=== PATIENT | female | born 1940 | race Caucasian/White ===

== ENCOUNTER 2020-09-21 11:47 | Inpatient (IN) | payer MEDICARE, OTHER, SELFPAY ==
[2020-09-21] VITALS (7 sets, daily range): BP systolic 158–203; BP diastolic 75–92; PULSE 55–65; RESP 16–46; TEMP 36.2–37.1; O2SAT 92–95; BMI 25.0; BMI 26.3; BMI 27.3
--- NOTE | 2020-09-21 12:09 | RAD_ITS ---
STUDY: X-RAY CHEST REASON FOR EXAM: Female, 79 years old. Weakness x3 days. TECHNIQUE: Single AP portable view of the chest. COMPARISON: 01/16/2017 FINDINGS: EKG leads overlie the chest There are interstitial changes of the lungs. There is no demonstrated pleural abnormality. Normal size heart. Normal mediastinum and daniel. Normal visualized pulmonary arteries. There is atherosclerotic calcification of the aortic arch with tortuosity. There are diffuse degenerative changes of the visualized thoracic spine. There is degenerative osteoarthritis of the bilateral shoulders. Stable retrocardiac hiatal hernia RAD/Chest 1 View (Portable) IMPRESSION: Degenerative changes, as described above. No demonstrated acute cardiopulmonary process. No interval change Electronically Signed: Song Quintanilla MD at 13:55 EST , Service support ,
--- NOTE | 2020-09-21 12:09 | CT_ITS ---
STUDY: CT BRAIN WITHOUT CONTRAST REASON FOR EXAM: Female, 79 years old. WEAKNESS RADIATION DOSAGE (If Supplied By Facility): CTDIvol = ( 44.99 ) mGy, DLP = ( 829.85 ) mGycm TECHNIQUE: Transaxial CT imaging of the brain was performed without administration of intravenous contrast material. Individualized dose optimization techniques were used for this CT. COMPARISON: None. FINDINGS: There is cerebral atrophy with widening of the extra-axial spaces and ventricular dilatation. There are areas of decreased attenuation within the white matter tracts of the supratentorial brain, consistent with microvascular disease changes. There is no intracranial hemorrhage. There are no findings of an acute ischemic infarction. CT/Brain/Head without Contrast IMPRESSION: Chronic involutional changes of the brain. Electronically Signed: Keyla Villagomez MD at 13:33 EST Tel , Service support ,
--- NOTE | 2020-09-21 12:10 | EKG12_ITS ---
Test Reason : WEAKNESS Blood Pressure : / mmHG Vent. Rate : 055 BPM Atrial Rate : 055 BPM P-R Int : 278 ms QRS Dur : 120 ms QT Int : 440 ms P-R-T Axes : 045 -25 128 degrees QTc Int : 420 ms Sinus bradycardia with 1st degree A-V block Left ventricular hypertrophy with QRS widening and repolarization abnormality Abnormal ECG Confirmed by CHARLES HAMEED, LEXI ([id number]), editor managing newspaper MATTHEW TBOIAS ([id number]) on 09/23/2020 1:45:30 PM Referred By: ANU Confirmed By:LEXI SOTO MD
--- NOTE | 2020-09-21 12:13 | ED.VIS.GEN ---
History of Present Illness Chief Complaint: Weakness Informant: Patient, Family Onset: Days - 3 Context: Gradual Onset Timing: Continuous Quality: sore Location: R hip Current Severity: Severe Maximum Severity: Severe Worsened by: moving/trying to stand/walk Relieved by: remaining still Associated Symptoms: confused Narrative: Patient is in assisted living, has had a health aide checking on her last couple days, she has been confused, she has had blood pressures in the 140-160 range systolic but heart rates in the 50s. Patient denies any lightheadedness or syncope/near syncope but has been more confused whereas she is usually very sharp, and getting weak. Today she was unable to stand or walk. She complains of discomfort in her right hip intermittently, it sounds like she is basically having this whenever she tries to stand or walk but states that is not what is limiting her, it is the weakness. She points to her right upper pelvis, not her hip joint. She denies any other new symptoms. She has not had Covid 19, and did have the 2 vaccines for it. - Past Medical History (1) Coronary artery disease Status: Chronic (2) Anxiety disorder Status: Chronic (3) Bipolar disorder Status: Chronic (4) HTN (hypertension) Status: Chronic (5) Hiatal hernia Status: Chronic (6) History of DVT (deep vein thrombosis) Status: Chronic Past Medical History - Allergies and Home Meds Allergies/Adverse Reactions: Allergies ciprofloxacin [From Cipro] Allergy (Verified 09/21/20 11:53) Itching sulfamethoxazole [From Bactrim] Allergy (Verified 09/21/20 11:53) Itching trimethoprim [From Bactrim] Allergy (Verified 09/21/20 11:53) Itching Primary Care Physician: Edu Hdz MD [Primary Care Provider] - Surgical History: angioplasty, hysterectomy, total hip arthroplasty Lives: - - Assisted living Smoking Status: Never smoker Review of Systems General: Reports: Malaise. Denies: Chills, Fever, Sweats Eyes: Denies: Visual changes - bilaterally, Diplopia ENT: Denies: Rhinorrhea, Sore throat Cardiovascular: Denies: Chest pain, Palpitations Respiratory: Denies: Dyspnea, Cough, Dyspnea on exertion Gastrointestinal: Denies: Abdominal pain, Nausea, Vomiting, Diarrhea, Melena, Hematochezia Genitourinary: Denies: Dysuria, Hematuria, Frequency Musculoskeletal: Reports: Extremity Pain - R hip only - see HPI. Denies: Myalgias, Back pain Skin: Denies: Rash, Wounds Neurological: Reports: - - confused. Denies: Headache, Weakness, Numbness Physical Exam Vital Signs/Narrative: Vital Signs Temp Pulse Resp BP Pulse Ox 09/21/20 11:49 97.7 F L 58 L 46 H 197/85 H 92 Inital Vital Signs reviewed: Yes General: Well nourished, Well developed, No Acute Distress Head: Normocephalic, Atraumatic Eyes: Perrl, EOMI ENT: Moist mucous membranes, No rhinorrhea Neck: Supple, Nontender, No lymphadenopathy Cardiovascular: Regular rate, Regular rhythm, No murmurs, Bradycardia Respiratory: No distress, CTA bilaterally, Chest nontender Abdomen: Soft, Nontender, Nondistended, Normal bowel sounds Back: Nontender, Normal Inspection Extremities: Tenderness - Mildly tender at the right pelvic brim and ASIS, but not the greater trochanter or the rest of the extremities. Painless internal/external rotation of the right hip. Increased pain at the right pelvis with right thigh flexion which the patient is able to do without assistance., Edema - 1+ both lower extremities, symmetric, without signs of acute cellulitis. Negative for: Calf Tenderness Skin: Normal color, No rash, No Trauma Neurological: Alert, Cranial nerves II-XII grossly intact, Normal Strength, Normal Sensation, - - Oriented to person and place not time Psychological: Normal affect, Normal Mood Diagnostic/Tx/Re-eval Impressions Brain CT 09/21/20 12:09 IMPRESSION: Chronic involutional changes of the brain. Electronically Signed: Keyla Villagomez MD at 13:33 EST Tel , Service support , Chest X-Ray 09/21/20 12:09 IMPRESSION: Degenerative changes, as described above. No demonstrated acute cardiopulmonary process. No interval change Electronically Signed: Song Quintanilla MD at 13:55 EST , Service support , 09/21/20 12:09 Brain/Head without Contrast [CT] Stat Chest 1 View (Portable) [RAD] Stat 09/21/20 12:20 Mucosa - Nose SARS-CoV-2 Antigen (Rapid) - Final Laboratory Results 09/21/20 09/21/20 09/21/20 12:23 12:23 12:23 WBC 8.7 RBC 3.74 L Hgb 12.2 Hct 34.4 L MCV 92.0 MCH 32.6 H MCHC 35.5 RDW Std Deviation 41.4 RDW Coeff of [place] 12.2 Plt Count 187 MPV 10.0 Immature Gran % (Auto) 0.500 Neut % (Auto) 78.9 H Lymph % (Auto) 12.0 L [place] % (Auto) 7.9 Eos % (Auto) 0.5 Baso % (Auto) 0.2 Absolute Neuts (auto) 6.8 Absolute Lymphs (auto) 1.04 Nucleated RBC % 0 Sodium 114 L* Potassium 4.1 Chloride 76 L Carbon Dioxide 30.0 Anion Gap 8 BUN 22 H Creatinine 0.83 Estim Creat Clear Calc 42.04 Est GFR (MDRD) Af Amer 85 Est GFR (MDRD) Non-Af 70 BUN/Creatinine Ratio 26.5 H Glucose 102 Lactic Acid 0.8 Calcium 8.7 Total Bilirubin 0.40 AST 46 H ALT 20 Alkaline Phosphatase 69 Troponin I 0.152 H Total Protein 7.4 Albumin 3.3 Globulin 4.1 Albumin/Globulin Ratio 0.8 L Urine Color Urine Clarity Urine pH Ur Specific [place] Urine Protein Urine Glucose (UA) Urine Ketones Urine Occult Blood Urine Nitrite Urine Bilirubin Urine Urobilinogen Ur Leukocyte Esterase Urine RBC Urine WBC Ur Squamous Epith Cells Urine Bacteria Urine Mucus 09/21/20 12:45 WBC RBC Hgb Hct MCV MCH MCHC RDW Std Deviation RDW Coeff of [place] Plt Count MPV Immature Gran % (Auto) Neut % (Auto) Lymph % (Auto) [place] % (Auto) Eos % (Auto) Baso % (Auto) Absolute Neuts (auto) Absolute Lymphs (auto) Nucleated RBC % Sodium Potassium Chloride Carbon Dioxide Anion Gap BUN Creatinine Estim Creat Clear Calc Est GFR (MDRD) Af Amer Est GFR (MDRD) Non-Af BUN/Creatinine Ratio Glucose Lactic Acid Calcium Total Bilirubin AST ALT Alkaline Phosphatase Troponin I Total Protein Albumin Globulin Albumin/Globulin Ratio Urine Color Yellow Urine Clarity Clear Urine pH 7.0 Ur Specific [place] 1.010 Urine Protein 30 H Urine Glucose (UA) Normal Urine Ketones Negative Urine Occult Blood 10 H Urine Nitrite Negative Urine Bilirubin Negative Urine Urobilinogen Normal Ur Leukocyte Esterase 25 H Urine RBC 0 SEEN Urine WBC 0 SEEN Ur Squamous Epith Cells 0-5 SEEN Urine Bacteria 0 SEEN Urine Mucus 0 SEEN - Rhythm Strip Rhythm Strip: Sinus Rhythm Rate: 55 Ectopy: None - EKG Initial EKG Interpretation: No Acute Injury Pattern, Sinus Bradycardia, AV Block - 1st deg, Non-Specific ST Changes Prior: Unchanged - Medical Decision Making Patient was given slow normal saline, her work-up is consistent with hyponatremia and a slightly abnormal troponin but otherwise negative for anything acute. She does have bradycardia but has had no near syncopal episodes or lightheadedness. She is hypertensive and we have been watching that, since she has no signs of intracranial hemorrhage, my suspicion is that it is not primarily responsible for her mental status change, but I suspect her hyponatremia is. Plan is for admission and further work-up and treatment. ED Disposition - Plan for ED Patient: Disposition: Acute Care [facility] Diagnosis: Acute hyponatremia, Elevated troponin Referrals: Edu Hdz MD [Primary Care Provider] -
[2020-09-21] MEDS: Acetaminophen 325 MG Tablet 650 MG PO (12:35)
[2020-09-21 12:41] LABS: Absolute Lymphocyte Count 1.04 X10^3/uL (0.83-4.51); Absolute Neutrophil Count 6.8 X10^3/uL (2.0-7.7); Basophil# 0.02 X10^3/uL; Basophil% 0.2 % (0-1); Eosinophil# 0.04 X10^3/uL; Eosinophils% 0.5 % (0-5); Hematocrit 34.4 % (37-47); Hemoglobin 12.2 g/dL (12.0-15.0); Lymphocyte # 1.04 X10^3/ul (4.0); Mean Corp Hgb Conc 35.5 g/dL (32-36); Mean Corpuscular Hgb 32.6 pg (27.0-32.0); Monocyte# 0.68 X10^3/uL; Monocyte% 7.9 % (0-10); NRBC Flagged by Analyzer 0 % (0-5); Neutrophil # 6.84 X10^3/uL (2.7-7.7); Neutrophil % 78.9 % (47-70); Platelet Count 187 K/mm3 (150-450); RBC Distribution Width CV 12.2 % (11.6-14.6); RBC Distribution Width SD 41.4 fl (35.1-43.9); Red Blood Count 3.74 M/mm3 (4.2-5.4); White Blood Count 8.7 K/mm3 (4.4-11.0)
[2020-09-21 12:59] LABS: Lactic Acid 0.8 mmol/L (0.4-1.9)
[2020-09-21] MEDS: 0.9% Normal Saline 1,000 ML 150 ML IV (13:02)
[2020-09-21 13:04] LABS: Bacteria 0 SEEN /hpf (None Seen); Mucous, Urine 0 SEEN /hpf (<or=2+); Red Blood Cells-Urine 0 SEEN /hpf (0-5); White Blood Cells 0 SEEN /hpf (0-5)
[2020-09-21 13:11] LABS: ALB/GLOB Ratio 0.8 RATIO (0.9-2.4); AST(SGOT) 46 U/L (15-37); Alanine Aminotransfer ALT/SGPT 20 U/L (13-56); Albumin, Serum 3.3 g/dL (3.2-5.0); Alkaline Phosphatase 69 U/L (45-117); Anion Gap 8 (5-15); BUN 22 mg/dL (7-18); BUN/Creat Ratio 26.5 RATIO (10-20); Calcium,Total 8.7 mg/dL (8.5-10.1); Chloride 76 mmol/L (98-107); Creatinine, Serum 0.83 mg/dL (0.55-1.02); EST Glomerular Filtration Rate 70 mL/min (>60); Est Glom Filt Rate - Afr Amer 85 mL/min (>60); Estimated Creatinine Clearance 42.04 ml/min; Globulin 4.1 g/dL (2.2-4.2); Glucose 102 mg/dL (74-106); Potassium 4.1 mmol/L (3.5-5.1); Protein, Total 7.4 g/dL (6.4-8.2); Sodium Level 114 mmol/L (136-145)
[2020-09-21 13:12] LABS: Color, Urine Yellow (Yellow); Glucose, Dipstick Normal (Normal); Ketone-Dipstick Negative (Negative); Leukocyte Esterase-Dipstick 25 /ul (Negative); Nitrite-Dipstick Negative (Negative); Occult Blood-Urine 10 /ul (Negative); Protein-Dipstick 30 mg/dl (Negative); Urine Bilirubin Dipstick Negative (Negative); Urine Clarity Clear (Clear); Urine Urobilinogen Normal (Normal)
[2020-09-21 13:20] LABS: Squamous Epithelial Cells - UA 0-5 SEEN /hpf (5-10)
[2020-09-21] MEDS: cloNIDine HCl 0.1 MG Tablet PO (14:37)
--- NOTE | 2020-09-21 15:52 | HP.PCM_ITS ---
<Erika Almendarez [employer] PROFESSOR - Last Filed: 09/21/20 16:08> Problem List (1) Acute hyponatremia Status: Acute (2) Elevated troponin Status: Acute (3) Hiatal hernia Status: Chronic (4) HTN (hypertension) Status: Chronic (5) Bipolar disorder Status: Chronic (6) Anxiety disorder Status: Chronic (7) History of DVT (deep vein thrombosis) Status: Chronic (8) Coronary artery disease Status: Chronic History of Present Illness Date of Admission: 09/21/20 Chief Complaint: Weakness, confusion. The patient is a 79 year old F who presents to the emergency room from assisted living facility due to weakness and confusion. Patient's son at bedside states patient was recently started on diuretic for lower extremity swelling. Patient denies recent illness. She denies nausea, vomiting. Denies upper respiratory symptoms. Denies fever, chills. She states she has chronic intermittent diarrhea which has not worsened from her baseline. She denies chest pain. She has a past medical history of CAD with history of stent, hypertension, bipolar disorder, anxiety, hiatal hernia, history of DVT, venous stasis lower extremities. Past Medical History Past Medical History (Chronic Problems): Chronic Problems Hiatal hernia (Chronic) HTN (hypertension) (Chronic) Bipolar disorder (Chronic) Anxiety disorder (Chronic) History of DVT (deep vein thrombosis) (Chronic) Coronary artery disease (Chronic) Allergies ciprofloxacin [From Cipro] Allergy (Verified 09/21/20 11:53) Itching sulfamethoxazole [From Bactrim] Allergy (Verified 09/21/20 11:53) Itching trimethoprim [From Bactrim] Allergy (Verified 09/21/20 11:53) Itching Home Medications: Ambulatory Orders Medication Instructions Recorded Olanzapine [Zyprexa] 2.5 mg PO DAILY 08/12/16 Olanzapine [Zyprexa] 10 mg PO QHS 08/12/16 Senna [Senokot] 2 tablet PO BID 08/12/16 Aspirin E.C. 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 Paternal History Items: - - Denies known paternal medical history including cardiac history. Review of Systems Constitutional: Reports: Weakness. Denies: Chills, Fever, Weight Change HEENT: Denies: Head Aches, Sinus Congestion, Sinus Drainage Cardiovascular: Denies: Chest Pain, Palpitations Respiratory: Denies: Cough, Shortness of breath at rest, Sputum production Gastrointestinal: Reports: Diarrhea - Intermittent. Denies: Abdominal Pain, Nausea, Vomiting Genitourinary: Denies: Dysuria Musculoskeletal: Denies: Joint Pain, Joint Tenderness Skin: Denies: Rash, Wounds Neurological: Denies: Numbness, Tingling, Focal weakness Psychiatric: Reports: Anxiety Hematologic/ Lymphatic: Denies: Easy Bruising, Easy Bleeding VTE Information - Inpt Only VTE Present on Admission: No VTE Mechan Device Prophylaxis: None VTE Pharm Prophylaxis ordered?: Yes Patient Problems: Active and Suspected Problems Acute hyponatremia (Acute) Elevated troponin (Acute) - Physical Exam Vitals/I&O's: Vital Signs Temp Pulse Resp BP Pulse Ox 98.7 F 56 L 18 158/75 H 92 09/21/20 15:38 09/21/20 15:38 09/21/20 15:38 09/21/20 15:38 09/21/20 15:38 Oxygen Delivery Method Room Air Weight: 149 lb 3.2 oz Body Mass Index (BMI) 27.3 General: Alert, Oriented x3, Cooperative HEENT: Atraumatic, PERRLA, EOMI, Normocephalic Oral: Dry Mucosa Neck: Supple, No JVD, Negative Carotid Bruits Lungs: Clear to auscultation, Normal air movement Cardiovascular: Regular rate, No murmurs Abdomen: Bowel Sounds Present, Soft, Non Tender, Non-Distended Extremities: No clubbing, No cyanosis, Capillary Refill Less than 3 Seconds, Edema - Nonpitting bilateral lower extremities Skin: No rashes, No breakdown Musculoskeletal: No Tenderness to Palpation of Joints or Extremities Neurological: Cranial nerves II-XII grossly intact, Neuro grossly intact Psych/Mental Status: Normal Affect, Appropriate Microbiology Past 72 Hours 09/21/20 12:20 Mucosa - Nose SARS-CoV-2 Antigen (Rapid) - Final Laboratory Results 09/21/20 12:23: WBC 8.7, RBC 3.74 L, Hgb 12.2, Hct 34.4 L, MCV 92.0, MCH 32.6 H, MCHC 35.5, RDW Std Deviation 41.4, RDW Coeff of Pelon 12.2, Plt Count 187, MPV 10.0, Immature Gran % (Auto) 0.500, Neut % (Auto) 78.9 H, Lymph % (Auto) 12.0 L, [place] % (Auto) 7.9, Eos % (Auto) 0.5, Baso % (Auto) 0.2, Absolute Neuts (auto) 6.8, Absolute Lymphs (auto) 1.04, Nucleated RBC % 0 09/21/20 12:23: Sodium 114 L*, Potassium 4.1, Chloride 76 L, Carbon Dioxide 30.0, Anion Gap 8, BUN 22 H, Creatinine 0.83, Estim Creat Clear Calc 42.04, Est GFR (MDRD) Af Amer 85, Est GFR (MDRD) Non-Af 70, BUN/Creatinine Ratio 26.5 H, Glucose 102, Calcium 8.7, Total Bilirubin 0.40, AST 46 H, ALT 20, Alkaline Phosphatase 69, Troponin I 0.152 H, Total Protein 7.4, Albumin 3.3, Globulin 4.1, Albumin/Globulin Ratio 0.8 L 09/21/20 12:23: Lactic Acid 0.8 09/21/20 12:45: Urine Color Yellow, Urine Clarity Clear, Urine pH 7.0, Ur Specific [place] 1.010, Urine Protein 30 H, Urine Glucose (UA) Normal, Urine Ketones Negative, Urine Occult Blood 10 H, Urine Nitrite Negative, Urine Bilirubin Negative, Urine Urobilinogen Normal, Ur Leukocyte Esterase 25 H, Urine RBC 0 SEEN, Urine WBC 0 SEEN, Ur Squamous Epith Cells 0-5 SEEN, Urine Bacteria 0 SEEN, Urine Mucus 0 SEEN Current Medications Sodium Chloride () 1,000 mls @ 150 mls/hr IV .Q6H40M [facility] Last Admin: 09/21/20 13:02 Dose: 150 mls/hr Documented by: Sodium Chloride (0.9% Saline Lock 10 Ml Syringe) 10 - 40 ml IV UD PRN PRN Reason: SALINE FLUSH Assessment/Plan All Active Problems Acute hyponatremia (Acute) Elevated troponin (Acute) NSTEMI (non-ST elevated myocardial infarction) (Resolved) 1. Acute hyponatremia-hold triamterene/HCTZ regimen which was recently initiated. IV fluids. Trend BMP. 2. Elevated troponin-appears chronic. Patient denies symptoms. Trend enzymes. 3. Hypertension-elevated on admission. Received clonidine x1. Continue home olmesartan. Metoprolol switched to carvedilol. As needed hydralazine. 4. CAD, history of stent placement 2016-continue aspirin, beta-rosalinda. 5. Metabolic encephalopathy, weakness-secondary to #1. PT/OT. Brain CT unremarkable. UA and chest x-ray unremarkable. 6. Bipolar disorder-continue home medications. 7. Anxiety disorder-continue Xanax as needed. 8. Hiatal hernia-stable. 9. History of DVT-previously on Coumadin which has since been discontinued. DVT prophylaxis-Lovenox subcu CODE STATUS: Discussed with patient and patient's son at bedside in length including differences between full code, DNR CCA and DNR CC. Patient request DNR CCA no intubation CODE STATUS. This patient was seen by CARMELO Snell under the supervision of Dr. Weathers. <Titus Weathers F - Last Filed: 09/21/20 16:34> History of Present Illness The patient is a 79 year old F [] Past Medical History Allergies ciprofloxacin [From Cipro] Allergy (Verified 09/21/20 11:53) Itching sulfamethoxazole [From Bactrim] Allergy (Verified 09/21/20 11:53) Itching trimethoprim [From Bactrim] Allergy (Verified 09/21/20 11:53) Itching - Physical Exam Vitals/I&O's: Vital Signs Temp Pulse Resp BP Pulse Ox 98.7 F 56 L 18 158/75 H 92 09/21/20 15:38 09/21/20 15:38 09/21/20 15:38 09/21/20 15:38 09/21/20 15:38 Oxygen Delivery Method Room Air Weight: 149 lb 3.2 oz Body Mass Index (BMI) 27.3 Microbiology Past 72 Hours 09/21/20 12:20 Mucosa - Nose SARS-CoV-2 Antigen (Rapid) - Final Laboratory Results 09/21/20 12:23: WBC 8.7, RBC 3.74 L, Hgb 12.2, Hct 34.4 L, MCV 92.0, MCH 32.6 H, MCHC 35.5, RDW Std Deviation 41.4, RDW Coeff of [place] 12.2, Plt Count 187, MPV 10.0, Immature Gran % (Auto) 0.500, Neut % (Auto) 78.9 H, Lymph % (Auto) 12.0 L, [place] % (Auto) 7.9, Eos % (Auto) 0.5, Baso % (Auto) 0.2, Absolute Neuts (auto) 6.8, Absolute Lymphs (auto) 1.04, Nucleated RBC % 0 09/21/20 12:23: Sodium 114 L*, Potassium 4.1, Chloride 76 L, Carbon Dioxide 30.0, Anion Gap 8, BUN 22 H, Creatinine 0.83, Estim Creat Clear Calc 42.04, Est GFR (MDRD) Af Amer 85, Est GFR (MDRD) Non-Af 70, BUN/Creatinine Ratio 26.5 H, Glucose 102, Calcium 8.7, Total Bilirubin 0.40, AST 46 H, ALT 20, Alkaline Phosphatase 69, Troponin I 0.152 H, Total Protein 7.4, Albumin 3.3, Globulin 4.1, Albumin/Globulin Ratio 0.8 L 09/21/20 12:23: Lactic Acid 0.8 09/21/20 12:45: Urine Color Yellow, Urine Clarity Clear, Urine pH 7.0, Ur Specific [place] 1.010, Urine Protein 30 H, Urine Glucose (UA) Normal, Urine Ketones Negative, Urine Occult Blood 10 H, Urine Nitrite Negative, Urine Bilirubin Negative, Urine Urobilinogen Normal, Ur Leukocyte Esterase 25 H, Urine RBC 0 SEEN, Urine WBC 0 SEEN, Ur Squamous Epith Cells 0-5 SEEN, Urine Bacteria 0 SEEN, Urine Mucus 0 SEEN Current Medications Acetaminophen (Acetaminophen 325 Mg Tablet) 650 mg PO Q6H PRN PRN PRN Reason: Pain Score 1-10/Temp > 100.7 F Alprazolam (Alprazolam 0.5 Mg Tablet) 0.5 mg PO TID PRN PRN Reason: ANXIETY Amlodipine Besylate (Amlodipine 10 Mg Tablet) 10 mg PO DAILY JANINE Aspirin (Aspirin E.C. 81 Mg Tablet) 81 mg PO DAILY@0800 JANINE Carvedilol (Carvedilol 25 Mg Tablet) 25 mg PO BID JANINE Enoxaparin Sodium (Enoxaparin 40 Mg/0.4 Ml Syringe) 40 mg SC DAILY JANINE Hydralazine HCl (Hydralazine 20 Mg/Ml Vial) 5 mg IV Q6H PRN PRN PRN Reason: BLOOD PRESSURE Sodium Chloride () 1,000 mls @ 100 mls/hr IV .Q10H [facility] Non-Formulary Medication (Divalproex Sodium) 500 mg PO QHS JANINE Non-Formulary Medication (Olmesartan Medoxomil) 40 mg PO QHS JANINE Olanzapine (Olanzapine 2.5 Mg Tablet) 2.5 mg PO DAILY JANINE Olanzapine (Olanzapine 10 Mg Tablet) 10 mg PO QHS JANINE Ondansetron HCl (Ondansetron 4 Mg/2 Ml Vial) 4 mg IV Q8H PRN PRN PRN Reason: NAUSEA/VOMITING Senna (Senna Tablet) 2 tablet PO BID JANINE Sodium Chloride (0.9% Saline Lock 10 Ml Syringe) 10 - 40 ml IV UD PRN PRN Reason: SALINE FLUSH Timolol Maleate (Timolol 0.5% 5ml Opth.Btl) 1 drop EACH EYE BID [facility] Addendum: Dr. Weathers I personally examined the patient and reviewed the chart. I agree with the above. 79-year-old female who presents from assisted living with weakness and confusion. This started on Sunday and prior to this she had been normal. Per the son he denies knowing about any other symptoms prior to this. And the patient states that she denies any fevers or chills or dysuria. UA was unremarkable. She was found to have sodium of 114, this is the likely culprit of both her weakness and her confusion. We will start her on IV fluids at 100 and will hold her thiazide diuretic as well as her triamterene. Unfortunate she is also on Depakote for bipolar disorder which can cause hyponatremia and this will need to be continued. Her blood pressure was elevated in the 200s in the ER so her metoprolol was changed from 100 twice daily to Coreg 25 mg p.o. twice daily. Her thiazide diuretic and her triamterene were discontinued and she was placed on Norvasc as she is already on losartan. She did have some 1+ pitting edema in her bilateral lower extremities. This could be worsened by the Norvasc which was initiated here. Inpatient E&M: 43400 Init Hosp L3
[2020-09-21] MEDS: 0.9% Normal Saline 1,000 ML 100 ML IV (20:59)
[2020-09-21] MEDS: Divalproex Sodium 250 MG Tablet 500 MG PO (21:03)
[2020-09-21] MEDS: Carvedilol 25 MG Tablet PO (21:04)
[2020-09-21] MEDS: Losartan Potassium 100 MG Tablet PO (21:04)
[2020-09-21] MEDS: Timolol 0.5% 5ML OPTH.BTL 1 DRP EACH EYE (21:05)
[2020-09-21] MEDS: OLANZapine 10 MG Tablet PO (21:06)
[2020-09-21] MEDS: Senna Tablet 2 TABLET PO (21:07)
[2020-09-22] VITALS (13 sets, daily range): BP systolic 116–175; BP diastolic 61–90; PULSE 53–80; RESP 16–18; TEMP 36.3–36.8; O2SAT 92–94
[2020-09-22] MEDS: ALPRAZolam 0.5 MG Tablet PO (01:52)
[2020-09-22] MEDS: 0.9% Normal Saline 1,000 ML 100 ML IV (07:15)
[2020-09-22 07:26] LABS: Absolute Lymphocyte Count 1.65 X10^3/uL (0.83-4.51); Absolute Neutrophil Count 5.2 X10^3/uL (2.0-7.7); Basophil# 0.03 X10^3/uL; Basophil% 0.4 % (0-1); Eosinophil# 0.09 X10^3/uL; Eosinophils% 1.1 % (0-5); Hematocrit 34.9 % (37-47); Hemoglobin 12.3 g/dL (12.0-15.0); Lymphocyte # 1.65 X10^3/ul (4.0); Lymphocyte % 21.1 % (19-41); Mean Corp Hgb Conc 35.2 g/dL (32-36); Mean Corpuscular Hgb 32.5 pg (27.0-32.0); Mean Corpuscular Volume 92.1 fL (81-99); Mean Platelet Vol. 10.5 fl (6.2-12.0); Monocyte# 0.87 X10^3/uL; Monocyte% 11.1 % (0-10); NRBC Flagged by Analyzer 0 % (0-5); Neutrophil # 5.16 X10^3/uL (2.7-7.7); Neutrophil % 65.9 % (47-70); Platelet Count 184 K/mm3 (150-450); RBC Distribution Width CV 11.9 % (11.6-14.6); RBC Distribution Width SD 40.2 fl (35.1-43.9); Red Blood Count 3.79 M/mm3 (4.2-5.4); White Blood Count 7.8 K/mm3 (4.4-11.0)
[2020-09-22 08:08] LABS: Anion Gap 6 (5-15); BUN 16 mg/dL (7-18); BUN/Creat Ratio 27.2 RATIO (10-20); Calcium,Total 8.5 mg/dL (8.5-10.1); Chloride 81 mmol/L (98-107); Creatinine, Serum 0.59 mg/dL (0.55-1.02); EST Glomerular Filtration Rate 104 mL/min (>60); Est Glom Filt Rate - Afr Amer 126 mL/min (>60); Glucose 82 mg/dL (74-106); Potassium 3.4 mmol/L (3.5-5.1); Sodium Level 117 mmol/L (136-145)
[2020-09-22] MEDS: Enoxaparin 40 MG/0.4 ML Syringe SC (08:29)
[2020-09-22] MEDS: Aspirin E.C. 81 MG Tablet PO (08:30)
[2020-09-22] MEDS: OLANZapine 2.5 MG Tablet PO (08:30)
[2020-09-22] MEDS: Timolol 0.5% 5ML OPTH.BTL 1 DRP EACH EYE ×2 (08:30→20:57)
[2020-09-22] MEDS: amLODIPine 10 MG Tablet PO (08:30)
[2020-09-22] MEDS: Senna Tablet 2 TABLET PO ×2 (08:32→21:00)
[2020-09-22] MEDS: Carvedilol 25 MG Tablet PO ×2 (10:47→21:01)
[2020-09-22 11:26] LABS: Thyroid Stim Hormone (TSH) 3.56 uIU/mL (0.358-3.74)
[2020-09-22 11:52] LABS: Anion Gap 6 (5-15); BUN 15 mg/dL (7-18); Calcium,Total 8.5 mg/dL (8.5-10.1); Chloride 83 mmol/L (98-107); EST Glomerular Filtration Rate 102 mL/min (>60); Est Glom Filt Rate - Afr Amer 123 mL/min (>60); Glucose 104 mg/dL (74-106); Potassium 3.4 mmol/L (3.5-5.1); Sodium Level 117 mmol/L (136-145)
--- NOTE | 2020-09-22 12:12 | PCM.PROGNOTE ---
<EricksonErika MAINSPRING FORMER - Last Filed: 09/22/20 12:19> Patient Problems: Active and Suspected Problems Acute hyponatremia (Acute) Elevated troponin (Acute) Subjective: Patient seen and examined. Remains confused, denies other neurologic symptoms or complaints. Neuro exam within normal limits. Reports mild nausea. - Physical Exam Vitals/I&O's: Vital Signs Temp Pulse Resp BP Pulse Ox 97.4 F L 57 L 16 164/90 H 94 09/22/20 08:27 09/22/20 08:27 09/22/20 08:27 09/22/20 08:27 09/22/20 08:27 Oxygen Delivery Method Room Air Weight: 149 lb 3.2 oz Body Mass Index (BMI) 27.3 Intake and Output for Last 24 Hours 09/20/20 09/21/20 09/22/20 23:59 23:59 23:59 Intake Total 1775 / 1775 1450 / 1450 Balance 1775 / 1775 1450 / 1450 General: Alert, Cooperative, No apparent distress HEENT: Atraumatic, PERRLA, EOMI, Normocephalic Oral: Dry Mucosa Neck: Supple, No JVD, Negative Carotid Bruits Lungs: Clear to auscultation, Normal air movement Cardiovascular: Regular rate, No murmurs Abdomen: Bowel Sounds Present, Soft, Non Tender, Non-Distended Extremities: No clubbing, No cyanosis, No edema, Capillary Refill Less than 3 Seconds Skin: No rashes, No breakdown Musculoskeletal: No Tenderness to Palpation of Joints or Extremities Neurological: Cranial nerves II-XII grossly intact, Neuro grossly intact Psych/Mental Status: Normal Affect, Appropriate Microbiology Past 72 Hours 09/21/20 12:20 Mucosa - Nose SARS-CoV-2 Antigen (Rapid) - Final Laboratory Results 09/21/20 12:23: WBC 8.7, RBC 3.74 L, Hgb 12.2, Hct 34.4 L, MCV 92.0, MCH 32.6 H, MCHC 35.5, RDW Std Deviation 41.4, RDW Coeff of Pelon 12.2, Plt Count 187, MPV 10.0, Immature Gran % (Auto) 0.500, Neut % (Auto) 78.9 H, Lymph % (Auto) 12.0 L, [place] % (Auto) 7.9, Eos % (Auto) 0.5, Baso % (Auto) 0.2, Absolute Neuts (auto) 6.8, Absolute Lymphs (auto) 1.04, Nucleated RBC % 0 09/21/20 12:23: Sodium 114 L*, Potassium 4.1, Chloride 76 L, Carbon Dioxide 30.0, Anion Gap 8, BUN 22 H, Creatinine 0.83, Estim Creat Clear Calc 42.04, Est GFR (MDRD) Af Amer 85, Est GFR (MDRD) Non-Af 70, BUN/Creatinine Ratio 26.5 H, Glucose 102, Calcium 8.7, Total Bilirubin 0.40, AST 46 H, ALT 20, Alkaline Phosphatase 69, Troponin I 0.152 H, Total Protein 7.4, Albumin 3.3, Globulin 4.1, Albumin/Globulin Ratio 0.8 L 09/21/20 12:23: Lactic Acid 0.8 09/21/20 12:45: Urine Color Yellow, Urine Clarity Clear, Urine pH 7.0, Ur Specific [place] 1.010, Urine Protein 30 H, Urine Glucose (UA) Normal, Urine Ketones Negative, Urine Occult Blood 10 H, Urine Nitrite Negative, Urine Bilirubin Negative, Urine Urobilinogen Normal, Ur Leukocyte Esterase 25 H, Urine RBC 0 SEEN, Urine WBC 0 SEEN, Ur Squamous Epith Cells 0-5 SEEN, Urine Bacteria 0 SEEN, Urine Mucus 0 SEEN 09/22/20 06:15: WBC 7.8, RBC 3.79 L, Hgb 12.3, Hct 34.9 L, MCV 92.1, MCH 32.5 H, MCHC 35.2, RDW Std Deviation 40.2, RDW Coeff of Pelon 11.9, Plt Count 184, MPV 10.5, Immature Gran % (Auto) 0.400, Neut % (Auto) 65.9, Lymph % (Auto) 21.1, [place] % (Auto) 11.1 H, Eos % (Auto) 1.1, Baso % (Auto) 0.4, Absolute Neuts (auto) 5.2, Absolute Lymphs (auto) 1.65, Nucleated RBC % 0 09/22/20 06:15: Sodium 117 L*, Potassium 3.4 L, Chloride 81 L, Carbon Dioxide 30.0, Anion Gap 6, BUN 16, Creatinine 0.59, Estim Creat Clear Calc 34.90, Est GFR (MDRD) Af Amer 126, Est GFR (MDRD) Non-Af 104, BUN/Creatinine Ratio 27.2 H, Glucose 82, Calcium 8.5 09/22/20 06:15: TSH 3.56 09/22/20 11:20: Serum Osmolality Pending 09/22/20 11:20: Sodium 117 L*, Potassium 3.4 L, Chloride 83 L, Carbon Dioxide 28.0, Anion Gap 6, BUN 15, Creatinine 0.60, Estim Creat Clear Calc 34.90, Est GFR (MDRD) Af Amer 123, Est GFR (MDRD) Non-Af 102, BUN/Creatinine Ratio 25.0 H, Glucose 104, Calcium 8.5, Troponin I 0.153 H Current Medications Acetaminophen (Acetaminophen 325 Mg Tablet) 650 mg PO Q6H PRN PRN PRN Reason: Pain Score 1-10/Temp > 100.7 F Alprazolam (Alprazolam 0.5 Mg Tablet) 0.5 mg PO TID PRN PRN PRN Reason: ANXIETY Last Admin: 09/22/20 01:52 Dose: 0.5 mg Documented by: Amlodipine Besylate (Amlodipine 10 Mg Tablet) 10 mg PO DAILY [facility] Last Admin: 09/22/20 08:30 Dose: 10 mg Documented by: Aspirin (Aspirin E.C. 81 Mg Tablet) 81 mg PO DAILY@0800 [facility] Last Admin: 09/22/20 08:30 Dose: 81 mg Documented by: Carvedilol (Carvedilol 25 Mg Tablet) 25 mg PO BID [facility] Last Admin: 09/22/20 10:47 Dose: 25 mg Documented by: Divalproex Sodium (Divalproex Sodium 250 Mg Tablet) 500 mg PO QHS [facility] Last Admin: 09/21/20 21:03 Dose: 500 mg Documented by: Enoxaparin Sodium (Enoxaparin 40 Mg/0.4 Ml Syringe) 40 mg SC DAILY [facility] Last Admin: 09/22/20 08:29 Dose: 40 mg Documented by: Hydralazine HCl (Hydralazine 20 Mg/Ml Vial) 5 mg IV Q6H PRN PRN PRN Reason: BLOOD PRESSURE Sodium Chloride () 1,000 mls @ 125 mls/hr IV .Q8H [facility] Stop: 09/22/20 18:59 Losartan Potassium (Losartan Potassium 100 Mg Tablet) 100 mg PO QHS [facility] Last Admin: 09/21/20 21:04 Dose: 100 mg Documented by: Olanzapine (Olanzapine 2.5 Mg Tablet) 2.5 mg PO DAILY [facility] Last Admin: 09/22/20 08:30 Dose: 2.5 mg Documented by: Olanzapine (Olanzapine 10 Mg Tablet) 10 mg PO QHS [facility] Last Admin: 09/21/20 21:06 Dose: 10 mg Documented by: Ondansetron HCl (Ondansetron 4 Mg/2 Ml Vial) 4 mg IV Q8H PRN PRN PRN Reason: NAUSEA/VOMITING Senna (Senna Tablet) 2 tablet PO BID [facility] Last Admin: 09/22/20 08:32 Dose: 1 tablet Documented by: Sodium Chloride (0.9% Saline Lock 10 Ml Syringe) 10 - 40 ml IV UD PRN PRN Reason: SALINE FLUSH Timolol Maleate (Timolol 0.5% 5ml Opth.Btl) 1 drop EACH EYE BID [facility] Last Admin: 09/22/20 08:30 Dose: 1 drop Documented by: Medical Necessity - Tobacco Use Smoking Status: Former smoker Tobacco Use: Cigarettes Assessment/Plan All Active Problems Acute hyponatremia (Acute) Elevated troponin (Acute) 1. Acute hyponatremia-hold triamterene/HCTZ regimen which was recently initiated. Hold Depakote. IV fluids. Trend BMP. Urine studies ordered, pending. TSH normal. 2. Elevated troponin-appears chronic. Patient denies symptoms. Enzymes did not trend. 3. Hypertension-Continue home olmesartan. Metoprolol switched to carvedilol. Initiated on amlodipine. 4. CAD, history of stent placement 2016-continue aspirin, beta-casa. 5. Metabolic encephalopathy, weakness-secondary to #1. PT/OT. Brain CT unremarkable. UA and chest x-ray unremarkable. 6. Bipolar disorder-continue home medications. 7. Anxiety disorder-continue Xanax as needed. 8. Hiatal hernia-stable. 9. History of DVT-previously on Coumadin which has since been discontinued. DVT prophylaxis-Lovenox subcu This patient was seen by CARMELO Snell under the supervision of Dr. Resendiz. <Jesus Resendiz E - Last Filed: 09/22/20 12:32> - Physical Exam Vitals/I&O's: Vital Signs Temp Pulse Resp BP Pulse Ox 97.4 F L 57 L 16 164/90 H 94 09/22/20 08:27 09/22/20 08:27 09/22/20 08:27 09/22/20 08:27 09/22/20 08:27 Oxygen Delivery Method Room Air Weight: 149 lb 3.201 oz Body Mass Index (BMI) 27.3 Intake and Output for Last 24 Hours 09/20/20 09/21/20 09/22/20 23:59 23:59 23:59 Intake Total 1775 / 1775 1450 / 1450 Balance 1775 / 1775 1450 / 1450 Microbiology Past 72 Hours 09/21/20 12:20 Mucosa - Nose SARS-CoV-2 Antigen (Rapid) - Final Laboratory Results 09/21/20 12:23: WBC 8.7, RBC 3.74 L, Hgb 12.2, Hct 34.4 L, MCV 92.0, MCH 32.6 H, MCHC 35.5, RDW Std Deviation 41.4, RDW Coeff of Pelon 12.2, Plt Count 187, MPV 10.0, Immature Gran % (Auto) 0.500, Neut % (Auto) 78.9 H, Lymph % (Auto) 12.0 L, [place] % (Auto) 7.9, Eos % (Auto) 0.5, Baso % (Auto) 0.2, Absolute Neuts (auto) 6.8, Absolute Lymphs (auto) 1.04, Nucleated RBC % 0 09/21/20 12:23: Sodium 114 L*, Potassium 4.1, Chloride 76 L, Carbon Dioxide 30.0, Anion Gap 8, BUN 22 H, Creatinine 0.83, Estim Creat Clear Calc 42.04, Est GFR (MDRD) Af Amer 85, Est GFR (MDRD) Non-Af 70, BUN/Creatinine Ratio 26.5 H, Glucose 102, Calcium 8.7, Total Bilirubin 0.40, AST 46 H, ALT 20, Alkaline Phosphatase 69, Troponin I 0.152 H, Total Protein 7.4, Albumin 3.3, Globulin 4.1, Albumin/Globulin Ratio 0.8 L 09/21/20 12:23: Lactic Acid 0.8 09/21/20 12:45: Urine Color Yellow, Urine Clarity Clear, Urine pH 7.0, Ur Specific [place] 1.010, Urine Protein 30 H, Urine Glucose (UA) Normal, Urine Ketones Negative, Urine Occult Blood 10 H, Urine Nitrite Negative, Urine Bilirubin Negative, Urine Urobilinogen Normal, Ur Leukocyte Esterase 25 H, Urine RBC 0 SEEN, Urine WBC 0 SEEN, Ur Squamous Epith Cells 0-5 SEEN, Urine Bacteria 0 SEEN, Urine Mucus 0 SEEN 09/22/20 06:15: WBC 7.8, RBC 3.79 L, Hgb 12.3, Hct 34.9 L, MCV 92.1, MCH 32.5 H, MCHC 35.2, RDW Std Deviation 40.2, RDW Coeff of Pelon 11.9, Plt Count 184, MPV 10.5, Immature Gran % (Auto) 0.400, Neut % (Auto) 65.9, Lymph % (Auto) 21.1, [place] % (Auto) 11.1 H, Eos % (Auto) 1.1, Baso % (Auto) 0.4, Absolute Neuts (auto) 5.2, Absolute Lymphs (auto) 1.65, Nucleated RBC % 0 09/22/20 06:15: Sodium 117 L*, Potassium 3.4 L, Chloride 81 L, Carbon Dioxide 30.0, Anion Gap 6, BUN 16, Creatinine 0.59, Estim Creat Clear Calc 34.90, Est GFR (MDRD) Af Amer 126, Est GFR (MDRD) Non-Af 104, BUN/Creatinine Ratio 27.2 H, Glucose 82, Calcium 8.5 09/22/20 06:15: TSH 3.56 09/22/20 11:20: Serum Osmolality Pending 09/22/20 11:20: Sodium 117 L*, Potassium 3.4 L, Chloride 83 L, Carbon Dioxide 28.0, Anion Gap 6, BUN 15, Creatinine 0.60, Estim Creat Clear Calc 34.90, Est GFR (MDRD) Af Amer 123, Est GFR (MDRD) Non-Af 102, BUN/Creatinine Ratio 25.0 H, Glucose 104, Calcium 8.5, Troponin I 0.153 H Current Medications Acetaminophen (Acetaminophen 325 Mg Tablet) 650 mg PO Q6H PRN PRN PRN Reason: Pain Score 1-10/Temp > 100.7 F Alprazolam (Alprazolam 0.5 Mg Tablet) 0.5 mg PO TID PRN PRN PRN Reason: ANXIETY Last Admin: 09/22/20 01:52 Dose: 0.5 mg Documented by: Amlodipine Besylate (Amlodipine 10 Mg Tablet) 10 mg PO DAILY [facility] Last Admin: 09/22/20 08:30 Dose: 10 mg Documented by: Aspirin (Aspirin E.C. 81 Mg Tablet) 81 mg PO DAILY@0800 [facility] Last Admin: 09/22/20 08:30 Dose: 81 mg Documented by: Carvedilol (Carvedilol 25 Mg Tablet) 25 mg PO BID [facility] Last Admin: 09/22/20 10:47 Dose: 25 mg Documented by: Divalproex Sodium (Divalproex Sodium 250 Mg Tablet) 500 mg PO QHS [facility] Last Admin: 09/21/20 21:03 Dose: 500 mg Documented by: Enoxaparin Sodium (Enoxaparin 40 Mg/0.4 Ml Syringe) 40 mg SC DAILY [facility] Last Admin: 09/22/20 08:29 Dose: 40 mg Documented by: Hydralazine HCl (Hydralazine 20 Mg/Ml Vial) 5 mg IV Q6H PRN PRN PRN Reason: BLOOD PRESSURE Sodium Chloride () 1,000 mls @ 125 mls/hr IV .Q8H [facility] Stop: 09/22/20 18:59 Last Admin: 09/22/20 12:15 Dose: 125 mls/hr Documented by: Losartan Potassium (Losartan Potassium 100 Mg Tablet) 100 mg PO QHS [facility] Last Admin: 09/21/20 21:04 Dose: 100 mg Documented by: Olanzapine (Olanzapine 2.5 Mg Tablet) 2.5 mg PO DAILY [facility] Last Admin: 09/22/20 08:30 Dose: 2.5 mg Documented by: Olanzapine (Olanzapine 10 Mg Tablet) 10 mg PO QHS [facility] Last Admin: 09/21/20 21:06 Dose: 10 mg Documented by: Ondansetron HCl (Ondansetron 4 Mg/2 Ml Vial) 4 mg IV Q8H PRN PRN PRN Reason: NAUSEA/VOMITING Senna (Senna Tablet) 2 tablet PO BID [facility] Last Admin: 09/22/20 08:32 Dose: 1 tablet Documented by: Sodium Chloride (0.9% Saline Lock 10 Ml Syringe) 10 - 40 ml IV UD PRN PRN Reason: SALINE FLUSH Timolol Maleate (Timolol 0.5% 5ml Opth.Btl) 1 drop EACH EYE BID [facility] Last Admin: 09/22/20 08:30 Dose: 1 drop Documented by: Assessment/Plan Hospitalist note: I am seeing this patient in conjunction with Erika Almendarez. I independently seen and examined the patient. Progress note above, laboratory data and imaging studies reviewed and I concur with above treatment plan. Patient presented to the emergency room because of weakness, found to have hyponatremia after she was started on HCTZ/triamterene recently. Today, she remained confused which is probably her baseline. No significant complaints. She reported mild nausea this morning and she threw up once. Her vital signs are stable, afebrile. - Physical Exam General: Alert, Cooperative, No apparent distress. HEENT: Atraumatic, PERRLA, EOMI. Neck: Supple, No JVD, Negative Carotid Bruits, Trachea Midline, Thyroid Normal. Lungs: Clear to auscultation, Normal air movement, No rhonchi, No wheeze, No rales. Cardiovascular: Regular rate, Regular Rhythm, Normal S1, Normal S2, PMI Normal. Abdomen: Bowel Sounds Present, Soft, Non Tender, Non-Distended, No Hepato-splenomegaly. Extremities: No clubbing, No cyanosis, No edema Skin: No rashes, No breakdown Neurological: Cranial nerves are intact, neuro grossly intact Vital Signs are stable. 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 She has been on normal saline. Her mentation is normal, confused at baseline. No reported seizure. Sodium improved today from 114-117. HCTZ/triamterene held. Plan: Continue IV normal saline, check serum and urine is modality, urine sodium and potassium, repeat BMP tomorrow morning. #2 abnormal cardiac enzymes: Troponin is minimally elevated. Patient denied chest pain. No acute ischemic changes on EKG. She had troponin on January, that was borderline elevated as well after she had non-ST relation RI on September,. She is on aspirin and losartan as well as Coreg. Plan: 2D echocardiogram #3 other chronic medical problems: Stable, continue current medications as above. Inpatient E&M: 70690 Subs Hosp L2
[2020-09-22] MEDS: 0.9% Normal Saline 1,000 ML 125 ML IV (12:15)
--- NOTE | 2020-09-22 12:26 | ECHOD_ITS ---
Reason For Study: ELEVATED TROPONIN Procedure This was a 2D Doppler, Color Flow transthoracic echocardiogram. Exam performed portable in patient room. Left Ventricle Normal LV size. Mild concentric left ventricular hypertrophy. Left ventricular systolic function is normal. The estimated ejection fraction is 55 %. No regional wall motion abnormalities noted. Right Ventricle Normal RV size. Normal systolic function. Atria The left atrium is severely enlarged. Normal right atrium. Mitral Valve Normal mitral valve. Tricuspid Valve Normal tricuspid valve. Mild (1+) tricuspid valve insufficiency. Pulmonary artery systolic pressure is 40 mmHg. Aortic Valve Normal aortic valve. Trisinus/trileaflet aortic valve. Mild (1+) aortic valve insufficiency. Pulmonic Valve Normal pulmonic valve. Great Vessels Normal aortic root. The pulmonary artery is normal size. Normal inferior vena cava. Pericardium/Pleural No pericardial effusion. MMode/2D Measurements & Calculations LVIDd: 4.2 cm IVSd: 1.2 cm Ao root diam: 3.3 cm LVIDs: 2.4 cm LVPWd: 1.2 cm RVDd: 3.4 cm FS: 42.4 % LAV(MOD-bp): 112.9 ml LA A4 area: 32.5 cm2 LA dimension(2D): 3.5 cm LAV(MOD-bp) Indexed: 66.9 ml/m2 LAV(MOD-sp2): 102.0 ml LAV(MOD-sp4): 124.2 ml RA A4 area: 17.2 cm2 Time Measurements MV dec time: 0.36 sec Doppler Measurements & Calculations MV E max hola: 95.8 cm/sec Lat Peak E' Hola: 4.0 cm/sec Med Peak E' Hola: 4.5 cm/sec MV A max hola: 104.4 cm/sec E/E' lat: 23.9 E/E' med: 21.5 MV E/A: 0.92 Ao V2 max: 134.4 cm/sec AI max hola: 364.4 cm/sec LV V1 max: 83.5 cm/sec Ao max P.2 mmHg AI max P.1 mmHg LV V1 max P.8 mmHg AI dec slope: 188.2 cm/sec2 AI P1/2t: 567.2 msec PA V2 max: 106.0 cm/sec TR max hola: 302.7 cm/sec TR max P.7 mmHg Interpretation Summary Normal LV size. Left ventricular systolic function is normal. The estimated ejection fraction is 55 %. The left atrium is severely enlarged. Mild (1+) aortic valve insufficiency. Pulmonary artery systolic pressure is 40 mmHg. Ordering Physician: Erika Almendarez Referring Physician: Edu Hdz Performed By: Tiara Mcdonald RDCS, RVT
[2020-09-22 12:39] LABS: Osmolality, Serum 245 mOsm/KG (280-301)
[2020-09-22] MEDS: Potassium Chloride Oral Tablet 20 MEQ 40 MEQ PO (13:08)
[2020-09-22] MEDS: hydrALAZINE 20 MG/ML Vial 5 MG IV (15:38)
[2020-09-22] MEDS: Acetaminophen 325 MG Tablet 650 MG PO (15:39)
--- NOTE | 2020-09-22 15:56 | CASEMGMT ---
Social Work Per chart, pt is from [facility]. Contacted Kristine VAZQUEZ (produce shipper) [phone], to inquire about return. Kristine would be able to accept her back and would prefer direct return due to risk of exposure for COVID. Inquired about HHC. Kristine would like to evaluate her when she returns and could order HHC if needed. SW to send clinical information. (no fax - requested email: [email or web address])Therapy ordered but notes are not in yet, but will update her with progress and recommendations. Met with patient and son, Kun, in room. Discussed returning to [facility]. Pt and son agreeable to return and express great care there. Inquired about DC to rehab, if needed. Pt and son agreeable. Provided list of [facility] and [facility] SNFs. Explained pt has Medicare and secondary insurance and that coverage. Pt [facility] to [facility] [place] and would prefer to go there if needed. Explained once therapy and doctor's give their recommendations, SW to follow up on DC plan. Both appreciative. Will continue to follow. Courtney Johnson, L[employer]ES[employer] DIRECTOR IMAGING
[2020-09-22 16:42] LABS: Urine Sodium 72 mmol/L (Not Establ.)
[2020-09-22 17:14] LABS: Osmolality, Urine 293 mOsm/KG
[2020-09-22 17:21] LABS: Sodium Level 115 mmol/L (136-145)
[2020-09-22 19:14] LABS: BUN 18 mg/dL (7-18); BUN/Creat Ratio 29.3 RATIO (10-20); Calcium,Total 8.5 mg/dL (8.5-10.1); Chloride 82 mmol/L (98-107); Creatinine, Serum 0.61 mg/dL (0.55-1.02); EST Glomerular Filtration Rate 99 mL/min (>60); Est Glom Filt Rate - Afr Amer 120 mL/min (>60); Glucose 99 mg/dL (74-106)
[2020-09-22] MEDS: Divalproex Sodium 250 MG Tablet 500 MG PO (21:00)
[2020-09-22] MEDS: OLANZapine 10 MG Tablet PO (21:00)
[2020-09-22] MEDS: Losartan Potassium 100 MG Tablet PO (21:01)
[2020-09-23] VITALS (10 sets, daily range): BP systolic 113–153; BP diastolic 61–70; PULSE 63–88; RESP 16–18; TEMP 36.6–37.1; O2SAT 92–96
[2020-09-23 00:01] LABS: Anion Gap 10 (5-15); BUN 21 mg/dL (7-18); Calcium,Total 8.6 mg/dL (8.5-10.1); Chloride 81 mmol/L (98-107); Creatinine, Serum 0.66 mg/dL (0.55-1.02); EST Glomerular Filtration Rate 92 mL/min (>60); Est Glom Filt Rate - Afr Amer 111 mL/min (>60); Glucose 113 mg/dL (74-106); Sodium Level 115 mmol/L (136-145)
[2020-09-23 06:32] LABS: Anion Gap 9 (5-15); BUN 22 mg/dL (7-18); Calcium,Total 8.8 mg/dL (8.5-10.1); Chloride 81 mmol/L (98-107); Creatinine, Serum 0.65 mg/dL (0.55-1.02); EST Glomerular Filtration Rate 93 mL/min (>60); Est Glom Filt Rate - Afr Amer 113 mL/min (>60); Glucose 98 mg/dL (74-106); Potassium 3.8 mmol/L (3.5-5.1); Sodium Level 116 mmol/L (136-145)
[2020-09-23] MEDS: Aspirin E.C. 81 MG Tablet PO (08:59)
[2020-09-23] MEDS: Carvedilol 25 MG Tablet PO ×2 (08:59→21:25)
[2020-09-23] MEDS: Timolol 0.5% 5ML OPTH.BTL 1 DRP EACH EYE ×2 (08:59→21:25)
[2020-09-23] MEDS: Enoxaparin 40 MG/0.4 ML Syringe SC (08:59)
[2020-09-23] MEDS: OLANZapine 2.5 MG Tablet PO (08:59)
[2020-09-23] MEDS: amLODIPine 10 MG Tablet PO (09:00)
[2020-09-23] MEDS: Senna Tablet 2 TABLET PO ×2 (09:00→21:25)
--- NOTE | 2020-09-23 11:12 | PN_ITS ---
Patient Problems: Active and Suspected Problems Acute hyponatremia (Acute) Elevated troponin (Acute) Subjective: Chief complaint: Follow-up after admission for severe hyponatremia and abnormal cardiac enzymes. Patient seen and examined. No acute events overnight. She is still complaining of generalized weakness, no specific complaints. Denied chest pain or shortness of breath. Her vital signs has been stable. - Physical Exam Vitals/I&O's: Vital Signs Temp Pulse Resp BP Pulse Ox 98.7 F 87 18 115/67 95 09/23/20 08:30 09/23/20 08:30 09/23/20 08:30 09/23/20 08:30 09/23/20 08:30 Oxygen Delivery Method Room Air Weight: 149 lb 3.201 oz Body Mass Index (BMI) 27.3 Intake and Output for Last 24 Hours 09/21/20 09/22/20 09/23/20 23:59 23:59 23:59 Intake Total 1775 / 1775 2650 / 2650 0 / 0 Output Total 675 / 675 200 / 200 Balance 1775 / 1775 1974 / 1974 -200 / -200 General: Alert, Cooperative, No apparent distress, Well developed HEENT: Atraumatic, PERRLA, EOMI, Normocephalic Oral: Moist Mucosa, No Gingival or Mucosal Lesions/ Ulcerations Neck: Supple, No JVD, Negative Carotid Bruits, Trachea Midline, Thyroid Normal Size and Texture Lungs: Clear to auscultation, No rhonchi, No wheeze, No rales, Diminished Cardiovascular: Regular rate, Regular Rhythm, Normal S1, Normal S2, PMI Normal Abdomen: Bowel Sounds Present, Soft, Non Tender, Non-Distended, No Hepato- splenomegaly Extremities: No clubbing, No cyanosis, Edema - Trace edema. Skin: No rashes, No breakdown Lymphatic: No Cervical, Supraclavicular, or Inguinal Adenopathy Neurological: Cranial nerves II-XII grossly intact, Motor Exam 5/5 strength throughout Psych/Mental Status: Normal Affect, Appropriate Microbiology Past 72 Hours 09/21/20 13:35 Blood Culture (Wb) - Left Hand Blood Culture - Preliminary No growth in 48 hours. 09/21/20 12:23 Blood Culture (Wb) - Anticubital Right Blood Culture - Preliminary No growth in 48 hours. 09/21/20 12:20 Mucosa - Nose SARS-CoV-2 Antigen (Rapid) - Final Laboratory Results 09/22/20 06:15: Sodium 117 L*, Potassium 3.4 L, Chloride 81 L, Carbon Dioxide 30.0, Anion Gap 6, BUN 16, Creatinine 0.59, Estim Creat Clear Calc 34.90, Est GFR (MDRD) Af Amer 126, Est GFR (MDRD) Non-Af 104, BUN/Creatinine Ratio 27.2 H, Glucose 82, Calcium 8.5 09/22/20 06:15: TSH 3.56 09/22/20 06:15: ACTH Pending 09/22/20 11:20: Serum Osmolality 245 L 09/22/20 11:20: Sodium 117 L*, Potassium 3.4 L, Chloride 83 L, Carbon Dioxide 28.0, Anion Gap 6, BUN 15, Creatinine 0.60, Estim Creat Clear Calc 34.90, Est GFR (MDRD) Af Amer 123, Est GFR (MDRD) Non-Af 102, BUN/Creatinine Ratio 25.0 H, Glucose 104, Calcium 8.5, Troponin I 0.153 H 09/22/20 12:17: Urine Osmolality 293, Ur Random Sodium 72, Urine Potassium 17.0 09/22/20 12:25: Troponin I 0.156 H 09/22/20 16:30: Troponin I 0.150 H 09/22/20 16:30: Sodium 115 L* 09/22/20 16:30: Sodium TNP, Potassium 4.0, Chloride 82 L, Carbon Dioxide 24.0, Anion Gap TNP, BUN 18, Creatinine 0.61, Estim Creat Clear Calc 34.90, Est GFR (MDRD) Af Amer 120, Est GFR (MDRD) Non-Af 99, BUN/Creatinine Ratio 29.3 H, Glucose 99, Calcium 8.5 09/22/20 22:57: Sodium 115 L*, Potassium 4.0, Chloride 81 L, Carbon Dioxide 24.0, Anion Gap 10, BUN 21 H, Creatinine 0.66, Estim Creat Clear Calc 34.90, Est GFR (MDRD) Af Amer 111, Est GFR (MDRD) Non-Af 92, BUN/Creatinine Ratio 32.0 H, Glucose 113 H, Calcium 8.6 09/23/20 05:20: Sodium 116 L*, Potassium 3.8, Chloride 81 L, Carbon Dioxide 26.0, Anion Gap 9, BUN 22 H, Creatinine 0.65, Estim Creat Clear Calc 34.90, Est GFR (MDRD) Af Amer 113, Est GFR (MDRD) Non-Af 93, BUN/Creatinine Ratio 34.0 H, Glucose 98, Calcium 8.8 09/23/20 05:20: Cortisol 17.50 Current Medications Acetaminophen (Acetaminophen 325 Mg Tablet) 650 mg PO Q6H PRN PRN PRN Reason: Pain Score 1-10/Temp > 100.7 F Last Admin: 09/22/20 15:39 Dose: 650 mg Documented by: Alprazolam (Alprazolam 0.5 Mg Tablet) 0.5 mg PO TID PRN PRN PRN Reason: ANXIETY Last Admin: 09/22/20 01:52 Dose: 0.5 mg Documented by: Amlodipine Besylate (Amlodipine 10 Mg Tablet) 10 mg PO DAILY [facility] Last Admin: 09/23/20 09:00 Dose: 10 mg Documented by: Aspirin (Aspirin E.C. 81 Mg Tablet) 81 mg PO DAILY@0800 [facility] Last Admin: 09/23/20 08:59 Dose: 81 mg Documented by: Carvedilol (Carvedilol 25 Mg Tablet) 25 mg PO BID [facility] Last Admin: 09/23/20 08:59 Dose: 25 mg Documented by: Divalproex Sodium (Divalproex Sodium 250 Mg Tablet) 500 mg PO QHS [facility] Last Admin: 09/22/20 21:00 Dose: 500 mg Documented by: Enoxaparin Sodium (Enoxaparin 40 Mg/0.4 Ml Syringe) 40 mg SC DAILY [facility] Last Admin: 09/23/20 08:59 Dose: 40 mg Documented by: Hydralazine HCl (Hydralazine 20 Mg/Ml Vial) 5 mg IV Q6H PRN PRN PRN Reason: BLOOD PRESSURE Last Admin: 09/22/20 15:38 Dose: 5 mg Documented by: Losartan Potassium (Losartan Potassium 100 Mg Tablet) 100 mg PO QHS [facility] Last Admin: 09/22/20 21:01 Dose: 100 mg Documented by: Olanzapine (Olanzapine 2.5 Mg Tablet) 2.5 mg PO DAILY [facility] Last Admin: 09/23/20 08:59 Dose: 2.5 mg Documented by: Olanzapine (Olanzapine 10 Mg Tablet) 10 mg PO QHS [facility] Last Admin: 09/22/20 21:00 Dose: 10 mg Documented by: Ondansetron HCl (Ondansetron 4 Mg/2 Ml Vial) 4 mg IV Q8H PRN PRN PRN Reason: NAUSEA/VOMITING Senna (Senna Tablet) 2 tablet PO BID [facility] Last Admin: 09/23/20 09:00 Dose: 2 tablet Documented by: Sodium Chloride (0.9% Saline Lock 10 Ml Syringe) 10 - 40 ml IV UD PRN PRN Reason: SALINE FLUSH Timolol Maleate (Timolol 0.5% 5ml Opth.Btl) 1 drop EACH EYE BID [facility] Last Admin: 09/23/20 08:59 Dose: 1 drop Documented by: Medical Necessity - Tobacco Use Smoking Status: Former smoker Tobacco Use: Cigarettes Assessment/Plan All Active Problems Acute hyponatremia (Acute) Elevated troponin (Acute) This is an 79 years old female patient presented to the emergency room because of generalized weakness, found to have severe hyponatremia and abnormal cardiac enzymes and she was admitted for evaluation and treatment. #1 hyponatremia: Unclear if it is acute or chronic. The only serum sodium level in the chart was back on January,. Admission sodium was 114, today sodium is 116. 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 Other routine blood work was unremarkable. Potassium was replaced and corrected. Currently, she is on fluid restriction to less than 800 cc daily. No evidence of seizure, mentation is at baseline. Plan to continue fluid restriction, repeat BMP tomorrow morning, keep holding HCTZ/triamterene. #2 abnormal cardiac enzymes: Troponin has been elevated, patient denied any chest pain. No acute ischemic changes on EKG. 2D echocardiogram showed ejection fraction of 55%, normal LV size and function, pulmonary artery pressure of 40. She is on aspirin, Coreg and losartan. At this time, no indication to pursue any further cardiac work-up. #3 CAD status post stents: Stable, plan as above. Continue aspirin, Coreg and losartan. #4 anxiety/bipolar disorder: Stable, continue Xanax, Depakote and Zyprexa. #5 hypertension: Blood pressure stable, continue Norvasc and Coreg as well as Rocephin. #6 DVT prophylaxis: Subcu Lovenox. This note was generated with [employer] dictation software. It may contain incorrect words, spelling, and punctuation that were not noted in checking the note before signing. Inpatient E&M: 51127 Subs Hosp L2
[2020-09-23] MEDS: Ondansetron 4 MG/2 ML Vial IV (12:25)
[2020-09-23] MEDS: 0.9% Saline Lock 10 ML Syringe IV (12:25)
--- NOTE | 2020-09-23 15:16 | CASEMGMT ---
Social Work SW spoke with therapy who states pt with significant functional debility. SW met with pt in room to discuss discharge plan. Pt stating she [facility] like to return to [facility]. SW discussed functionality with pt and pt admits she did not do well with therapy today. SW inquired about going to [facility] which was discussed yesterday with her and son. Pt somewhat open to this. Phone call to [facility] and they do not have beds available at this time. Phone call to pt son Kun and updated on pt progress with therapy and that [facility] has no beds available at this time. Kun to speak with brother and choose other facilities if pt is unable to return to [facility]. FLORIDALMA Bland
[2020-09-23] MEDS: OLANZapine 10 MG Tablet PO (21:25)
[2020-09-23] MEDS: Divalproex Sodium 250 MG Tablet 500 MG PO (21:26)
[2020-09-23] MEDS: Losartan Potassium 100 MG Tablet PO (21:26)
[2020-09-24] VITALS (14 sets, daily range): BP systolic 119–146; BP diastolic 50–77; PULSE 49–78; RESP 16–18; TEMP 36.6–36.9; O2SAT 92–98
[2020-09-24 06:37] LABS: Anion Gap 7 (5-15); BUN 28 mg/dL (7-18); BUN/Creat Ratio 30.8 RATIO (10-20); Chloride 86 mmol/L (98-107); Creatinine, Serum 0.91 mg/dL (0.55-1.02); EST Glomerular Filtration Rate 63 mL/min (>60); Est Glom Filt Rate - Afr Amer 76 mL/min (>60); Estimated Creatinine Clearance 38.35 ml/min; Glucose 94 mg/dL (74-106); Potassium 4.3 mmol/L (3.5-5.1); Sodium Level 120 mmol/L (136-145)
--- NOTE | 2020-09-24 08:03 | PN_ITS ---
Patient Problems: Active and Suspected Problems Acute hyponatremia (Acute) Elevated troponin (Acute) Subjective: Chief complaint: Follow-up after admission for hyponatremia and abnormal cardiac enzymes. Patient seen and examined. No acute events overnight. Today, she is feeling better but complains of some nausea. No other complaints. Her vital signs are stable. - Physical Exam Vitals/I&O's: Vital Signs Temp Pulse Resp BP Pulse Ox 97.8 F 67 18 146/61 H 92 09/24/20 03:10 09/24/20 03:11 09/24/20 03:10 09/24/20 03:10 09/24/20 03:11 Oxygen Delivery Method Room Air Weight: 149 lb 3.201 oz Body Mass Index (BMI) 27.3 Intake and Output for Last 24 Hours 09/22/20 09/23/20 09/24/20 23:59 23:59 23:59 Intake Total 2650 / 2650 550 / 700 150 / 150 Output Total 675 / 675 350 / 1175 825 / 825 Balance 1974 / 1974 200 / -475 -675 / -675 General: Alert, Cooperative, No apparent distress, Well developed HEENT: Atraumatic, PERRLA, EOMI, Normocephalic Oral: Moist Mucosa, No Gingival or Mucosal Lesions/ Ulcerations Neck: Supple, No JVD, Negative Carotid Bruits, Trachea Midline, Thyroid Normal Size and Texture Lungs: Clear to auscultation, No rhonchi, No wheeze, No rales, Diminished Cardiovascular: Regular rate, Regular Rhythm, Normal S1, Normal S2, PMI Normal Abdomen: Bowel Sounds Present, Soft, Non Tender, Non-Distended, No Hepato- splenomegaly Extremities: No clubbing, No cyanosis, Edema Skin: No rashes, No breakdown Lymphatic: No Cervical, Supraclavicular, or Inguinal Adenopathy Neurological: Cranial nerves II-XII grossly intact, Neuro grossly intact Psych/Mental Status: Normal Affect, Appropriate Microbiology Past 72 Hours 09/21/20 13:35 Blood Culture (Wb) - Left Hand Blood Culture - Preliminary No growth in 48 hours. 09/21/20 12:23 Blood Culture (Wb) - Anticubital Right Blood Culture - Preliminary No growth in 48 hours. 09/21/20 12:20 Mucosa - Nose SARS-CoV-2 Antigen (Rapid) - Final Laboratory Results 09/23/20 05:20: Cortisol 17.50 09/24/20 05:52: Sodium 120 L, Potassium 4.3, Chloride 86 L, Carbon Dioxide 27.0, Anion Gap 7, BUN 28 H, Creatinine 0.91, Estim Creat Clear Calc 38.35, Est GFR (MDRD) Af Amer 76, Est GFR (MDRD) Non-Af 63, BUN/Creatinine Ratio 30.8 H, Glucose 94, Calcium 9.0 Current Medications Acetaminophen (Acetaminophen 325 Mg Tablet) 650 mg PO Q6H PRN PRN PRN Reason: Pain Score 1-10/Temp > 100.7 F Last Admin: 09/22/20 15:39 Dose: 650 mg Documented by: Alprazolam (Alprazolam 0.5 Mg Tablet) 0.5 mg PO TID PRN PRN PRN Reason: ANXIETY Last Admin: 09/22/20 01:52 Dose: 0.5 mg Documented by: Amlodipine Besylate (Amlodipine 10 Mg Tablet) 10 mg PO DAILY [facility] Last Admin: 09/23/20 09:00 Dose: 10 mg Documented by: Aspirin (Aspirin E.C. 81 Mg Tablet) 81 mg PO DAILY@0800 [facility] Last Admin: 09/23/20 08:59 Dose: 81 mg Documented by: Carvedilol (Carvedilol 25 Mg Tablet) 25 mg PO BID [facility] Last Admin: 09/23/20 21:25 Dose: 25 mg Documented by: Divalproex Sodium (Divalproex Sodium 250 Mg Tablet) 500 mg PO QHS [facility] Last Admin: 09/23/20 21:26 Dose: 500 mg Documented by: Enoxaparin Sodium (Enoxaparin 40 Mg/0.4 Ml Syringe) 40 mg SC DAILY [facility] Last Admin: 09/23/20 08:59 Dose: 40 mg Documented by: Hydralazine HCl (Hydralazine 20 Mg/Ml Vial) 5 mg IV Q6H PRN PRN PRN Reason: BLOOD PRESSURE Last Admin: 09/22/20 15:38 Dose: 5 mg Documented by: Losartan Potassium (Losartan Potassium 100 Mg Tablet) 100 mg PO QHS [facility] Last Admin: 09/23/20 21:26 Dose: 100 mg Documented by: Olanzapine (Olanzapine 2.5 Mg Tablet) 2.5 mg PO DAILY [facility] Last Admin: 09/23/20 08:59 Dose: 2.5 mg Documented by: Olanzapine (Olanzapine 10 Mg Tablet) 10 mg PO QHS [facility] Last Admin: 09/23/20 21:25 Dose: 10 mg Documented by: Ondansetron HCl (Ondansetron 4 Mg/2 Ml Vial) 4 mg IV Q8H PRN PRN PRN Reason: NAUSEA/VOMITING Last Admin: 09/23/20 12:25 Dose: 4 mg Documented by: Senna (Senna Tablet) 2 tablet PO BID [facility] Last Admin: 09/23/20 21:25 Dose: 2 tablet Documented by: Sodium Chloride (0.9% Saline Lock 10 Ml Syringe) 10 - 40 ml IV UD PRN PRN Reason: SALINE FLUSH Last Admin: 09/23/20 12:25 Dose: 10 ml Documented by: Timolol Maleate (Timolol 0.5% 5ml Opth.Btl) 1 drop EACH EYE BID [facility] Last Admin: 09/23/20 21:25 Dose: 1 drop Documented by: Medical Necessity - Tobacco Use Smoking Status: Former smoker Tobacco Use: Cigarettes Assessment/Plan All Active Problems Acute hyponatremia (Acute) Elevated troponin (Acute) This is an 79 years old female patient presented to the emergency room because of generalized weakness, found to have severe hyponatremia and abnormal cardiac enzymes and she was admitted for evaluation and treatment. 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 She has been on fluid restrictions. Today sodium is improving, it is 120. Potassium was replaced and corrected. No evidence of seizure, mentation is at baseline. COVID-19 antigen was negative. Blood culture showed no growth in 48 hours. Plan to continue f luid restriction, repeat BMP tomorrow morning, probable DC back to half-way tomorrow. #2 abnormal cardiac enzymes: Troponin has been elevated, patient denied any chest pain. No acute ischemic changes on EKG. 2D echocardiogram showed ejection fraction of 55%, normal LV size and function, pulmonary artery pressure of 40. She is on aspirin, Coreg and losartan. At this time, no indication to pursue any further cardiac work-up. #3 CAD status post stents: Stable, plan as above. Continue aspirin, Coreg and losartan. #4 anxiety/bipolar disorder: Stable, continue Xanax, Depakote and Zyprexa. #5 hypertension: Blood pressure stable, continue Norvasc and Coreg as well as Rocephin. #6 DVT prophylaxis: Subcu Lovenox. This note was generated with [employer] dictation software. It may contain incorrect words, spelling, and punctuation that were not noted in checking the note before signing. Inpatient E&M: 74411 Subs Hosp L2
[2020-09-24] MEDS: Carvedilol 25 MG Tablet PO ×2 (09:00→22:13)
[2020-09-24] MEDS: Aspirin E.C. 81 MG Tablet PO (09:00)
[2020-09-24] MEDS: Senna Tablet 2 TABLET PO ×2 (09:00→22:13)
[2020-09-24] MEDS: OLANZapine 2.5 MG Tablet PO (09:00)
[2020-09-24] MEDS: amLODIPine 10 MG Tablet PO (09:00)
[2020-09-24] MEDS: Timolol 0.5% 5ML OPTH.BTL 1 DRP EACH EYE ×2 (09:00→22:18)
[2020-09-24] MEDS: Enoxaparin 40 MG/0.4 ML Syringe SC (09:01)
[2020-09-24] MEDS: 0.9% Saline Lock 10 ML Syringe IV (09:04)
[2020-09-24] MEDS: Ondansetron 4 MG/2 ML Vial IV (09:04)
--- NOTE | 2020-09-24 12:22 | CASEMGMT ---
Social Work SW reviewed therapy notes and pt functional ability. Phone call to Kristine at [facility] and discussed pt care needs. Kristine feels she is not able to provide adequate care for pt at this time as she is the only caregiver at the [facility] and pt is requiring assist of 2. If pt would go to SNF for short time for rehab, Kristine is hopeful that pt would be able to return to [facility] at that time. SW met with pt and son Kun in room and introduced self and role of SW. SW discussed functional ability with therapy and conversation with Kristine at [facility]. Pt and Kun are understanding that pt cannot return to [facility] at this time. SW provided a list of SNF providers including quality and resource use data and consistent with the patient preferred geographic region, medical needs and insurance network. The patient's and son's preferred provider is [facility]. SW placed call to [facility] in TCU and they are able to accept pt and would have a bed available on Sunday. Son and pt made aware and are agreeable to discharge plan. Kristine at [facility] updated. Plan: TCU, Bed available on Sunday FLORIDALMA Bland
[2020-09-24] MEDS: ALPRAZolam 0.5 MG Tablet PO (14:28)
[2020-09-24] MEDS: Acetaminophen 325 MG Tablet 650 MG PO (14:28)
[2020-09-24 16:47] LABS: Adrenocorticotropic Hormone 40.6 pg/mL (7.2-63.3)
[2020-09-24] MEDS: Losartan Potassium 100 MG Tablet PO (22:18)
[2020-09-24] MEDS: Divalproex Sodium 250 MG Tablet 500 MG PO (22:18)
[2020-09-25] VITALS (10 sets, daily range): BP systolic 134–139; BP diastolic 44–67; PULSE 56–77; RESP 14–18; TEMP 36.5–36.7; O2SAT 93–94
[2020-09-25 06:21] LABS: Anion Gap 6 (5-15); BUN 33 mg/dL (7-18); BUN/Creat Ratio 33.7 RATIO (10-20); Calcium,Total 9.2 mg/dL (8.5-10.1); Chloride 89 mmol/L (98-107); Creatinine, Serum 0.98 mg/dL (0.55-1.02); EST Glomerular Filtration Rate 58 mL/min (>60); Est Glom Filt Rate - Afr Amer 70 mL/min (>60); Estimated Creatinine Clearance 35.61 ml/min; Glucose 100 mg/dL (74-106); Potassium 4.4 mmol/L (3.5-5.1); Sodium Level 124 mmol/L (136-145)
--- NOTE | 2020-09-25 08:01 | PCM.PROGNOTE ---
Patient Problems: Active and Suspected Problems Acute hyponatremia (Acute) Elevated troponin (Acute) Subjective: Chief complaint: Follow-up after admission for severe hyponatremia and abnormal cardiac enzymes. Patient seen and examined. No acute events overnight. This morning, she is on oxygen of up to 3 L, nursing staff reported that her pulse ox was in the around 85%. Patient denied the significant shortness of breath. It could be due to atelectasis. She has been afebrile, other vital signs are stable. - Physical Exam Vitals/I&O's: Vital Signs Temp Pulse Resp BP Pulse Ox 97.9 F 71 14 134/44 H 93 09/25/20 02:35 09/25/20 03:01 09/25/20 02:35 09/25/20 02:35 09/25/20 02:35 Oxygen Flow Rate (L/min) 2 Oxygen Delivery Method Nasal Cannula Weight: 149 lb 3.201 oz Body Mass Index (BMI) 27.3 Intake and Output for Last 24 Hours 09/23/20 09/24/20 09/25/20 23:59 23:59 23:59 Intake Total 550 / 700 840 / 940 100 / 100 Output Total 350 / 1175 3625 / 3825 200 / 200 Balance 200 / -475 -2785 / -2885 -100 / -100 General: Alert, Cooperative, No apparent distress, Well developed HEENT: Atraumatic, PERRLA, EOMI, Normocephalic Oral: Moist Mucosa, No Gingival or Mucosal Lesions/ Ulcerations Neck: Supple, No JVD, Negative Carotid Bruits, Trachea Midline, Thyroid Normal Size and Texture Lungs: Clear to auscultation, No rhonchi, No wheeze, No rales, Diminished Cardiovascular: Regular rate, Regular Rhythm, Normal S1, Normal S2, PMI Normal Abdomen: Bowel Sounds Present, Soft, Non Tender, Non-Distended, No Hepato-splenomegaly Extremities: No clubbing, No cyanosis, Edema Skin: No rashes, No breakdown Lymphatic: No Cervical, Supraclavicular, or Inguinal Adenopathy Neurological: Cranial nerves II-XII grossly intact, Neuro grossly intact Psych/Mental Status: Normal Affect, Appropriate Microbiology Past 72 Hours 09/21/20 13:35 Blood Culture (Wb) - Left Hand Blood Culture - Preliminary No growth in 48 hours. 09/21/20 12:23 Blood Culture (Wb) - Anticubital Right Blood Culture - Preliminary No growth in 48 hours. Laboratory Results 09/22/20 06:15: ACTH 40.6 09/25/20 05:20: Sodium 124 L, Potassium 4.4, Chloride 89 L, Carbon Dioxide 29.0, Anion Gap 6, BUN 33 H, Creatinine 0.98, Estim Creat Clear Calc 35.61, Est GFR (MDRD) Af Amer 70, Est GFR (MDRD) Non-Af 58 L, BUN/Creatinine Ratio 33.7 H, Glucose 100, Calcium 9.2 Current Medications Acetaminophen (Acetaminophen 325 Mg Tablet) 650 mg PO Q6H PRN PRN PRN Reason: Pain Score 1-10/Temp > 100.7 F Last Admin: 09/24/20 14:28 Dose: 650 mg Documented by: Alprazolam (Alprazolam 0.5 Mg Tablet) 0.5 mg PO TID PRN PRN PRN Reason: ANXIETY Last Admin: 09/24/20 14:28 Dose: 0.5 mg Documented by: Amlodipine Besylate (Amlodipine 10 Mg Tablet) 10 mg PO DAILY [facility] Last Admin: 09/24/20 09:00 Dose: 10 mg Documented by: Aspirin (Aspirin E.C. 81 Mg Tablet) 81 mg PO DAILY@0800 [facility] Last Admin: 09/24/20 09:00 Dose: 81 mg Documented by: Carvedilol (Carvedilol 25 Mg Tablet) 25 mg PO BID [facility] Last Admin: 09/24/20 22:13 Dose: 25 mg Documented by: Divalproex Sodium (Divalproex Sodium 250 Mg Tablet) 500 mg PO QHS [facility] Last Admin: 09/24/20 22:18 Dose: 500 mg Documented by: Enoxaparin Sodium (Enoxaparin 40 Mg/0.4 Ml Syringe) 40 mg SC DAILY [facility] Last Admin: 09/24/20 09:01 Dose: 40 mg Documented by: Hydralazine HCl (Hydralazine 20 Mg/Ml Vial) 5 mg IV Q6H PRN PRN PRN Reason: BLOOD PRESSURE Last Admin: 09/22/20 15:38 Dose: 5 mg Documented by: Losartan Potassium (Losartan Potassium 100 Mg Tablet) 100 mg PO QHS [facility] Last Admin: 09/24/20 22:18 Dose: 100 mg Documented by: Olanzapine (Olanzapine 2.5 Mg Tablet) 2.5 mg PO DAILY [facility] Last Admin: 09/24/20 09:00 Dose: 2.5 mg Documented by: Olanzapine (Olanzapine 10 Mg Tablet) 10 mg PO QHS [facility] Last Admin: 09/25/20 01:21 Dose: Not Given Documented by: Ondansetron HCl (Ondansetron 4 Mg/2 Ml Vial) 4 mg IV Q8H PRN PRN PRN Reason: NAUSEA/VOMITING Last Admin: 09/24/20 09:04 Dose: 4 mg Documented by: Senna (Senna Tablet) 2 tablet PO BID [facility] Last Admin: 09/24/20 22:13 Dose: 2 tablet Documented by: Sodium Chloride (0.9% Saline Lock 10 Ml Syringe) 10 - 40 ml IV UD PRN PRN Reason: SALINE FLUSH Last Admin: 09/24/20 09:04 Dose: 10 ml Documented by: Timolol Maleate (Timolol 0.5% 5ml Opth.Btl) 1 drop EACH EYE BID [facility] Last Admin: 09/24/20 22:18 Dose: 1 drop Documented by: Medical Necessity - Tobacco Use Smoking Status: Former smoker Tobacco Use: Cigarettes Assessment/Plan All Active Problems Acute hyponatremia (Acute) Elevated troponin (Acute) This is an 79 years old female patient presented to the emergency room because of generalized weakness, found to have severe hyponatremia and abnormal cardiac enzymes and she was admitted for evaluation and treatment. #1 hyponatremia: Sodium is getting better with further restriction, it is up to 124 today. 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 Potassium was replaced and corrected. No evidence of seizure, mentation is at baseline. COVID-19 antigen was negative. Blood culture showed no growth in 48 hours. Plan to continue fluid restriction, ambulate, encourage incentive spirometer, wean off oxygen as tolerated, repeat BMP tomorrow morning, patient will need placement to assisted facility. #2 abnormal cardiac enzymes: Troponin has been elevated, patient denied any chest pain. No acute ischemic changes on EKG. 2D echocardiogram showed ejection fraction of 55%, normal LV size and function, pulmonary artery pressure of 40. She is on aspirin, Coreg and losartan. At this time, no indication to pursue any further cardiac work-up. #3 CAD status post stents: Stable, plan as above. Continue aspirin, Coreg and losartan. #4 anxiety/bipolar disorder: Stable, continue Xanax, Depakote and Zyprexa. #5 hypertension: Blood pressure stable, continue Norvasc and Coreg as well as Rocephin. #6 DVT prophylaxis: Subcu Lovenox. This note was generated with [email or web address] dictation software. It may contain incorrect words, spelling, and punctuation that were not noted in checking the note before signing. Inpatient E&M: 52160 Subs Hosp L2
[2020-09-25] MEDS: OLANZapine 2.5 MG Tablet PO (08:53)
[2020-09-25] MEDS: Timolol 0.5% 5ML OPTH.BTL 1 DRP EACH EYE ×2 (08:53→20:29)
[2020-09-25] MEDS: Carvedilol 25 MG Tablet PO ×2 (08:53→20:29)
[2020-09-25] MEDS: Aspirin E.C. 81 MG Tablet PO (08:53)
[2020-09-25] MEDS: Senna Tablet 2 TABLET PO ×2 (08:54→20:29)
[2020-09-25] MEDS: amLODIPine 10 MG Tablet PO (08:54)
[2020-09-25] MEDS: Enoxaparin 40 MG/0.4 ML Syringe SC (08:54)
[2020-09-25] MEDS: Divalproex Sodium 250 MG Tablet 500 MG PO (20:29)
[2020-09-25] MEDS: OLANZapine 10 MG Tablet PO (20:29)
[2020-09-25] MEDS: ALPRAZolam 0.5 MG Tablet PO (20:29)
[2020-09-25] MEDS: Acetaminophen 325 MG Tablet 650 MG PO (20:29)
[2020-09-25] MEDS: Losartan Potassium 100 MG Tablet PO (20:29)
--- NOTE | 2020-09-25 20:34 | NURSING ---
Pt requested her meds early and pt nervous at this time. meds given with xanax
[2020-09-26] VITALS (9 sets, daily range): BP systolic 110–136; BP diastolic 39–87; PULSE 55–75; RESP 17–18; TEMP 35.9–36.7; O2SAT 92–97
[2020-09-26 06:22] LABS: Anion Gap 6 (5-15); BUN 42 mg/dL (7-18); Calcium,Total 8.8 mg/dL (8.5-10.1); Chloride 89 mmol/L (98-107); EST Glomerular Filtration Rate 56 mL/min (>60); Est Glom Filt Rate - Afr Amer 68 mL/min (>60); Glucose 87 mg/dL (74-106); Potassium 4.6 mmol/L (3.5-5.1); Sodium Level 124 mmol/L (136-145)
--- NOTE | 2020-09-26 07:15 | RAD_ITS ---
STUDY: X-RAY CHEST REASON FOR EXAM: Female, 79 years old. hypoxia TECHNIQUE: Single AP portable view of the chest. COMPARISON: 09/21/2020 FINDINGS: No change in the alveolar opacity in the lower left lung consistent with left lower lobe pneumonia. There is no demonstrated pleural abnormality. There is moderate cardiac enlargement. Normal mediastinum and daniel. Normal visualized pulmonary arteries. Normal visualized aortic arch and descending thoracic aorta. Normal visualized thoracic spine. Normal visualized ribs, clavicles, and shoulders. There is no demonstrated abnormality of the visualized soft tissue structures of the upper abdomen. RAD/Chest 1 View (Portable) IMPRESSION: No change from 09/21/2020. Electronically Signed: Todd Bains MD at 7:44 EST Tel , Service support ,
[2020-09-26 07:16] LABS: Absolute Lymphocyte Count 1.62 X10^3/uL (0.83-4.51); Absolute Neutrophil Count 6.1 X10^3/uL (2.0-7.7); Basophil# 0.05 X10^3/uL; Basophil% 0.6 % (0-1); Eosinophil# 0.08 X10^3/uL; Eosinophils% 0.9 % (0-5); Hematocrit 32.8 % (37-47); Hemoglobin 10.9 g/dL (12.0-15.0); Lymphocyte # 1.62 X10^3/ul (4.0); Lymphocyte % 17.8 % (19-41); Mean Corp Hgb Conc 33.2 g/dL (32-36); Mean Corpuscular Hgb 32.7 pg (27.0-32.0); Mean Corpuscular Volume 98.5 fL (81-99); Mean Platelet Vol. 9.9 fl (6.2-12.0); Monocyte# 1.22 X10^3/uL; Monocyte% 13.4 % (0-10); NRBC Flagged by Analyzer 0 % (0-5); Neutrophil # 6.09 X10^3/uL (2.7-7.7); Platelet Count 201 K/mm3 (150-450); RBC Distribution Width CV 13.3 % (11.6-14.6); RBC Distribution Width SD 48.2 fl (35.1-43.9); Red Blood Count 3.33 M/mm3 (4.2-5.4); White Blood Count 9.1 K/mm3 (4.4-11.0)
--- NOTE | 2020-09-26 08:07 | PN_ITS ---
Patient Problems: Active and Suspected Problems Acute hyponatremia (Acute) Elevated troponin (Acute) Subjective: Chief complaint: Follow-up after admission for severe hyponatremia and abnormal cardiac enzymes, developed hypoxia with cough and she was found to have new left lower lobe consolidation consistent with pneumonia. Patient seen and examined. No acute events overnight. Nursing staff reports that she has been requiring more oxygen and she has been coughing up dark yellow sputum. She has been afebrile, remains on 3 L of oxygen, other vital signs are stable. - Physical Exam Vitals/I&O's: Vital Signs Temp Pulse Resp BP Pulse Ox 98.1 F 57 L 17 117/39 L 94 09/26/20 02:55 09/26/20 07:00 09/26/20 02:55 09/26/20 02:55 09/26/20 02:55 Oxygen Flow Rate (L/min) 3 Oxygen Delivery Method Nasal Cannula Weight: 149 lb 3.201 oz Body Mass Index (BMI) 27.3 Intake and Output for Last 24 Hours 09/24/20 09/25/20 09/26/20 23:59 23:59 23:59 Intake Total 840 / 940 940 / 940 0 / 0 Output Total 3625 / 3825 1350 / 1350 50 / 50 Balance -2785 / -2885 -410 / -410 -50 / -50 General: Alert, Cooperative, No apparent distress, Well developed HEENT: Atraumatic, PERRLA, EOMI, Normocephalic Oral: Moist Mucosa, No Gingival or Mucosal Lesions/ Ulcerations Neck: Supple, No JVD, Negative Carotid Bruits, Trachea Midline, Thyroid Normal Size and Texture Lungs: No wheeze, No rales, Diminished, Rhonchi, - - Decreased breath sounds bilateral more on the left base, scattered rhonchi. Cardiovascular: Regular rate, Regular Rhythm, Normal S1, Normal S2, PMI Normal Abdomen: Bowel Sounds Present, Soft, Non Tender, Non-Distended, No Hepato- splenomegaly Extremities: No clubbing, No cyanosis, No edema Skin: No rashes, No breakdown Lymphatic: No Cervical, Supraclavicular, or Inguinal Adenopathy Neurological: Cranial nerves II-XII grossly intact, Motor Exam 5/5 strength throughout Psych/Mental Status: Appropriate, Flat Affect Microbiology Past 72 Hours 09/21/20 13:35 Blood Culture (Wb) - Left Hand Blood Culture - Preliminary No growth in 48 hours. 09/21/20 12:23 Blood Culture (Wb) - Anticubital Right Blood Culture - Preliminary No growth in 48 hours. Laboratory Results 09/26/20 05:40: Sodium 124 L, Potassium 4.6, Chloride 89 L, Carbon Dioxide 29.0, Anion Gap 6, BUN 42 H, Creatinine 1.00, Estim Creat Clear Calc 34.90, Est GFR (MDRD) Af Amer 68, Est GFR (MDRD) Non-Af 56 L, BUN/Creatinine Ratio 42.0 H, Glucose 87, Calcium 8.8 09/26/20 05:40: WBC 9.1, RBC 3.33 L, Hgb 10.9 L, Hct 32.8 L, MCV 98.5 D, MCH 32.7 H, MCHC 33.2 D, RDW Std Deviation 48.2 H, RDW Coeff of Pelon 13.3, Plt Count 201, MPV 9.9, Immature Gran % (Auto) 0.300, Neut % (Auto) 67.0, Lymph % (Auto) 17.8 L, [place] % (Auto) 13.4 H, Eos % (Auto) 0.9, Baso % (Auto) 0.6, Absolute Neuts (auto) 6.1, Absolute Lymphs (auto) 1.62, Nucleated RBC % 0 Clinical Impression(s) from Imaging Studies Chest X-Ray 09/26/20 07:15 IMPRESSION: No change from 09/21/2020. Electronically Signed: Todd Bains MD at 7:44 EST Tel , Service support , Current Medications Acetaminophen (Acetaminophen 325 Mg Tablet) 650 mg PO Q6H PRN PRN PRN Reason: Pain Score 1-10/Temp > 100.7 F Last Admin: 09/25/20 20:29 Dose: 650 mg Documented by: Alprazolam (Alprazolam 0.5 Mg Tablet) 0.5 mg PO TID PRN PRN PRN Reason: ANXIETY Last Admin: 09/25/20 20:29 Dose: 0.5 mg Documented by: Amlodipine Besylate (Amlodipine 10 Mg Tablet) 10 mg PO DAILY [facility] Last Admin: 09/25/20 08:54 Dose: 10 mg Documented by: Aspirin (Aspirin E.C. 81 Mg Tablet) 81 mg PO DAILY@0800 [facility] Last Admin: 09/25/20 08:53 Dose: 81 mg Documented by: Carvedilol (Carvedilol 25 Mg Tablet) 25 mg PO BID [facility] Last Admin: 09/25/20 20:29 Dose: 25 mg Documented by: Divalproex Sodium (Divalproex Sodium 250 Mg Tablet) 500 mg PO QHS [facility] Last Admin: 09/25/20 20:29 Dose: 500 mg Documented by: Enoxaparin Sodium (Enoxaparin 40 Mg/0.4 Ml Syringe) 40 mg SC DAILY [facility] Last Admin: 09/25/20 08:54 Dose: 40 mg Documented by: Hydralazine HCl (Hydralazine 20 Mg/Ml Vial) 5 mg IV Q6H PRN PRN PRN Reason: BLOOD PRESSURE Last Admin: 09/22/20 15:38 Dose: 5 mg Documented by: Piperacillin Sod/Tazobactam (Sod 3.375 gm/ Sodium Chloride) 50 mls @ 12.5 mls/hr IV Q8 [facility] Losartan Potassium (Losartan Potassium 100 Mg Tablet) 100 mg PO QHS [facility] Last Admin: 09/25/20 20:29 Dose: 100 mg Documented by: Olanzapine (Olanzapine 2.5 Mg Tablet) 2.5 mg PO DAILY [facility] Last Admin: 09/25/20 08:53 Dose: 2.5 mg Documented by: Olanzapine (Olanzapine 10 Mg Tablet) 10 mg PO QHS [facility] Last Admin: 09/25/20 20:29 Dose: 10 mg Documented by: Ondansetron HCl (Ondansetron 4 Mg/2 Ml Vial) 4 mg IV Q8H PRN PRN PRN Reason: NAUSEA/VOMITING Last Admin: 09/24/20 09:04 Dose: 4 mg Documented by: Senna (Senna Tablet) 2 tablet PO BID [facility] Last Admin: 09/25/20 20:29 Dose: 2 tablet Documented by: Sodium Chloride (0.9% Saline Lock 10 Ml Syringe) 10 - 40 ml IV UD PRN PRN Reason: SALINE FLUSH Last Admin: 09/24/20 09:04 Dose: 10 ml Documented by: Timolol Maleate (Timolol 0.5% 5ml Opth.Btl) 1 drop EACH EYE BID [facility] Last Admin: 09/25/20 20:29 Dose: 1 drop Documented by: Medical Necessity - Tobacco Use Smoking Status: Former smoker Tobacco Use: Cigarettes Assessment/Plan All Active Problems Acute hyponatremia (Acute) Elevated troponin (Acute) This is an 79 years old female patient presented to the emergency room because of generalized weakness, found to have severe hyponatremia and abnormal cardiac enzymes, developed hypoxia and productive cough and she was found to have new left lower lobe consolidation consistent with pneumonia. #1 hyponatremia: She has been on fluid restriction, today sodium is 124, remaining same as yesterday. 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 Potassium was replaced and corrected. No evidence of seizure, mentation is at baseline. COVID-19 antigen was negative. Blood culture showed no growth in 48 hours. Plan to continue same treatment, repeat BMP tomorrow morning. #2 left lower lobe healthcare associated pneumonia: Developed after admission. On admission, chest x-ray did not show obvious infiltrate but repeat chest x-ray showed left lower lobe consolidation. Patient has been requiring more oxygen and complaint of productive cough. She has been afebrile, no leukocytosis. Plan: Start IV Zosyn and vancomycin for healthcare associated pneumonia, encou rage incentive spirometer, repeat CBC and BMP tomorrow morning. #3 abnormal cardiac enzymes: Troponin has been elevated, patient denied any chest pain. No acute ischemic changes on EKG. 2D echocardiogram showed ejection fraction of 55%, normal LV size and function, pulmonary artery pressure of 40. She is on aspirin, Coreg and losartan. At this time, no indication to pursue any further cardiac work-up. #4 CAD status post stents: Stable, plan as above. Continue aspirin, Coreg and losartan. #5 anxiety/bipolar disorder: Stable, continue Xanax, Depakote and Zyprexa. #6 hypertension: Blood pressure stable, continue Norvasc and Coreg as well as Rocephin. #7 DVT prophylaxis: Subcu Lovenox. This note was generated with [employer] dictation software. It may contain incorrect words, spelling, and punctuation that were not noted in checking the note before signing. Inpatient E&M: 15984 [facility] Hosp L3
[2020-09-26] MEDS: Aspirin E.C. 81 MG Tablet PO (08:44)
[2020-09-26] MEDS: Enoxaparin 40 MG/0.4 ML Syringe SC (08:44)
[2020-09-26] MEDS: Losartan Potassium 100 MG Tablet PO (08:44)
[2020-09-26] MEDS: OLANZapine 2.5 MG Tablet PO (08:44)
[2020-09-26] MEDS: amLODIPine 10 MG Tablet PO (08:45)
[2020-09-26] MEDS: Timolol 0.5% 5ML OPTH.BTL 1 DRP EACH EYE ×2 (08:45→21:06)
[2020-09-26] MEDS: Senna Tablet 2 TABLET PO ×2 (08:45→21:06)
[2020-09-26] MEDS: Carvedilol 25 MG Tablet PO ×2 (09:29→21:06)
--- NOTE | 2020-09-26 11:28 | PCM.RX.CS ---
Consult Pharmacy has been consulted to manage selected antiobiotic: Vancomycin Type of Consult: New start Suspected Infection: Pneumonia Labs: Sodium 124 mmol/L (136-145) L 09/26/20 05:40 Potassium 4.6 mmol/L (3.5-5.1) 09/26/20 05:40 Chloride 89 mmol/L (98-107) L 09/26/20 05:40 Carbon Dioxide 29.0 mmol/L (21.0-32.0) 09/26/20 05:40 Anion Gap 6 (5-15) 09/26/20 05:40 BUN 42 mg/dL (7-18) H 09/26/20 05:40 Creatinine 1.00 mg/dL (0.55-1.02) 09/26/20 05:40 Est GFR (MDRD) Af Amer 68 mL/min (>60) 09/26/20 05:40 Est GFR (MDRD) Non-Af 56 mL/min (>60) L 09/26/20 05:40 BUN/Creatinine Ratio 42.0 RATIO (10-20) H 09/26/20 05:40 Glucose 87 mg/dL (74-106) 09/26/20 05:40 Microbiology: Microbiology 09/21/20 13:35 Blood Culture (Wb) - Left Hand Blood Culture - Preliminary No growth in 48 hours. 09/21/20 12:23 Blood Culture (Wb) - Anticubital Right Blood Culture - Preliminary No growth in 48 hours. 09/21/20 12:20 Mucosa - Nose SARS-CoV-2 Antigen (Rapid) - Final Goal Trough: 15-20 mcg/mL Pharmacy Plan for Drug Dosing: NEW START IV VANCOMYCIN Consulting Physician: Dr. Resendiz Indication: Pneumonia Goal Trough: 15-20 SrCr: 1 CrCl: 35 ml/min Comments: Loading dose of 1750mg IV x1 ordered and administered 09/26 @1012 Vancomcyin Dose: 1000mg IV Q24hr to start 09/27/20 @1000 Pending Level: 09/28/20 @0930 prior to 4th total dose per protocol Pharmacy Service will continue to monitor and adjust dosing as required.
[2020-09-26] MEDS: ALPRAZolam 0.5 MG Tablet PO ×2 (13:55→21:06)
[2020-09-26] MEDS: 0.9% Saline Lock 10 ML Syringe IV (21:04)
[2020-09-26] MEDS: OLANZapine 10 MG Tablet PO (21:06)
[2020-09-26] MEDS: Divalproex Sodium 250 MG Tablet 500 MG PO (21:06)
[2020-09-27] VITALS (9 sets, daily range): BP systolic 128–144; BP diastolic 53–76; PULSE 52–66; RESP 16–18; TEMP 36.3–36.5; O2SAT 92–96
[2020-09-27 05:25] LABS: Absolute Lymphocyte Count 1.09 X10^3/uL (0.83-4.51); Absolute Neutrophil Count 5.1 X10^3/uL (2.0-7.7); Basophil# 0.05 X10^3/uL; Basophil% 0.7 % (0-1); Eosinophil# 0.16 X10^3/uL; Eosinophils% 2.2 % (0-5); Hematocrit 32.9 % (37-47); Hemoglobin 10.7 g/dL (12.0-15.0); Lymphocyte # 1.09 X10^3/ul (4.0); Lymphocyte % 14.9 % (19-41); Mean Corp Hgb Conc 32.5 g/dL (32-36); Mean Corpuscular Hgb 32.3 pg (27.0-32.0); Mean Corpuscular Volume 99.4 fL (81-99); Mean Platelet Vol. 9.6 fl (6.2-12.0); Monocyte# 0.87 X10^3/uL; Monocyte% 11.9 % (0-10); NRBC Flagged by Analyzer 0 % (0-5); Neutrophil # 5.13 X10^3/uL (2.7-7.7); Neutrophil % 69.9 % (47-70); Platelet Count 202 K/mm3 (150-450); RBC Distribution Width CV 13.3 % (11.6-14.6); RBC Distribution Width SD 48.9 fl (35.1-43.9); Red Blood Count 3.31 M/mm3 (4.2-5.4); White Blood Count 7.3 K/mm3 (4.4-11.0)
[2020-09-27 05:46] LABS: Anion Gap 4 (5-15); BUN 44 mg/dL (7-18); BUN/Creat Ratio 48.2 RATIO (10-20); Chloride 93 mmol/L (98-107); Creatinine, Serum 0.91 mg/dL (0.55-1.02); EST Glomerular Filtration Rate 63 mL/min (>60); Est Glom Filt Rate - Afr Amer 76 mL/min (>60); Estimated Creatinine Clearance 38.35 ml/min; Glucose 86 mg/dL (74-106); Potassium 4.4 mmol/L (3.5-5.1); Sodium Level 127 mmol/L (136-145)
[2020-09-27] MEDS: Aspirin E.C. 81 MG Tablet PO (09:14)
[2020-09-27] MEDS: Enoxaparin 40 MG/0.4 ML Syringe SC (09:14)
[2020-09-27] MEDS: Senna Tablet 2 TABLET PO ×2 (09:14→20:36)
[2020-09-27] MEDS: amLODIPine 10 MG Tablet PO (09:14)
[2020-09-27] MEDS: OLANZapine 2.5 MG Tablet PO (09:14)
[2020-09-27] MEDS: Timolol 0.5% 5ML OPTH.BTL 1 DRP EACH EYE ×2 (09:14→20:34)
[2020-09-27] MEDS: Vancomycin IV 1,000 MG/200 ML BAG 200 MG IV (10:32)
--- NOTE | 2020-09-27 15:33 | PCM.PN.HOSP ---
Patient Problems: Active and Suspected Problems Acute hyponatremia (Acute) Elevated troponin (Acute) Subjective: Patient seen and examined. She has been managed for hyponatremia normal cardiac enzymes as well as protested pneumonia. She has no complaints today. She is very frail and lethargic. Review of systems otherwise negative. Hemodynamically stable though she remains on 2 L of oxygen. Sodium is 127 today. Vitals/I&O's: Vital Signs Temp Pulse Resp BP Pulse Ox 97.4 F L 59 L 16 129/64 H 96 09/27/20 09:00 09/27/20 09:00 09/27/20 09:00 09/27/20 09:00 09/27/20 09:00 Oxygen Flow Rate (L/min) 2 Oxygen Delivery Method Room Air Weight: 149 lb 3.201 oz Body Mass Index (BMI) 27.3 Intake and Output for Last 24 Hours 09/25/20 09/26/20 09/27/20 23:59 23:59 23:59 Intake Total 940 / 940 1075 / 1125 703 / 703 Output Total 1350 / 1350 300 / 525 685 / 685 Balance -410 / -410 775 / 600 General: Alert, Oriented x3, Cooperative, No apparent distress, Lethargic HEENT: Atraumatic, PERRLA, EOMI, Normocephalic Oral: Dry Mucosa Neck: Supple, No JVD, Negative Carotid Bruits Lungs: Clear to auscultation, Normal air movement, No rhonchi, No wheeze, No rales Cardiovascular: Regular rate, Regular Rhythm, Normal S1, Normal S2, No murmurs Abdomen: Bowel Sounds Present, Soft, Non Tender, Non-Distended, No Hepato-splenomegaly Extremities: No clubbing, No cyanosis, No edema, Capillary Refill Less than 3 Seconds Skin: No rashes, No breakdown Musculoskeletal: No Tenderness to Palpation of Joints or Extremities Lymphatic: No Cervical, Supraclavicular, or Inguinal Adenopathy Neurological: Cranial nerves II-XII grossly intact, Neuro grossly intact, Motor Exam 5/5 strength throughout Psych/Mental Status: Normal Affect, Appropriate, Alert and oriented to time, place, person, mood and affect Microbiology Past 72 Hours 09/21/20 13:35 Blood Culture (Wb) - Left Hand Blood Culture - Final No growth in 5 days. 09/21/20 12:23 Blood Culture (Wb) - Anticubital Right Blood Culture - Final No growth in 5 days. Laboratory Results 09/27/20 05:02: WBC 7.3, RBC 3.31 L, Hgb 10.7 L, Hct 32.9 L, MCV 99.4 H, MCH 32.3 H, MCHC 32.5, RDW Std Deviation 48.9 H, RDW Coeff of Pelon 13.3, Plt Count 202, MPV 9.6, Immature Gran % (Auto) 0.400, Neut % (Auto) 69.9, Lymph % (Auto) 14.9 L, [place] % (Auto) 11.9 H, Eos % (Auto) 2.2, Baso % (Auto) 0.7, Absolute Neuts (auto) 5.1, Absolute Lymphs (auto) 1.09, Nucleated RBC % 0 09/27/20 05:02: Sodium 127 L, Potassium 4.4, Chloride 93 L, Carbon Dioxide 30.0, Anion Gap 4 L, BUN 44 H, Creatinine 0.91, Estim Creat Clear Calc 38.35, Est GFR (MDRD) Af Amer 76, Est GFR (MDRD) Non-Af 63, BUN/Creatinine Ratio 48.2 H, Glucose 86, Calcium 9.[address] 09/21/20 12:09 IMPRESSION: Chronic involutional changes of the brain. Electronically Signed: Keyla Villagomez MD at 13:33 EST Tel , Service support , Chest X-Ray 09/26/20 07:15 IMPRESSION: No change from 09/21/2020. Electronically Signed: Todd Bains MD at 7:44 EST Tel , Service support , Current Medications Acetaminophen (Acetaminophen 325 Mg Tablet) 650 mg PO Q6H PRN PRN PRN Reason: Pain Score 1-10/Temp > 100.7 F Last Admin: 09/25/20 20:29 Dose: 650 mg Documented by: Alprazolam (Alprazolam 0.5 Mg Tablet) 0.5 mg PO TID PRN PRN PRN Reason: ANXIETY Last Admin: 09/26/20 21:06 Dose: 0.5 mg Documented by: Amlodipine Besylate (Amlodipine 10 Mg Tablet) 10 mg PO DAILY [facility] Last Admin: 09/27/20 09:14 Dose: 10 mg Documented by: Aspirin (Aspirin E.C. 81 Mg Tablet) 81 mg PO DAILY@0800 [facility] Last Admin: 09/27/20 09:14 Dose: 81 mg Documented by: Carvedilol (Carvedilol 25 Mg Tablet) 25 mg PO BID [facility] Last Admin: 09/27/20 09:12 Dose: Not Given Documented by: Divalproex Sodium (Divalproex Sodium 250 Mg Tablet) 500 mg PO QHS [facility] Last Admin: 09/26/20 21:06 Dose: 500 mg Documented by: Enoxaparin Sodium (Enoxaparin 40 Mg/0.4 Ml Syringe) 40 mg SC DAILY [facility] Last Admin: 09/27/20 09:14 Dose: 40 mg Documented by: Hydralazine HCl (Hydralazine 20 Mg/Ml Vial) 5 mg IV Q6H PRN PRN PRN Reason: BLOOD PRESSURE Last Admin: 09/22/20 15:38 Dose: 5 mg Documented by: Piperacillin Sod/Tazobactam (Sod 3.375 gm/ Sodium Chloride) 50 mls @ 12.5 mls/hr IV Q8 [facility] Last Admin: 09/27/20 15:00 Dose: 12.5 mls/hr Documented by: Vancomycin IV Pharmacy to Dose (1 ea/ Sodium Chloride) 500 mls @ 250 mls/hr IV PRN PRN; Protocol PRN Reason: Rx to Dose Vancomycin HCl (Vancomycin) 1,000 mg in 200 mls @ 200 mls/hr IV Q24H [facility] Last Infusion: 09/27/20 11:32 Dose: Infused Documented by: Losartan Potassium (Losartan Potassium 100 Mg Tablet) 100 mg PO QHS [facility] Last Admin: 09/26/20 08:44 Dose: 100 mg Documented by: Olanzapine (Olanzapine 2.5 Mg Tablet) 2.5 mg PO DAILY [facility] Last Admin: 09/27/20 09:14 Dose: 2.5 mg Documented by: Olanzapine (Olanzapine 10 Mg Tablet) 10 mg PO QHS [facility] Last Admin: 09/26/20 21:06 Dose: 10 mg Documented by: Ondansetron HCl (Ondansetron 4 Mg/2 Ml Vial) 4 mg IV Q8H PRN PRN PRN Reason: NAUSEA/VOMITING Last Admin: 09/24/20 09:04 Dose: 4 mg Documented by: Senna (Senna Tablet) 2 tablet PO BID [facility] Last Admin: 09/27/20 09:14 Dose: 2 tablet Documented by: Sodium Chloride (0.9% Saline Lock 10 Ml Syringe) 10 - 40 ml IV UD PRN PRN Reason: SALINE FLUSH Last Admin: 09/26/20 21:04 Dose: 20 ml Documented by: Timolol Maleate (Timolol 0.5% 5ml Opth.Btl) 1 drop EACH EYE BID [facility] Last Admin: 09/27/20 09:14 Dose: 1 drop Documented by: Medical Necessity - Tobacco Use Smoking Status: Former smoker Tobacco Use: Cigarettes Assessment/Plan All Active Problems Acute hyponatremia (Acute) Elevated troponin (Acute) #hyponatremia sodium is 127 today patient still looks very dry will hydrate with IVF and trend sodium depakote and Maxzide on hold #Healthcare associated pneumonia on IV vancomycin and zosyn. wbc is 7.3 #Abnormal cardiac enzymes troponins are chronically elevated 2D echo: 55%, with normal LV size and pulmonary artery pressure of 40 on aspirin, Coreg and losartan. #CAD s/p stents on apirin, coreg and losartan #Anxiety and bipolar disorder: on xanax, depakote and zyprexa #Hypertension: on norvasc and Coreg DVT prophylaxis: sc lovenox Disposition: awaiting discharge to TCU Inpatient E&M: 50719 Subs Hosp L2
[2020-09-27] MEDS: 0.9% Normal Saline 1,000 ML 125 ML IV (16:27)
[2020-09-27] MEDS: Divalproex Sodium 250 MG Tablet 500 MG PO (20:34)
[2020-09-27] MEDS: OLANZapine 10 MG Tablet PO (20:35)
[2020-09-27] MEDS: Carvedilol 25 MG Tablet PO (20:35)
[2020-09-27] MEDS: Losartan Potassium 100 MG Tablet PO (20:35)
[2020-09-27] MEDS: ALPRAZolam 0.5 MG Tablet PO (20:36)
[2020-09-28] MEDS: 0.9% Normal Saline 1,000 ML 125 ML IV (00:42)
[2020-09-28 02:39] VITALS: BP 145/58; PULSE 65; RESP 16; TEMP 36.9; O2SAT 92
[2020-09-28 03:00] VITALS: PULSE 62
[2020-09-28 07:00] VITALS: PULSE 61
[2020-09-28 08:40] VITALS: O2SAT 89
[2020-09-28 08:42] VITALS: BP 122/61; PULSE 76; RESP 19; TEMP 36.8; O2SAT 93
[2020-09-28] MEDS: Senna Tablet 2 TABLET PO (08:55)
[2020-09-28] MEDS: OLANZapine 2.5 MG Tablet PO (08:55)
[2020-09-28] MEDS: amLODIPine 10 MG Tablet PO (08:55)
[2020-09-28] MEDS: Carvedilol 25 MG Tablet PO (08:55)
[2020-09-28] MEDS: Aspirin E.C. 81 MG Tablet PO (08:55)
[2020-09-28] MEDS: Enoxaparin 40 MG/0.4 ML Syringe SC (08:55)
[2020-09-28] MEDS: Timolol 0.5% 5ML OPTH.BTL 1 DRP EACH EYE (08:56)
[2020-09-28 09:11] LABS: Absolute Lymphocyte Count 1.07 X10^3/uL (0.83-4.51); Absolute Neutrophil Count 4.7 X10^3/uL (2.0-7.7); Basophil# 0.05 X10^3/uL; Basophil% 0.8 % (0-1); Eosinophil# 0.12 X10^3/uL; Eosinophils% 1.8 % (0-5); Hematocrit 34.8 % (37-47); Hemoglobin 11.7 g/dL (12.0-15.0); Lymphocyte # 1.07 X10^3/ul (4.0); Lymphocyte % 16.1 % (19-41); Mean Corp Hgb Conc 33.6 g/dL (32-36); Mean Platelet Vol. 9.2 fl (6.2-12.0); Monocyte# 0.67 X10^3/uL; Monocyte% 10.1 % (0-10); NRBC Flagged by Analyzer 0 % (0-5); Neutrophil # 4.73 X10^3/uL (2.7-7.7); Neutrophil % 70.9 % (47-70); Platelet Count 247 K/mm3 (150-450); RBC Distribution Width CV 13.6 % (11.6-14.6); RBC Distribution Width SD 49.8 fl (35.1-43.9); Red Blood Count 3.55 M/mm3 (4.2-5.4); White Blood Count 6.7 K/mm3 (4.4-11.0)
--- NOTE | 2020-09-28 09:29 | PCM.TXEXTCAR ---
- Diet 09/22/20 12:08 Diet: Regular - General Type of Dietary Supplement:: Ensure Enlive Is pt able to select menu?: Yes Diet Comments: cut up meats; 120mL vanilla w/ meals - Routine Orders/Code Status Enema Type: Fleetz Enema Frequency: Daily PRN Suppository Type: Dulcolax 10mg Suppository Frequency: Daily PRN O2 Frequency: PRN Keep PO Greater than or Equal to (%): 90 Code Status: DNRCC-A - Therapies Weight Bearing: Weight bearing as tolerated Physical Therapy: Eval and Treat Occupational Therapy: Eval and Treat - Allergies/Procedures Done in Hospital Allergies/Adverse Reactions: Allergies ciprofloxacin [From Cipro] Allergy (Verified 09/21/20 11:53) Itching sulfamethoxazole [From Bactrim] Allergy (Verified 09/21/20 11:53) Itching trimethoprim [From Bactrim] Allergy (Verified 09/21/20 11:53) Itching Procedures: 2-D Echocardiogram - Type of Care/Length of Stay Estimated LOS: Convalescent Care Less Than 30 days Type of Care Needed: Skilled Rehab Potential: Fair Prognosis: Fair - Additional Orders/Day of Discharge Day of Discharge: 09/28/20 - Dietary and Speech Recommendations Dietitian Recommendations/Changes: regular diet, cut up meats per pt request; 120mL ensure enlive w/ meals; continue fluid restriction as indicated. - Follow Up Care Primary Care Physician: Edu Hdz MD [Primary Care Provider] - Please follow up with your Primary Care Physician in: 1-2 WEEKS
[2020-09-28 09:46] LABS: Anion Gap 7 (5-15); BUN 42 mg/dL (7-18); BUN/Creat Ratio 39.3 RATIO (10-20); Calcium,Total 8.6 mg/dL (8.5-10.1); Chloride 96 mmol/L (98-107); Creatinine, Serum 1.07 mg/dL (0.55-1.02); EST Glomerular Filtration Rate 52 mL/min (>60); Est Glom Filt Rate - Afr Amer 63 mL/min (>60); Estimated Creatinine Clearance 32.61 ml/min; Glucose 97 mg/dL (74-106); Potassium 4.5 mmol/L (3.5-5.1); Sodium Level 129 mmol/L (136-145)
--- NOTE | 2020-09-28 10:11 | CASEMGMT ---
Patient is ready for discharge to TCU today. CORINE copied orders. CORINE called patient's son, Kun and let him know patient is ready for discharge to TCU today. He was planning on coming to see her today around 1230. CORINE told him we will keep her so he can see her before she goes since he cannot see her once she is over in TCU. He thanked CORINE. CORINE notified RN, project controls specialist, and charge coordinator. Plan: d/c to [facility] TCU under skilled level of care. Felicia KABA MSW
[2020-09-28 10:30] LABS: Vancomycin, Trough Level 16.5 ug/mL (5.0-15.0)
--- NOTE | 2020-09-28 10:43 | PHA.DC.MR ---
Pharmacy Service has performed discharge medication reconciliation for this patient. The patient's discharge medication list was reviewed for discrepancies and discrepancies were resolved. Home Medications Olanzapine [Zyprexa] 2.5 mg PO DAILY 08/12/16 Olanzapine [Zyprexa] 10 mg PO QHS 08/12/16 Senna [Senokot] 2 tablet PO BID 08/12/16 Aspirin E.C. [Ecotrin] 81 mg PO DAILY@0800 tablet 08/16/16 Timolol 0.5% [Timoptic] 1 drop EACH EYE BID 01/16/17 ALPRAZolam [Xanax] 0.5 mg PO TID PRN #9 tablet 01/19/17 Divalproex Sodium 500 mg PO QHS 09/21/20 Ensure Enlive 120 ml PO 4X/DAY 09/21/20 Metoprolol Tartrate [Lopressor (beta casa)] 100 mg PO BID 09/21/20 Olmesartan Medoxomil 40 mg PO QHS 09/21/20 Trazodone HCl 100 - 200 mg PO QHS 09/21/20 Triamterene 37.5MG/Hctz 25MG [Maxzide 37.5 mg-25 mg Tablet] 1 tab PO DAILY 09/21/20
--- NOTE | 2020-09-28 11:41 | NURSING ---
Report called to Eleanor BRIGHT at [facility]. Informed that son will be coming to visit first.
--- NOTE | 2020-09-28 12:49 | PCM.RX.CS ---
Consult Pharmacy has been consulted to manage selected antiobiotic: Vancomycin Type of Consult: Follow-up Suspected Infection: Pneumonia Prior Doses of Antibiotics Received/Current Regimen: currently on 1000mg q24h Labs: Sodium 129 mmol/L (136-145) L 09/28/20 08:50 Potassium 4.5 mmol/L (3.5-5.1) 09/28/20 08:50 Chloride 96 mmol/L (98-107) L 09/28/20 08:50 Carbon Dioxide 26.0 mmol/L (21.0-32.0) 09/28/20 08:50 Anion Gap 7 (5-15) 09/28/20 08:50 BUN 42 mg/dL (7-18) H 09/28/20 08:50 Creatinine 1.07 mg/dL (0.55-1.02) H 09/28/20 08:50 Est GFR (MDRD) Af Amer 63 mL/min (>60) 09/28/20 08:50 Est GFR (MDRD) Non-Af 52 mL/min (>60) L 09/28/20 08:50 BUN/Creatinine Ratio 39.3 RATIO (10-20) H 09/28/20 08:50 Glucose 97 mg/dL (74-106) 09/28/20 08:50 Vancomycin Trough 16.5 ug/mL (5.0-15.0) H 09/28/20 09:24 Microbiology: Microbiology 09/21/20 13:35 Blood Culture (Wb) - Left Hand Blood Culture - Final No growth in 5 days. 09/21/20 12:23 Blood Culture (Wb) - Anticubital Right Blood Culture - Final No growth in 5 days. 09/21/20 12:20 Mucosa - Nose SARS-CoV-2 Antigen (Rapid) - Final Weight used for dosin.7 kg Estimated Creatinine Clearance: 33ml/min Goal Trough: 15-20 mcg/mL Pharmacy Plan for Drug Dosing: Trough drawn today was 16.5 (drawn 23 hrs after the previous dose). Will keep same dose of 1000mg q24h since trough was within goal range but since the trough is already at 16.5 after just one dose of 1750mg and one dose of 1000mg, will repeat the trough again in a couple days. Pharmacy Service will continue to monitor and adjust dosing as required. Follow-Up Labs: Trough Vancomycin Labs to be done on [date and time ordered]: 09/30/20 0930 or 30 min prior to the dose on 09/30 if on different time if pt goes to TCU
--- NOTE | 2020-09-28 13:53 | CASEMGMT ---
SW met with patient and her son per his request. He had some questions that SW answered. He wondered how to talk with patient when she is in TCU. SW told him SW will find out what room she is going to and let him know. SW called TCU and patient is going to TCU room 10. The phone number is [phone]. CORINE wrote down this information and gave it to patient's son. Plan: d/c to [facility] TCU under skilled level of care. Felicia KABA MSW
[2020-09-28 14:15] VITALS: BP 114/50; PULSE 61; RESP 18; TEMP 36.8; O2SAT 95
--- NOTE | 2020-09-28 15:30 | DS.PCM_ITS ---
Discharge Date and Diagnosis - Problem List Patient Problems: Active and Suspected Problems Acute hyponatremia (Acute) Elevated troponin (Acute) Date of Admission: 09/21/20 Date of Discharge: 09/28/20 - Primary Discharge Diagnosis Acute Problems: Active Problems Acute hyponatremia (Acute) Elevated troponin (Acute) - Secondary Discharge Diagnosis Chronic Problems: Chronic Problems Hiatal hernia (Chronic) HTN (hypertension) (Chronic) Bipolar disorder (Chronic) Anxiety disorder (Chronic) History of DVT (deep vein thrombosis) (Chronic) Coronary artery disease (Chronic) Hospital Course and Treatment Imaging Results: Diagnostic Data Brain CT 09/21/20 12:09 IMPRESSION: Chronic involutional changes of the brain. Electronically Signed: Keyla Villagomez MD at 13:33 EST Tel , Service support , Chest X-Ray 09/26/20 07:15 IMPRESSION: No change from 09/21/2020. Electronically Signed: Todd Bains MD at 7:44 EST Tel , Service support , Operations: None Procedures: 2-D Echocardiogram Summary of Care Provided: The patient is a 79 year old F with a past medical history as outlined was admitted through the ED from assisted living facility with a complaint of weakness and confusion. She had recently been started on a diuretic for lower extremity swelling. She has also had some intermittent diarrhea. Review systems otherwise negative. On admission, she was found to be profoundly hyponatremic with sodium of 114. She was admitted and managed for acute hyponatremia due to diuretic use. Diuretics were stopped and she was started on hydration with IV fluids. Sodium gradually improved. On admission, she also became short of breath and was found to have health associated pneumonia. She was therefore started on IV vancomycin and Zosyn. His symptoms improved and she did much better. Sodium gradually improved. Her troponins were also slightly abnormal, though she had no chest pain or any cardiac symptoms. 2D echo was done which showed EF of 55% with normal left ventricular size and function pulmonary artery systolic pressure of 40 mmHg. Patient was already on aspirin, Coreg and losartan. Symptoms improved and sodium was 129. She was discharged to SNF on 09/28/2020. She is to follow up with her PCP in 1-2 weeks. Patient seen and examined prior to discharge. She had no complaints. Review of systems otherwise negative. labs and vitals reviewed. Home medication reviewed and reconciled. Sodium was up to 129. O/E: Vital Signs Temp Pulse Resp BP Pulse Ox 98.3 F 61 18 114/50 L 95 09/28/20 14:15 09/28/20 14:15 09/28/20 14:15 09/28/20 14:15 09/28/20 14:15 General: Alert, Oriented x3, Cooperative, No apparent distress, HEENT: Atraumatic, PERRLA, EOMI, Normocephalic Oral: Dry Mucosa Neck: Supple, No JVD, Negative Carotid Bruits Lungs: Clear to auscultation, Normal air movement, No rhonchi, No wheeze, No rales Cardiovascular: Regular rate, Regular Rhythm, Normal S1, Normal S2, No murmurs Abdomen: Bowel Sounds Present, Soft, Non Tender, Non-Distended, No Hepato- splenomegaly Extremities: No clubbing, No cyanosis, No edema, Capillary Refill Less than 3 Seconds Skin: No rashes, No breakdown Musculoskeletal: No Tenderness to Palpation of Joints or Extremities Lymphatic: No Cervical, Supraclavicular, or Inguinal Adenopathy Neurological: Cranial nerves II-XII grossly intact, Neuro grossly intact, Motor Exam 5/5 strength throughout Psych/Mental Status: Normal Affect, Appropriate, Alert and oriented to time, place, person, mood and affect Plan is for discharge to SNF today. She is to have follow up BMP at SNF to trend sodium level Patient Problems: Active and Suspected Problems Acute hyponatremia (Acute) Elevated troponin (Acute) - Physical Exam Vitals/I&O's: Vital Signs Temp Pulse Resp BP Pulse Ox 98.3 F 61 18 114/50 L 95 09/28/20 14:15 09/28/20 14:15 09/28/20 14:15 09/28/20 14:15 09/28/20 14:15 Oxygen Flow Rate (L/min) 2 Oxygen Delivery Method Room Air Weight: 149 lb 3.201 oz Body Mass Index (BMI) 27.3 Intake and Output for Last 24 Hours 09/26/20 09/27/20 09/28/20 23:59 23:59 23:59 Intake Total 1075 / 1125 886 / 886 2647 / 2647 Output Total 300 / 525 685 / 685 350 / 350 Balance 775 / 600 201 / 201 2297 / 2297 Microbiology Past 72 Hours 09/21/20 13:35 Blood Culture (Wb) - Left Hand Blood Culture - Final No growth in 5 days. 09/21/20 12:23 Blood Culture (Wb) - Anticubital Right Blood Culture - Final No growth in 5 days. Laboratory Results 09/28/20 08:50: WBC 6.7, RBC 3.55 L, Hgb 11.7 L, Hct 34.8 L, MCV 98.0, MCH 33.0 H, MCHC 33.6, RDW Std Deviation 49.8 H, RDW Coeff of Pelon 13.6, Plt Count 247, MPV 9.2, Immature Gran % (Auto) 0.300, Neut % (Auto) 70.9 H, Lymph % (Auto) 16.1 L, Merrick % (Auto) 10.1 H, Eos % (Auto) 1.8, Baso % (Auto) 0.8, Absolute Neuts (auto) 4.7, Absolute Lymphs (auto) 1.07, Nucleated RBC % 0 09/28/20 08:50: Sodium 129 L, Potassium 4.5, Chloride 96 L, Carbon Dioxide 26.0, Anion Gap 7, BUN 42 H, Creatinine 1.07 H, Estim Creat Clear Calc 32.61, Est GFR (MDRD) Af Amer 63, Est GFR (MDRD) Non-Af 52 L, BUN/Creatinine Ratio 39.3 H, Glucose 97, Calcium 8.6 09/28/20 09:24: Vancomycin Trough 16.5 H Discharge Diet: Low fat/ Low Cholesterol Discharge Activity: Return to Normal Activity Weight Bearing Status: Weight bearing as tolerated Call your doctor if you observe: Fever of 101 or Higher, Shortness of breath, Dizziness, Fainting spells, Increased palpitations (irregular heartbeat) Home Medications: Medications to take at Discharge Olanzapine [Zyprexa] 2.5 mg PO DAILY 08/12/16 Olanzapine [Zyprexa] 10 mg PO QHS 08/12/16 Senna [Senokot] 2 tablet PO BID 08/12/16 Timolol 0.5% [Timoptic] 1 drop EACH EYE BID 01/16/17 ALPRAZolam [Xanax] 0.5 mg PO TID PRN #9 tablet 01/19/17 Divalproex Sodium 500 mg PO QHS 09/21/20 Ensure Enlive 120 ml PO 4X/DAY 09/21/20 Metoprolol Tartrate [Lopressor (beta casa)] 100 mg PO BID 09/21/20 Olmesartan Medoxomil 40 mg PO QHS 09/21/20 Trazodone HCl 100 - 200 mg PO QHS 09/21/20 Triamterene 37.5MG/Hctz 25MG [Maxzide 37.5 mg-25 mg Tablet] 1 tab PO DAILY 09/21/20 Aspirin E.C. [Ecotrin] 81 mg PO DAILY@0800 09/28/20 Primary Care Physician: Edu Hdz MD [Primary Care Provider] - Please follow up with your Primary Care Physician in: 1-2 WEEKS Disposition: Longterm facility Minutes spent on discharge:: 40 Patient Condition:: Stable Medical Necessity - Tobacco Use Smoking Status: Former smoker Tobacco Use: Cigarettes Meaningful Use Info Meaningful Use Diagnoses (Choose all that apply): None applicable Inpatient E&M: 25845 Disch Hosp
== END 2020-09-28 14:25 | disposition skilled nursing facility (03) | DRG 643 ==
LOC: ED 14:12 → PCU 15:25
PROVIDERS: Hospitalist; Nurse Practitioner Family; Admitting Provider Family Medicine; Emergency Provider Emergency Medicine; PCP Family Medicine; Visit Provider Student in an Organized Health Care Education/Training Program
DX: E22.2 Syndrome of inappropriate secretion of antidiuretic hormone (principal); J18.9 Pneumonia, unspecified organism; T50.2X5A Adverse effect of carbonic-anhydrase inhibitors, benzothiadiazides and other diuretics, initial encounter; I25.10 Atherosclerotic heart disease of native coronary artery without angina pectoris; I25.2 Old myocardial infarction; I10 Essential (primary) hypertension; F31.9 Bipolar disorder, unspecified; F41.9 Anxiety disorder, unspecified; K44.9 Diaphragmatic hernia without obstruction or gangrene; R77.8 Other specified abnormalities of plasma proteins; R09.02 Hypoxemia; Y95 Nosocomial condition; Z66 Do not resuscitate; Z95.5 Presence of coronary angioplasty implant and graft; Z86.718 Personal history of other venous thrombosis and embolism; Z79.82 Long term (current) use of aspirin; Z79.899 Other long term (current) drug therapy; Z87.891 Personal history of nicotine dependence
CPT/HCPCS: 36415; 70450; 71045; 80048; 80053; 80202; 81001; 82024; 82533; 83605; 83930; 83935; 84133; 84295; 84300; 84443; 84484; 85025; 87040; 87426; 93005; 93306; 97110; 97162; 97166; 97530; 97535; 97802; 97803; 99251; 99285; J7030; J7040; P9612; A4216; G0463; J2405

== ENCOUNTER 2020-09-28 14:27 | Inpatient (IN) | payer MEDICARE, OTHER, SELFPAY ==
[2020-09-21 11:47] VITALS: BMI 25.0
[2020-09-21 14:34] VITALS: BMI 27.3
[2020-09-28 14:32] VITALS: BP 123/54; PULSE 62; RESP 16; TEMP 36.1; O2SAT 94
[2020-09-28 14:37] VITALS: BMI 29.1
[2020-09-28 14:42] VITALS: BMI 29.2
--- NOTE | 2020-09-28 15:36 | NURSING ---
R' STATES SHE HAD FIRST DOSE OF COVID VACCINE. [facility]ED [facility] AND SPOKE WITH SANTINO. SHE STATED R' DID RECEIVE FIRST DUQUE OF MODERNA VACCINE 08/20/2020. ASKER TO FAX COPY OF VACCINE CARD BUT UNABLE D/T NO FAX MACHINE. 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 AGREEABLE.
--- NOTE | 2020-09-28 16:09 | NURSING ---
Dr Najera requesting dyazide be dc'd
[2020-09-28] MEDS: Senna Tablet 2 TABLET PO (17:03)
[2020-09-28 17:04] VITALS: PULSE 75
[2020-09-28] MEDS: Metoprolol Tartrate 100 MG Tablet PO (17:04)
[2020-09-28] MEDS: Timolol 0.5% 5ML OPTH.BTL 1 DRP EACH EYE (18:18)
--- NOTE | 2020-09-28 19:38 | HP.PCM_ITS ---
Problem List (1) Debility Status: Acute (2) Weakness Status: Acute (3) Acute delirium Status: Acute (4) Hyponatremia Status: Acute (5) Aspiration pneumonia Status: Acute (6) Anxiety Status: Chronic (7) Bipolar disorder Status: Chronic (8) DVT (deep venous thrombosis) Status: Chronic (9) Elevated troponin Status: Acute (10) Hiatal hernia Status: Chronic (11) HTN (hypertension) Status: Chronic Qualifiers: (12) Coronary artery disease Status: Chronic History of Present Illness Date of Admission: 09/28/20 Chief Complaint: Here for rehabilitation, strengthening, prior to discharge to [facility]. 09/21/2020 The patient is a 79 year old Female with below past medical history presented to [facility] Emergency Department with weakness. 09/21/2020 CT brain chronic involutional changes of brain. 09/21/2020 Chest X-ray degenerative changes. 09/21/2020 EKG sinus bradycardia with 1st degree AV block, left ventricular hypertrophy with QRS widening, repolarization abnormality, abnormal EKG. Confused, blood pressure okay, heart rate okay. Usually sharp, unable to stand or walk. Right hip pain, Right pelvis pain. Normal saline gentle IV for hyponatremia, also elevated troponin, bradycardia. 09/21/2020 Admit to Hospital. IV Fluids, Hold Maxzide for hyponatremia. Trend troponin. Clonidine x 1 dose, PRN hydralazine for elevated blood pressure. PT/OT. 09/22/2020 Confused. Hold Depakote, Hold Maxzide, IV fluids for hyponatremia. Metoprolol switched to carvedilol, start amlodipine for hypertension. 09/22/2020 Echo Normal LV size. Left ventricular systolic function normal. EF 55%. Left atrium slightly enlarged. Pulmonary artery systolic pressure 40mm HG. 09/23/2020 Sodium 116, SIADH, Fluid restriction. Elevated troponin chronic, no further cardiac evaluation at this time. 09/24/2020 Sodium 120, no seizures. PT/OT recommended [facility] facility for [facility] rehab. 09/25/2020 Sodium 124, continue fluid restriction. 09/26/2020 Chest X-ray unchanged. 09/27/2020 Sodium 127, dehydrated, given IV fluids. Vancomycin, Zosyn IV for aspiration pneumonia with improvement. 09/28/2020 Sodium improved to 129. Admit to TCU with debility, here for rehabilitation, strengthening, prior to discharge to [place], [place]. Past Medical History Past Medical History (Chronic Problems): Chronic Problems Anxiety (Chronic) Bipolar disorder (Chronic) DVT (deep venous thrombosis) (Chronic) Hiatal hernia (Chronic) HTN (hypertension) (Chronic) Bipolar disorder (Chronic) Anxiety disorder (Chronic) History of DVT (deep vein thrombosis) (Chronic) Coronary artery disease (Chronic) Allergies ciprofloxacin [From Cipro] Allergy (Verified 09/21/20 11:53) Itching sulfamethoxazole [From Bactrim] Allergy (Verified 09/21/20 11:53) Itching trimethoprim [From Bactrim] Allergy (Verified 09/21/20 11:53) Itching Home Medications: Ambulatory Orders Medication Instructions Recorded Olanzapine [Zyprexa] 2.5 mg PO DAILY 08/12/16 Olanzapine [Zyprexa] 10 mg PO QHS 08/12/16 Senna [Senokot] 2 tablet PO BID 08/12/16 Timolol 0.5% [Timoptic] 1 drop EACH EYE BID 01/16/17 ALPRAZolam [Xanax] 0.5 mg PO TID PRN #9 tablet 01/19/17 Divalproex Sodium 500 mg PO QHS 09/21/20 Ensure Enlive 120 ml PO 4X/DAY 09/21/20 Metoprolol Tartrate [Lopressor 100 mg PO BID 09/21/20 (beta casa)] Olmesartan Medoxomil 40 mg PO QHS 09/21/20 Trazodone HCl 100 - 200 mg PO QHS 09/21/20 Aspirin E.C. 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 Smoking Status: Former smoker Tobacco Use: Cigarettes Alcohol: None Drugs: None - *Family History Maternal History Items: - - Denies known maternal medical history including cardiac history. Paternal History Items: - - Denies known paternal medical history including cardiac history. Review of Systems Constitutional: Denies: Chills, Fever, Weight Change HEENT: Denies: Head Aches, Sinus Congestion, Sinus Drainage Cardiovascular: Denies: Chest Pain, Palpitations Respiratory: Denies: Cough, Shortness of breath at rest, Sputum production Gastrointestinal: Denies: Abdominal Pain, Nausea, Vomiting Genitourinary: Denies: Dysuria Musculoskeletal: Denies: Joint Pain, Joint Tenderness Skin: Denies: Rash, Wounds Neurological: Denies: Numbness, Tingling, Focal weakness Psychiatric: Denies: Anxiety, Depression, Homicidal Ideations, Suicidal Ideations Hematologic/ Lymphatic: Denies: Easy Bruising, Easy Bleeding VTE Information - Inpt Only VTE Present on Admission: No VTE Mechan Device Prophylaxis: Knee High SOFEI Hose VTE Pharm Prophylaxis ordered?: Yes Patient Problems: Active and Suspected Problems Debility (Acute) Weakness (Acute) Acute delirium (Acute) Hyponatremia (Acute) Aspiration pneumonia (Acute) Elevated troponin (Acute) - Physical Exam Vitals/I&O's: Vital Signs Temp Pulse Resp BP Pulse Ox 97.0 F L 75 16 123/54 H 94 09/28/20 14:32 09/28/20 17:04 09/28/20 14:32 09/28/20 14:32 09/28/20 14:32 Oxygen Flow Rate (L/min) 2 Oxygen Delivery Method Nasal Cannula Weight: 72.32 kg Body Mass Index (BMI) 29.1 Intake and Output for Last 24 Hours 09/26/20 09/27/20 09/28/20 23:59 23:59 23:59 Intake Total 120 / 120 Balance 120 / 120 General: Alert, Oriented x3, Cooperative HEENT: Atraumatic, PERRLA, EOMI, Normocephalic Neck: Supple, No JVD, Negative Carotid Bruits Lungs: Clear to auscultation, Normal air movement Cardiovascular: Regular rate, No murmurs Abdomen: Bowel Sounds Present, Soft, Non Tender Extremities: No edema, Capillary Refill Less than 3 Seconds Skin: No rashes, No breakdown Musculoskeletal: No Tenderness to Palpation of Joints or Extremities Neurological: Cranial nerves II-XII grossly intact Psych/Mental Status: Normal Affect, Appropriate Laboratory Results 09/28/20 15:45: COVID-19 ([facility]) Cancelled Current Medications Alprazolam (Alprazolam 0.5 Mg Tablet) 0.5 mg PO TID PRN PRN Reason: ANXIETY Aspirin (Aspirin E.C. 81 Mg Tablet) 81 mg PO DAILY@0800 [facility] Bisacodyl (Bisacodyl 10 Mg Suppository) 10 mg RC DAILY PRN PRN Reason: Constipation Calamine/Phenol (Menthol/Lanolin/Calamine/Znox 113 Gm Tube) 1 applic TOPICAL BID [facility]; Protocol Divalproex Sodium (Divalproex Sodium 250 Mg Tablet) 500 mg PO QHS [facility] Losartan Potassium (Losartan Potassium 100 Mg Tablet) 100 mg PO QHS [facility] Metoprolol Tartrate (Metoprolol Tartrate 100 Mg Tablet) 100 mg PO BID [facility] Last Admin: 09/28/20 17:04 Dose: 100 mg Documented by: Olanzapine (Olanzapine 2.5 Mg Tablet) 2.5 mg PO DAILY [facility] Olanzapine (Olanzapine 10 Mg Tablet) 10 mg PO QHS [facility] Senna (Senna Tablet) 2 tablet PO BID [facility] Last Admin: 09/28/20 17:03 Dose: 2 tablet Documented by: Timolol Maleate (Timolol 0.5% 5ml Opth.Btl) 1 drop EACH EYE BID [facility] Last Admin: 09/28/20 18:18 Dose: 1 drop Documented by: Trazodone HCl (Trazodone 100 Mg Tablet) 100 - 200 mg PO QHS [facility] Tuberculin PPD (Tuberculin,Purif.Prot.Deriv. 50 Tu/Ml Vial) 5 tu ID [id number] ONE Stop: 09/29/20 10:01 Tuberculin PPD (Tuberculin,Purif.Prot.Deriv. 50 Tu/Ml Vial) 5 tu ID [id number] ONE Stop: 10/06/20 10:01 Assessment/Plan All Active Problems Debility (Acute) Weakness (Acute) Acute delirium (Acute) Hyponatremia (Acute) Aspiration pneumonia (Acute) Acute hyponatremia (Acute) Elevated troponin (Acute) 79 year old female with below past medical history hospitalized for metabolic encephalopathy secondary to hyponatremia, complicated by aspiration pneumonia, elevated troponin, admitted to TCU with debility, here for rehabilitation, strengthening, prior to discharge to [place], [place]. * Debility - PT/OT. * Dysphagia - ST. * Pain - Tylenol 1000MG Q6H PRN pain (1-10). * Bowel - Miralax 17GM daily, Senna/colace 2 tablets BID, MOM 30ML daily PRN, Dulcolax 10MG ID daily PRN, Soap Suds enema for clean out. * Adult immunization - Administer Prevnar 13, Pneumovax 23, Fluzone, COVID19 vaccine as appropriate. * DVT prophylaxis - Lovenox 30MG SC daily. * Anxiety - Xanax 0.5MG TID PRN, stable chronic correction use, GDR not recommended despite increased risk of dementia. * Coronary Artery Disease - Metoprolol 100MG BID, Losartan 100MG daily, Aspirin 81MG daily. * Seizure disorder - Depakote 500MG QHS. * Skin irritation - Calmoseptine topical BID. * Bipolar disorder - Zyprexa 2.5MG QAM, 10MG QHS, stable chronic intermediate school teacher use, GDR not recommended. * Glaucoma - Timoptic 0.5% 1 GTT OU BID. * Insomnia - Trazodone 100-200MG QHS.
[2020-09-28] MEDS: Divalproex Sodium 250 MG Tablet 500 MG PO (22:02)
[2020-09-28] MEDS: traZODone 100 MG Tablet PO (22:03)
[2020-09-28] MEDS: Losartan Potassium 100 MG Tablet PO (22:03)
[2020-09-28] MEDS: Menthol/Lanolin/Calamine/Znox 113 GM Tube 1 APPLIC TOPICAL (22:03)
[2020-09-28] MEDS: OLANZapine 10 MG Tablet PO (22:04)
[2020-09-29 06:01] LABS: Absolute Lymphocyte Count 1.14 X10^3/uL (0.83-4.51); Absolute Neutrophil Count 5.6 X10^3/uL (2.0-7.7); Basophil# 0.04 X10^3/uL; Basophil% 0.5 % (0-1); Eosinophil# 0.14 X10^3/uL; Eosinophils% 1.8 % (0-5); Hematocrit 36.2 % (37-47); Hemoglobin 12.2 g/dL (12.0-15.0); Lymphocyte # 1.14 X10^3/ul (4.0); Lymphocyte % 14.7 % (19-41); Mean Corp Hgb Conc 33.7 g/dL (32-36); Mean Corpuscular Hgb 33.1 pg (27.0-32.0); Mean Corpuscular Volume 98.1 fL (81-99); Mean Platelet Vol. 9.5 fl (6.2-12.0); Monocyte# 0.81 X10^3/uL; Monocyte% 10.5 % (0-10); NRBC Flagged by Analyzer 0 % (0-5); Neutrophil # 5.57 X10^3/uL (2.7-7.7); Neutrophil % 72.1 % (47-70); Platelet Count 252 K/mm3 (150-450); RBC Distribution Width CV 13.6 % (11.6-14.6); RBC Distribution Width SD 48.9 fl (35.1-43.9); Red Blood Count 3.69 M/mm3 (4.2-5.4); White Blood Count 7.7 K/mm3 (4.4-11.0)
[2020-09-29 06:19] VITALS: BP 179/67; PULSE 66
[2020-09-29] MEDS: Metoprolol Tartrate 100 MG Tablet PO ×2 (06:19→17:21)
[2020-09-29] MEDS: Nystatin Powder 15gm Bottle 1 APPLIC TOPICAL ×2 (06:20→17:22)
[2020-09-29] MEDS: Menthol/Lanolin/Calamine/Znox 113 GM Tube 1 APPLIC TOPICAL ×2 (06:20→17:28)
[2020-09-29] MEDS: Timolol 0.5% 5ML OPTH.BTL 1 DRP EACH EYE ×2 (06:21→17:21)
[2020-09-29] MEDS: Senna/Docusate Sodium 1 Tablet 2 TABLET PO ×2 (06:21→17:21)
[2020-09-29] MEDS: OLANZapine 2.5 MG Tablet PO (06:22)
[2020-09-29] MEDS: Enoxaparin 30 MG/0.3 ML Syringe SC (06:29)
[2020-09-29 06:31] VITALS: BP 179/67; PULSE 68; RESP 16; TEMP 36.7; O2SAT 97
[2020-09-29 06:42] LABS: Anion Gap 8 (5-15); BUN 44 mg/dL (7-18); BUN/Creat Ratio 47.2 RATIO (10-20); Calcium,Total 9.1 mg/dL (8.5-10.1); Chloride 94 mmol/L (98-107); Creatinine, Serum 0.93 mg/dL (0.55-1.02); EST Glomerular Filtration Rate 61 mL/min (>60); Est Glom Filt Rate - Afr Amer 74 mL/min (>60); Estimated Creatinine Clearance 37.52 ml/min; Glucose 113 mg/dL (74-106); Potassium 4.2 mmol/L (3.5-5.1); Sodium Level 128 mmol/L (136-145)
[2020-09-29 07:37] VITALS: O2SAT 95
[2020-09-29] MEDS: Aspirin E.C. 81 MG Tablet PO (08:37)
[2020-09-29] MEDS: Tuberculin,Purif.prot.deriv. 50 TU/ML Vial 5 ML ID (11:34)
--- NOTE | 2020-09-29 13:01 | CASEMGMT ---
Social Work Attempted to visit pt but pt having emesis. Notified nursing. Will revisit at another time. Courtney Johnson, [employer]US[employer] BALER FILL MANAGER
[2020-09-29 13:31] VITALS: BP 147/73; PULSE 61; RESP 16; TEMP 36.3; O2SAT 93
[2020-09-29 17:21] VITALS: PULSE 61
[2020-09-29] MEDS: Lactulose 20 GM/30 ML UDC 200 GM RC (21:54)
[2020-09-29] MEDS: traZODone 100 MG Tablet PO (22:37)
[2020-09-29] MEDS: Losartan Potassium 100 MG Tablet PO (22:37)
[2020-09-29] MEDS: Divalproex Sodium 250 MG Tablet 500 MG PO (22:37)
[2020-09-29] MEDS: OLANZapine 10 MG Tablet PO (22:38)
--- NOTE | 2020-09-29 22:51 | NURSING ---
During HS assessment patients abd noted as being distended, patient c/o feeling bloated and feeling nauseated. Per patient she was not passing any flatus or belching and she was c/o abd cramping. Lower abd quadrants noted as being hypoactive and upper abd quadrants tympanic. paged. Telephone orders received for lactulose enema. This is RN updated patient on new orders. This RN and hearse driver Great gave lactulose enema per orders. Patient was positioned onto left side. After enema was given patient was only able to hold enema for approximately 5 minutes before needing to get up to the BSC. X2 assist with walker to the BSC. Patient passed alot of flatus and had XL semi-formed results. Within those results were alot of sediment noted at the base of the BSC. Food particles also present in stool. Immediately following BM patient stated relief, denying feeling bloated, nauseated, no abd cramping. Patient assisted back into bed and rigoberto-care performed, new attends applied. Abd assessment completed, bowel sounds active, abd soft and nontender. COVER MAKER's taking patient down to xray for f/u KUB per orders.
--- NOTE | 2020-09-29 23:00 | RAD_ITS ---
HISTORY: Constipation EXAM: KUB COMPARISON: None FINDINGS: # of images incl. paperwork: 2 No free air is perceived. No dilated or loops of bowel are seen. There is no mass or suspicious calcification. Right total hip arthroplasty. Pelvic phleboliths. Calcification right lateral to the L1-L2 interspace I believe is chondrocalcinosis and not nephrolithiasis or biliary stones. Calcifications within the left hemiabdomen may also be chondrocalcinosis, or even splenic artery atherosclerosis. No evidence of obstruction. RAD/Abdomen Single View IMPRESSION: Distention of bowel with gas, no constipation perceived.. at 0120 Reported and signed by: Margarito Cruz MD Electronically Signed: Margarito Cruz MD at 1:19 EST Tel , Service support ,
[2020-09-30 06:17] VITALS: BP 139/71; PULSE 77; RESP 18; TEMP 36.2; O2SAT 93
[2020-09-30] MEDS: OLANZapine 2.5 MG Tablet PO (06:24)
[2020-09-30] MEDS: Carbidopa/Levodopa 25/100 Tablet PO ×3 (06:24→17:19)
[2020-09-30 06:25] VITALS: PULSE 77
[2020-09-30] MEDS: Enoxaparin 30 MG/0.3 ML Syringe SC (06:25)
[2020-09-30] MEDS: Senna/Docusate Sodium 1 Tablet 2 TABLET PO ×2 (06:25→17:19)
[2020-09-30] MEDS: Timolol 0.5% 5ML OPTH.BTL 1 DRP EACH EYE ×2 (06:25→17:20)
[2020-09-30] MEDS: Metoprolol Tartrate 100 MG Tablet PO ×2 (06:25→17:19)
[2020-09-30] MEDS: Polyethylene Glycol 3350 17 GM PACKET PO (06:25)
[2020-09-30] MEDS: Nystatin Powder 15gm Bottle 1 APPLIC TOPICAL ×2 (06:26→17:20)
[2020-09-30] MEDS: Menthol/Lanolin/Calamine/Znox 113 GM Tube 1 APPLIC TOPICAL ×2 (06:26→17:20)
[2020-09-30 07:20] VITALS: O2SAT 95
[2020-09-30] MEDS: Aspirin E.C. 81 MG Tablet PO (08:51)
[2020-09-30 09:37] LABS: Osmolality, Serum 282 mOsm/KG (280-301)
[2020-09-30 10:00] VITALS: PULSE 72; RESP 18; O2SAT 94
--- NOTE | 2020-09-30 14:06 | CASEMGMT ---
Social Work Met with patient for initial assessment. Discussed code status. Pt confirmed DNR-CCA, no intubation. MOLST form reviewed, communication to DR, placed in chart. Pt does not have HCPOA, LW but would like to complete and name son, Josafat, as HCPOA. SW to assist prior to DC. The goal is for pt to return to [facility] but needs to be close to independent to return and has not been allowing skilled HHC in due to COVID. Explained Medicare benefit. Pt expressed understanding. SW to continue to follow. Courtney Johnson ,RUBBING BED OPERATOR SOCIAL SCIENCE PROFESSOR
[2020-09-30 14:25] VITALS: BP 160/65; PULSE 94; RESP 16; TEMP 36.7; O2SAT 94
--- NOTE | 2020-09-30 14:47 | PCM.PN.RX ---
<Jackie Darby M - Last Filed: 09/30/20 14:47> Progress Note - Pharmacy Subjective: TCU ADMISSION Objective: Allergies ciprofloxacin [From Cipro] Allergy (Verified 09/21/20 11:53) Itching sulfamethoxazole [From Bactrim] Allergy (Verified 09/21/20 11:53) Itching trimethoprim [From Bactrim] Allergy (Verified 09/21/20 11:53) Itching Current Medications Generic Name Dose Route Start Last Admin Trade Name Freq PRN Reason Stop Dose Admin Acetaminophen 1,000 mg 09/28/20 19:58 Acetaminophen 500 Mg Tablet PO Q6H PRN PRN Pain Score 1-10 Alprazolam 0.5 mg 09/28/20 14:47 Alprazolam 0.5 Mg Tablet PO TID PRN ANXIETY Aspirin 81 mg 09/29/20 08:00 09/30/20 08:51 Aspirin E.C. 81 Mg Tablet PO 81 mg DAILY@0800 JANINE Administration Bisacodyl 10 mg 09/28/20 15:03 Bisacodyl 10 Mg Suppository RC DAILY PRN Constipation Calamine/Phenol 1 applic 09/28/20 22:00 09/30/20 06:26 Menthol/Lanolin/Calamine/Znox 113 Gm Tube TOPICAL 1 applicatio BID JANINE Administration Protocol Carbidopa/Levodopa 1 tablet 09/30/20 06:45 09/30/20 11:29 Carbidopa/Levodopa 25/100 Tablet PO 1 tablet TIDAC JANINE Administration Divalproex Sodium 500 mg 09/28/20 22:00 09/29/20 22:37 Divalproex Sodium 250 Mg Tablet PO 500 mg QHS JANINE Administration Enoxaparin Sodium 30 mg 09/29/20 06:00 09/30/20 06:25 Enoxaparin 30 Mg/0.3 Ml Syringe SC 30 mg DAILY@0600 JANINE Administration Losartan Potassium 100 mg 09/28/20 22:00 09/29/20 22:37 Losartan Potassium 100 Mg Tablet PO 100 mg QHS JANINE Administration Magnesium Hydroxide 30 ml 09/28/20 19:59 Magnesium Hydroxide 30 Ml Udc PO DAILY PRN Constipation Metoprolol Tartrate 100 mg 09/28/20 18:00 09/30/20 06:25 Metoprolol Tartrate 100 Mg Tablet PO 100 mg BID JANINE Administration Nystatin 1 applic 09/29/20 06:00 09/30/20 06:26 Nystatin Powder 15gm Bottle TOPICAL 1 applicatio BID JANINE Administration Protocol Olanzapine 2.5 mg 09/29/20 06:00 09/30/20 06:24 Olanzapine 2.5 Mg Tablet PO 2.5 mg DAILY JANINE Administration Olanzapine 10 mg 09/28/20 22:00 09/29/20 22:38 Olanzapine 10 Mg Tablet PO 10 mg QHS JANINE Administration Polyethylene Glycol 17 gm 09/29/20 06:00 09/30/20 06:25 Polyethylene Glycol 3350 17 Gm Packet PO 17 gm DAILY JANINE Administration Senna/Docusate Sodium 2 tablet 09/29/20 06:00 09/30/20 06:25 Senna/Docusate Sodium 1 Tablet PO 2 tablet BID JANINE Administration Simethicone 80 mg 09/30/20 08:45 09/30/20 13:18 Simethicone 80 Mg Tablet PO 10/05/20 08:46 80 mg TIDPC JANINE Administration Timolol Maleate 1 drop 09/28/20 18:00 09/30/20 06:25 Timolol 0.5% 5ml Opth.Btl EACH EYE 1 drop BID JANINE Administration Trazodone HCl 100 - 200 mg 09/28/20 22:00 09/29/20 22:37 Trazodone 100 Mg Tablet PO 100 mg QHS JANINE Administration Tuberculin PPD 5 tu 10/06/20 10:00 Tuberculin,Purif.Prot.Deriv. 50 Tu/Ml Vial ID 10/06/20 10:01 X1 ONE Problem List Debility (Acute) Weakness (Acute) Acute delirium (Acute) Hyponatremia (Acute) Aspiration pneumonia (Acute) Anxiety (Chronic) Bipolar disorder (Chronic) DVT (deep venous thrombosis) (Chronic) Elevated troponin (Acute) Hiatal hernia (Chronic) HTN (hypertension) (Chronic) Coronary artery disease (Chronic) Vital Signs Temp Pulse Resp BP Pulse Ox 98.0 F 94 16 160/65 H 94 09/30/20 14:25 09/30/20 14:25 09/30/20 14:25 09/30/20 14:25 09/30/20 14:25 Oxygen Flow Rate (L/min) 2 Oxygen Delivery Method Room Air Weight: 72.32 kg Body Mass Index (BMI) 29.1 Sodium 128 mmol/L (136-145) L 09/29/20 05:20 Potassium 4.2 mmol/L (3.5-5.1) 09/29/20 05:20 Chloride 94 mmol/L (98-107) L 09/29/20 05:20 Carbon Dioxide 26.0 mmol/L (21.0-32.0) 09/29/20 05:20 Anion Gap 8 (5-15) 09/29/20 05:20 BUN 44 mg/dL (7-18) H 09/29/20 05:20 Creatinine 0.93 mg/dL (0.55-1.02) 09/29/20 05:20 Est GFR (MDRD) Af Amer 74 mL/min (>60) 09/29/20 05:20 Est GFR (MDRD) Non-Af 61 mL/min (>60) 09/29/20 05:20 BUN/Creatinine Ratio 47.2 RATIO (10-20) H 09/29/20 05:20 Glucose 113 mg/dL (74-106) H 09/29/20 05:20 Assessment/Plan: 1. Pain: Tylenol 1000mg PO Q6h PRN Pain 1-10. Please continue to monitor for increased/decreased pain, PRN medication usage. 2. CAD: Aspirin 81mg PO Daily, Losartan 100mg PO Daily, Lopressor 100mg PO BID. Please continue to monitor BP, pulse, S/S bleeding and bruising. *3. Seizure History: Depakote 500mg PO QHS. Please continue to monitor for S/S seizure activity, dizziness, nausea. This is a Beer's Criteria medication and can cause increased risk of falls in the elderly. Please evaluate use of this medication, thank you. 4. Glaucoma: Timolol 1 gtt OU BID. Please continue to monitor for progression of disease, routine eye exams as clinically indicated. 5. DVT Prophylaxis: Lovenox 30mg SC Daily. Pt's CrCl > 30mL/min, pharmacy changed to 40mg SC Daily per renal dosing protocol. Please monitor for S/S bleeding, bruising, renal function. 6. Insomnia: Trazodone 100-200mg PO QHS. Please continue to monitor for S/S medication effectiveness, dizziness, nausea, or blurred vision. 7. GI: Simethicone 80mg PO TIDAC. Please continue to monitor for abdominal discomfort, medication effectiveness. Psychotropic Medications: 8. Bipolar Disorder: Zyprexa 2.5mg PO QAM and 10mg PO QHS. See note in H/P regarding GDR recommendation. *9. Anxiety: Xanax 0.5mg PO TID PRN anxiety. Please consider GDR by 03/2021 if clinically indicated, thank you. Unnecessary Medications: *1. Sinemet 1 tab PO TID. No indication in PMH or H/P. Please evaluate use, thank you. Bowel Regimen: Miralax 17g PO Daily, Senna/Docusate 2 tab PO BID, Dulcolax 10mg RI Daily PRN, MOM 30mL PO Daily PRN. Please continue to monitor for increased/decreased constipation and /or diarrhea. Date of Note:: 09/30/20 - Provider Comments Provider responsibility: Provider responsible to enter orders to implement recommendations <Claude Galicia Chi - Last Filed: 09/30/20 17:48> Progress Note - Pharmacy Subjective: [] Objective: Allergies ciprofloxacin [From Cipro] Allergy (Verified 09/21/20 11:53) Itching sulfamethoxazole [From Bactrim] Allergy (Verified 09/21/20 11:53) Itching trimethoprim [From Bactrim] Allergy (Verified 09/21/20 11:53) Itching Current Medications Generic Name Dose Route Start Last Admin Trade Name Freq PRN Reason Stop Dose Admin Acetaminophen 1,000 mg 09/28/20 19:58 Acetaminophen 500 Mg Tablet PO Q6H PRN PRN Pain Score 1-10 Alprazolam 0.5 mg 09/28/20 14:47 Alprazolam 0.5 Mg Tablet PO TID PRN ANXIETY Aspirin 81 mg 09/29/20 08:00 09/30/20 08:51 Aspirin E.C. 81 Mg Tablet PO 81 mg DAILY@0800 [facility] Administration Bisacodyl 10 mg 09/28/20 15:03 Bisacodyl 10 Mg Suppository RC DAILY PRN Constipation Calamine/Phenol 1 applic 09/28/20 22:00 09/30/20 17:20 Menthol/Lanolin/Calamine/Znox 113 Gm Tube TOPICAL 1 applicatio BID JANINE Administration Protocol Carbidopa/Levodopa 1 tablet 09/30/20 06:45 09/30/20 17:19 Carbidopa/Levodopa 25/100 Tablet PO 1 tablet TIDAC JANINE Administration Divalproex Sodium 500 mg 09/28/20 22:00 09/29/20 22:37 Divalproex Sodium 250 Mg Tablet PO 500 mg QHS JANINE Administration Enoxaparin Sodium 40 mg 10/01/20 06:00 Enoxaparin 40 Mg/0.4 Ml Syringe SC DAILY@0600 JANINE Losartan Potassium 100 mg 09/28/20 22:00 09/29/20 22:37 Losartan Potassium 100 Mg Tablet PO 100 mg QHS JANINE Administration Magnesium Hydroxide 30 ml 09/28/20 19:59 Magnesium Hydroxide 30 Ml Udc PO DAILY PRN Constipation Metoprolol Tartrate 100 mg 09/28/20 18:00 09/30/20 17:19 Metoprolol Tartrate 100 Mg Tablet PO 100 mg BID JANINE Administration Nystatin 1 applic 09/29/20 06:00 09/30/20 17:20 Nystatin Powder 15gm Bottle TOPICAL 1 applicatio BID JANINE Administration Protocol Olanzapine 2.5 mg 09/29/20 06:00 09/30/20 06:24 Olanzapine 2.5 Mg Tablet PO 2.5 mg DAILY JANINE Administration Olanzapine 10 mg 09/28/20 22:00 09/29/20 22:38 Olanzapine 10 Mg Tablet PO 10 mg QHS JANINE Administration Polyethylene Glycol 17 gm 09/29/20 06:00 09/30/20 06:25 Polyethylene Glycol 3350 17 Gm Packet PO 17 gm DAILY JANINE Administration Senna/Docusate Sodium 2 tablet 09/29/20 06:00 09/30/20 17:19 Senna/Docusate Sodium 1 Tablet PO 2 tablet BID JANINE Administration Simethicone 80 mg 09/30/20 08:45 09/30/20 17:21 Simethicone 80 Mg Tablet PO 10/05/20 08:46 Not Given TIDPC [facility] Timolol Maleate 1 drop 09/28/20 18:00 09/30/20 17:20 Timolol 0.5% 5ml Opth.Btl EACH EYE 1 drop BID JANINE Administration Trazodone HCl 100 - 200 mg 09/28/20 22:00 09/29/20 22:37 Trazodone 100 Mg Tablet PO 100 mg QHS JANINE Administration Tuberculin PPD 5 tu 10/06/20 10:00 Tuberculin,Purif.Prot.Deriv. 50 Tu/Ml Vial ID 10/06/20 10:01 X1 ONE Problem List Debility (Acute) Weakness (Acute) Acute delirium (Acute) Hyponatremia (Acute) Aspiration pneumonia (Acute) Anxiety (Chronic) Bipolar disorder (Chronic) DVT (deep venous thrombosis) (Chronic) Elevated troponin (Acute) Hiatal hernia (Chronic) HTN (hypertension) (Chronic) Coronary artery disease (Chronic) Vital Signs Temp Pulse Resp BP Pulse Ox 98.0 F 94 16 160/65 H 94 09/30/20 14:25 09/30/20 17:19 09/30/20 14:25 09/30/20 14:25 09/30/20 14:25 Oxygen Flow Rate (L/min) 2 Oxygen Delivery Method Room Air Weight: 72.32 kg Body Mass Index (BMI) 29.1 Sodium 128 mmol/L (136-145) L 09/29/20 05:20 Potassium 4.2 mmol/L (3.5-5.1) 09/29/20 05:20 Chloride 94 mmol/L (98-107) L 09/29/20 05:20 Carbon Dioxide 26.0 mmol/L (21.0-32.0) 09/29/20 05:20 Anion Gap 8 (5-15) 09/29/20 05:20 BUN 44 mg/dL (7-18) H 09/29/20 05:20 Creatinine 0.93 mg/dL (0.55-1.02) 09/29/20 05:20 Est GFR (MDRD) Af Amer 74 mL/min (>60) 09/29/20 05:20 Est GFR (MDRD) Non-Af 61 mL/min (>60) 09/29/20 05:20 BUN/Creatinine Ratio 47.2 RATIO (10-20) H 09/29/20 05:20 Glucose 113 mg/dL (74-106) H 09/29/20 05:20 Assessment/Plan: Psychotropic Medications: Unnecessary Medications: Bowel Regimen: - Provider Comments Provider responsibility: Provider responsible to enter orders to implement recommendations Provider Comments to Recommendations by Pharmacy: Agree
--- NOTE | 2020-09-30 16:18 | NURSING ---
Addendum entered by Eleanor Berumen 09/30/20 17:56: UA +, ceftin started. new order to insert saline lock, ns @ 60cc/hr Original Note: incont urine small amt, st cathed for 1900cc concentrated clear straw odorous urine. dr wilson notified, new order to insert dutton if pt unable to void or bladder scan >500cc. send urine for UA c/s. pt updated.
[2020-09-30 16:25] LABS: Urine Sodium 17 mmol/L (Not Establ.)
[2020-09-30 16:36] LABS: Color, Urine Yellow (Yellow); Glucose, Dipstick Normal (Normal); Ketone-Dipstick Negative (Negative); Leukocyte Esterase-Dipstick 100 /ul (Negative); Nitrite-Dipstick Positive (Negative); Occult Blood-Urine Negative /ul (Negative); Protein-Dipstick Negative (Negative); Urine Bilirubin Dipstick Negative (Negative); Urine Clarity Clear (Clear); Urine Urobilinogen Normal (Normal)
--- NOTE | 2020-09-30 16:47 | NURSING ---
covid vaccine given to rt deltoid, no reactions noted. resting in bed
--- NOTE | 2020-09-30 16:59 | CHAPLAIN ---
Type of Pastoral Visit _x__ Initial Visit ___ Follow-up Visit ___ On-call Visit ___ General Patient Visit ___ Spiritual Assessment ___ Family Conference ___ Bereavement ___ Rapid Response ___ Code Blue ___ Other (describe below) Pastoral Care Referral From _x__ Patient ___ Family ___ Nurse ___ Physician ___ Core Machine Tender ___ Senior Interaction Designer ___ Other (describe below) Sacrament/Intervention _x__ Active listening ___ Anointing ___ Caodaism ___ Bereavement ___ Communion _x__ Lavinia exploration ___ ___ Life review _x__ Prayer ___ Reconciliation ___ Sacrament of Sick _x__ Supportive presence ___ Wedding ___ Other (describe below) Pastoral Comments patient identifies self as a Buddhist and would welcome the spiritual care support and prayer.
[2020-09-30 17:19] VITALS: PULSE 94
[2020-09-30 17:37] LABS: Osmolality, Urine 351 mOsm/KG
[2020-09-30] MEDS: 0.9% Normal Saline 1,000 ML 60 ML IV (18:22)
[2020-09-30] MEDS: CEFUROXIME AXETIL 250 MG TABLET 500 MG PO (20:49)
[2020-09-30] MEDS: Divalproex Sodium 250 MG Tablet 500 MG PO (20:50)
[2020-09-30] MEDS: Losartan Potassium 100 MG Tablet PO (20:50)
[2020-09-30] MEDS: OLANZapine 10 MG Tablet PO (20:53)
[2020-09-30] MEDS: traZODone 100 MG Tablet PO (21:32)
--- NOTE | 2020-10-01 00:19 | NURSING ---
Patient has not voided for 8 hrs. Patient bladder scanned for 999 at this time. Solares inserted at this time per Dr. Samuels. Patient with an instant return of 1550cc of clear yellow urine.
[2020-10-01 06:05] VITALS: BP 184/74; PULSE 83; RESP 16; TEMP 36.8; O2SAT 95
[2020-10-01 06:08] VITALS: BP 184/74; PULSE 83
[2020-10-01] MEDS: OLANZapine 2.5 MG Tablet PO (06:08)
[2020-10-01] MEDS: CEFUROXIME AXETIL 250 MG TABLET 500 MG PO ×2 (06:08→18:59)
[2020-10-01] MEDS: Metoprolol Tartrate 100 MG Tablet PO ×2 (06:08→17:44)
[2020-10-01] MEDS: Senna/Docusate Sodium 1 Tablet 2 TABLET PO ×2 (06:08→17:45)
[2020-10-01] MEDS: Carbidopa/Levodopa 25/100 Tablet PO ×3 (06:09→17:44)
[2020-10-01] MEDS: Menthol/Lanolin/Calamine/Znox 113 GM Tube 1 APPLIC TOPICAL ×2 (06:09→17:45)
[2020-10-01] MEDS: Polyethylene Glycol 3350 17 GM PACKET PO (06:09)
[2020-10-01] MEDS: Enoxaparin 40 MG/0.4 ML Syringe SC (06:09)
[2020-10-01] MEDS: Nystatin Powder 15gm Bottle 1 APPLIC TOPICAL ×2 (06:10→17:46)
[2020-10-01 06:19] LABS: Anion Gap 4 (5-15); BUN 28 mg/dL (7-18); BUN/Creat Ratio 41.6 RATIO (10-20); Calcium,Total 8.9 mg/dL (8.5-10.1); Chloride 95 mmol/L (98-107); Creatinine, Serum 0.67 mg/dL (0.55-1.02); EST Glomerular Filtration Rate 89 mL/min (>60); Est Glom Filt Rate - Afr Amer 108 mL/min (>60); Glucose 93 mg/dL (74-106); Potassium 3.8 mmol/L (3.5-5.1); Sodium Level 131 mmol/L (136-145)
[2020-10-01] MEDS: Aspirin E.C. 81 MG Tablet PO (08:27)
[2020-10-01] MEDS: Timolol 0.5% 5ML OPTH.BTL 1 DRP EACH EYE ×2 (08:29→17:46)
[2020-10-01 11:26] VITALS: O2SAT 91
[2020-10-01] MEDS: 0.9% Normal Saline 1,000 ML 60 ML IV (11:46)
[2020-10-01 14:01] VITALS: BP 135/58; PULSE 66; RESP 16; TEMP 36; O2SAT 94
[2020-10-01 17:44] VITALS: BP 118/70; PULSE 75
[2020-10-01] MEDS: OLANZapine 10 MG Tablet PO (22:05)
[2020-10-01] MEDS: Losartan Potassium 100 MG Tablet PO (22:05)
[2020-10-01] MEDS: Divalproex Sodium 250 MG Tablet 500 MG PO (22:06)
[2020-10-02 04:31] VITALS: BP 152/52; PULSE 75; RESP 16; TEMP 37.3; O2SAT 91
[2020-10-02] MEDS: Nystatin Powder 15gm Bottle 1 APPLIC TOPICAL ×2 (04:32→17:28)
[2020-10-02] MEDS: 0.9% Normal Saline 1,000 ML 60 ML IV ×2 (04:32→21:57)
[2020-10-02] MEDS: Menthol/Lanolin/Calamine/Znox 113 GM Tube 1 APPLIC TOPICAL ×2 (04:32→17:28)
[2020-10-02 04:33] VITALS: BP 152/52; PULSE 75
[2020-10-02] MEDS: Enoxaparin 40 MG/0.4 ML Syringe SC (04:33)
[2020-10-02] MEDS: Metoprolol Tartrate 100 MG Tablet PO ×2 (04:33→17:27)
[2020-10-02] MEDS: CEFUROXIME AXETIL 250 MG TABLET 500 MG PO ×2 (04:33→17:27)
[2020-10-02] MEDS: Senna/Docusate Sodium 1 Tablet 2 TABLET PO ×2 (04:34→17:27)
[2020-10-02] MEDS: Carbidopa/Levodopa 25/100 Tablet PO ×3 (04:34→17:28)
[2020-10-02] MEDS: OLANZapine 2.5 MG Tablet PO (04:34)
[2020-10-02] MEDS: Timolol 0.5% 5ML OPTH.BTL 1 DRP EACH EYE ×2 (04:35→17:28)
[2020-10-02 06:58] VITALS: O2SAT 95
[2020-10-02 07:43] LABS: Anion Gap 6 (5-15); BUN 21 mg/dL (7-18); BUN/Creat Ratio 29.8 RATIO (10-20); Calcium,Total 8.3 mg/dL (8.5-10.1); Chloride 98 mmol/L (98-107); EST Glomerular Filtration Rate 85 mL/min (>60); Est Glom Filt Rate - Afr Amer 102 mL/min (>60); Glucose 89 mg/dL (74-106); Potassium 3.8 mmol/L (3.5-5.1); Sodium Level 133 mmol/L (136-145)
[2020-10-02] MEDS: Aspirin E.C. 81 MG Tablet PO (08:13)
[2020-10-02 13:25] VITALS: BP 159/84; PULSE 77; RESP 16; TEMP 36.8; O2SAT 93
[2020-10-02 17:27] VITALS: PULSE 77
[2020-10-02] MEDS: Divalproex Sodium 250 MG Tablet 500 MG PO (20:55)
[2020-10-02] MEDS: Mirtazapine 15 MG Tablet 7.5 MG PO (20:55)
[2020-10-02] MEDS: Losartan Potassium 100 MG Tablet PO (20:56)
[2020-10-02] MEDS: OLANZapine 10 MG Tablet PO (20:59)
[2020-10-03] MEDS: ALPRAZolam 0.5 MG Tablet PO (00:20)
[2020-10-03 04:00] VITALS: BP 205/91; PULSE 79; RESP 15; O2SAT 91
[2020-10-03 05:47] VITALS: BP 205/91; PULSE 83
[2020-10-03] MEDS: Metoprolol Tartrate 100 MG Tablet PO ×2 (05:47→17:36)
[2020-10-03] MEDS: Enoxaparin 40 MG/0.4 ML Syringe SC (05:47)
[2020-10-03] MEDS: Carbidopa/Levodopa 25/100 Tablet PO ×3 (05:48→17:36)
[2020-10-03] MEDS: OLANZapine 2.5 MG Tablet PO (05:48)
[2020-10-03] MEDS: Senna/Docusate Sodium 1 Tablet 2 TABLET PO ×2 (05:48→17:36)
[2020-10-03] MEDS: CEFUROXIME AXETIL 250 MG TABLET 500 MG PO ×2 (05:49→17:36)
[2020-10-03] MEDS: Nystatin Powder 15gm Bottle 1 APPLIC TOPICAL ×2 (05:49→17:40)
[2020-10-03] MEDS: Menthol/Lanolin/Calamine/Znox 113 GM Tube 1 APPLIC TOPICAL ×2 (05:49→17:36)
[2020-10-03] MEDS: Timolol 0.5% 5ML OPTH.BTL 1 DRP EACH EYE ×2 (05:49→17:39)
--- NOTE | 2020-10-03 07:17 | NURSING ---
prepared am scheduled meds. crushed in applesauce. gave metoprolol first and pt acted like she couldn't swallow, had a dazed look & was attempting to spit it out. hooked up yankaur suction to assist pt. bp noted elevated this am 200/86. pox 85% on RA. 4l n/c applied. pt instructed to take deep breaths through her nose. pox slowly increased to 92% on 4l n/c. oral cavity clear of any applesauce residue. pt alert to name and place at this time. no s/s of any resp distress.
[2020-10-03 07:19] LABS: Anion Gap 7 (5-15); BUN 16 mg/dL (7-18); Calcium,Total 8.6 mg/dL (8.5-10.1); Chloride 100 mmol/L (98-107); Creatinine, Serum 0.57 mg/dL (0.55-1.02); EST Glomerular Filtration Rate 108 mL/min (>60); Est Glom Filt Rate - Afr Amer 130 mL/min (>60); Glucose 95 mg/dL (74-106); Potassium 3.9 mmol/L (3.5-5.1); Sodium Level 135 mmol/L (136-145)
--- NOTE | 2020-10-03 08:00 | NURSING ---
dr wilson reviewed labs, IVF dc'd since sodium level increasing to 135.
[2020-10-03] MEDS: Aspirin E.C. 81 MG Tablet PO (09:15)
[2020-10-03 13:20] VITALS: BP 145/65; PULSE 98; RESP 17; TEMP 36.1; O2SAT 93
[2020-10-03 17:36] VITALS: PULSE 98
[2020-10-03] MEDS: Mirtazapine 15 MG Tablet 7.5 MG PO (19:56)
[2020-10-03] MEDS: Divalproex Sodium 250 MG Tablet 500 MG PO (19:56)
[2020-10-03] MEDS: Losartan Potassium 100 MG Tablet PO (19:56)
[2020-10-03] MEDS: OLANZapine 10 MG Tablet PO (19:57)
[2020-10-04 04:00] VITALS: BP 195/86; PULSE 84; RESP 15; TEMP 36.8; O2SAT 92
[2020-10-04] MEDS: Enoxaparin 40 MG/0.4 ML Syringe SC (05:18)
[2020-10-04] MEDS: CEFUROXIME AXETIL 250 MG TABLET 500 MG PO ×2 (05:18→17:18)
[2020-10-04] MEDS: OLANZapine 2.5 MG Tablet PO (05:18)
[2020-10-04 05:19] VITALS: BP 195/86; PULSE 82
[2020-10-04] MEDS: Metoprolol Tartrate 100 MG Tablet PO ×2 (05:19→17:19)
[2020-10-04] MEDS: Carbidopa/Levodopa 25/100 Tablet PO ×3 (05:19→17:19)
[2020-10-04] MEDS: Senna/Docusate Sodium 1 Tablet 2 TABLET PO ×2 (05:19→17:19)
[2020-10-04] MEDS: Nystatin Powder 15gm Bottle 1 APPLIC TOPICAL ×2 (05:20→17:25)
[2020-10-04] MEDS: Menthol/Lanolin/Calamine/Znox 113 GM Tube 1 APPLIC TOPICAL ×2 (05:20→17:25)
[2020-10-04] MEDS: Timolol 0.5% 5ML OPTH.BTL 1 DRP EACH EYE ×2 (05:30→17:17)
[2020-10-04] MEDS: Aspirin E.C. 81 MG Tablet PO (08:21)
[2020-10-04 11:35] VITALS: PULSE 83; RESP 18
[2020-10-04] MEDS: ALPRAZolam 0.5 MG Tablet PO ×2 (12:37→21:06)
[2020-10-04 14:37] VITALS: BP 146/68; PULSE 83; RESP 16; TEMP 36.3; O2SAT 91
[2020-10-04 17:19] VITALS: BP 151/54; PULSE 103
--- NOTE | 2020-10-04 19:42 | NURSING ---
Pt son called and felt pt was a little more confused then normal this shift. Son stated that pt takes xanax TID for Anxiety. Updated Dr. Galicia and ordered entered for Xanax TID. Pt IV infiltrated removed pt tolerated well.
[2020-10-04] MEDS: Losartan Potassium 100 MG Tablet PO (21:07)
[2020-10-04] MEDS: Mirtazapine 15 MG Tablet 7.5 MG PO (21:07)
[2020-10-04] MEDS: OLANZapine 10 MG Tablet PO (21:07)
[2020-10-04] MEDS: Divalproex Sodium 250 MG Tablet 500 MG PO (21:07)
[2020-10-04] MEDS: traZODone 100 MG Tablet PO (21:13)
[2020-10-05 06:27] VITALS: BP 184/72; PULSE 87; RESP 16; TEMP 36.2; O2SAT 90
[2020-10-05] MEDS: ALPRAZolam 0.5 MG Tablet PO ×3 (06:31→20:15)
[2020-10-05] MEDS: Timolol 0.5% 5ML OPTH.BTL 1 DRP EACH EYE ×2 (06:31→17:34)
[2020-10-05] MEDS: Menthol/Lanolin/Calamine/Znox 113 GM Tube 1 APPLIC TOPICAL ×2 (06:31→17:34)
[2020-10-05] MEDS: OLANZapine 2.5 MG Tablet PO (06:32)
[2020-10-05] MEDS: Enoxaparin 40 MG/0.4 ML Syringe SC (06:32)
[2020-10-05] MEDS: Senna/Docusate Sodium 1 Tablet 2 TABLET PO ×2 (06:32→17:33)
[2020-10-05 06:33] VITALS: BP 184/72; PULSE 87
[2020-10-05] MEDS: Metoprolol Tartrate 100 MG Tablet PO ×2 (06:33→17:33)
[2020-10-05] MEDS: Carbidopa/Levodopa 25/100 Tablet PO ×3 (06:33→17:33)
[2020-10-05] MEDS: CEFUROXIME AXETIL 250 MG TABLET 500 MG PO ×2 (06:33→17:34)
[2020-10-05] MEDS: Nystatin Powder 15gm Bottle 1 APPLIC TOPICAL ×2 (06:33→17:34)
[2020-10-05] MEDS: Aspirin E.C. 81 MG Tablet PO (08:03)
[2020-10-05] MEDS: amLODIPine 5 MG Tablet PO (09:40)
[2020-10-05 09:45] VITALS: BP 134/65; PULSE 61
--- NOTE | 2020-10-05 10:12 | NURSING ---
talked to son and updated him on pt and answered son questions.
[2020-10-05 14:27] VITALS: BP 162/90; PULSE 80; RESP 16; TEMP 35.8; O2SAT 91
--- NOTE | 2020-10-05 16:45 | CASEMGMT ---
Social Work BIMS and PHQ-9 completed for MDS assessment. Courtney Johnson, MACHINE SETTER SHEET [employer] HAND
[2020-10-05 17:33] VITALS: PULSE 80
[2020-10-05] MEDS: traZODone 100 MG Tablet PO (20:10)
[2020-10-05] MEDS: Divalproex Sodium 250 MG Tablet 500 MG PO (20:15)
[2020-10-05] MEDS: Losartan Potassium 100 MG Tablet PO (20:15)
[2020-10-05] MEDS: Mirtazapine 15 MG Tablet 7.5 MG PO (20:16)
[2020-10-05] MEDS: OLANZapine 10 MG Tablet PO (20:16)
[2020-10-05] MEDS: Magnesium Hydroxide 30 ML UDC PO (20:24)
[2020-10-06 05:00] VITALS: BP 183/77; PULSE 79; RESP 16; TEMP 36.1; O2SAT 90
[2020-10-06] MEDS: Bisacodyl 10 MG Suppository RC (05:23)
[2020-10-06 05:28] VITALS: BP 183/77; PULSE 79
[2020-10-06] MEDS: Enoxaparin 40 MG/0.4 ML Syringe SC (05:28)
[2020-10-06] MEDS: ALPRAZolam 0.5 MG Tablet PO ×3 (05:28→21:07)
[2020-10-06] MEDS: Metoprolol Tartrate 100 MG Tablet PO ×2 (05:28→16:55)
[2020-10-06] MEDS: Senna/Docusate Sodium 1 Tablet 2 TABLET PO ×2 (05:29→16:55)
[2020-10-06] MEDS: Menthol/Lanolin/Calamine/Znox 113 GM Tube 1 APPLIC TOPICAL ×2 (05:29→17:05)
[2020-10-06] MEDS: Carbidopa/Levodopa 25/100 Tablet PO ×3 (05:29→16:55)
[2020-10-06] MEDS: CEFUROXIME AXETIL 250 MG TABLET 500 MG PO (05:29)
[2020-10-06] MEDS: OLANZapine 2.5 MG Tablet PO (05:30)
[2020-10-06] MEDS: Polyethylene Glycol 3350 17 GM PACKET PO (05:30)
[2020-10-06] MEDS: Timolol 0.5% 5ML OPTH.BTL 1 DRP EACH EYE ×2 (05:30→17:04)
[2020-10-06] MEDS: amLODIPine 5 MG Tablet PO (05:30)
[2020-10-06] MEDS: Nystatin Powder 15gm Bottle 1 APPLIC TOPICAL ×2 (05:30→17:05)
[2020-10-06 06:01] LABS: Absolute Lymphocyte Count 2.01 X10^3/uL (0.83-4.51); Absolute Neutrophil Count 3.8 X10^3/uL (2.0-7.7); Basophil# 0.05 X10^3/uL; Basophil% 0.7 % (0-1); Eosinophil# 0.11 X10^3/uL; Eosinophils% 1.6 % (0-5); Hematocrit 33.3 % (37-47); Hemoglobin 10.9 g/dL (12.0-15.0); Lymphocyte # 2.01 X10^3/ul (4.0); Mean Corp Hgb Conc 32.7 g/dL (32-36); Mean Corpuscular Hgb 32.9 pg (27.0-32.0); Mean Corpuscular Volume 100.6 fL (81-99); Mean Platelet Vol. 8.6 fl (6.2-12.0); Monocyte# 0.74 X10^3/uL; NRBC Flagged by Analyzer 0 % (0-5); Neutrophil # 3.77 X10^3/uL (2.7-7.7); Neutrophil % 56.3 % (47-70); Platelet Count 232 K/mm3 (150-450); RBC Distribution Width CV 13.6 % (11.6-14.6); RBC Distribution Width SD 49.9 fl (35.1-43.9); Red Blood Count 3.31 M/mm3 (4.2-5.4); White Blood Count 6.7 K/mm3 (4.4-11.0)
[2020-10-06 06:31] LABS: Anion Gap 5 (5-15); BUN 22 mg/dL (7-18); BUN/Creat Ratio 27.9 RATIO (10-20); Calcium,Total 8.7 mg/dL (8.5-10.1); Chloride 96 mmol/L (98-107); Creatinine, Serum 0.79 mg/dL (0.55-1.02); EST Glomerular Filtration Rate 74 mL/min (>60); Est Glom Filt Rate - Afr Amer 90 mL/min (>60); Glucose 85 mg/dL (74-106); Potassium 4.2 mmol/L (3.5-5.1); Sodium Level 133 mmol/L (136-145)
[2020-10-06] MEDS: Aspirin E.C. 81 MG Tablet PO (08:28)
[2020-10-06] MEDS: Tuberculin,Purif.prot.deriv. 50 TU/ML Vial 5 ML ID (11:46)
--- NOTE | 2020-10-06 13:10 | CASEMGMT ---
Social Work IDT met with patient and both sons via conference call for care plan meeting. Discussed patient's progress in therapy and nursing. Pt on modified diet and physical assist varies from x1-2. The goal is for pt to return to [facility], however, pt cannot be x2 assist to return. Pt is out of isolation 10/12. Explained Medicare benefit and encouraged to contact secondary insurance to ensure copay coverage. Will continue to follow. Courtney Johnson MSW COMMISSIONER PUBLIC WORKS
--- NOTE | 2020-10-06 15:30 | RAD_ITS ---
STUDY: X-RAY - ABDOMEN/PELVIS REASON FOR EXAM: Female, 79 years old. Constipation TECHNIQUE: Two AP supine views of the abdomen and pelvis. COMPARISON: September 29, 2020. FINDINGS: Air in loops of large and small bowel. There is mild to moderate stool. There is no demonstrated free abdominal air. The visualized liver, spleen and kidneys are grossly normal in size and morphology. Normal soft tissue structures. There is demineralization of the visualized osseous structures. There is right hip replacement. RAD/Abdomen Single View IMPRESSION: Air in loops of bowel suggesting ileus or enteritis. [id number] stool. Electronically Signed: Andrea Ceballos MD at 17:28 EST , Service support ,
--- NOTE | 2020-10-06 15:30 | RAD_ITS ---
STUDY: X-RAY CHEST REASON FOR EXAM: Female, 79 years old. Increased confusion TECHNIQUE: Single frontal view of the chest. COMPARISON: September 26, 2020 FINDINGS: There is hyperinflation of the lungs consistent with chronic obstructive lung disease (COPD). There are granulomatous calcifications. There is pleural fibrotic scarring of the left costophrenic angle. There is moderate cardiac enlargement. There is large retrocardiac hiatal hernia. Normal visualized pulmonary arteries. There is atherosclerotic calcification of the aortic arch with tortuosity. There is demineralization of the osseous structures. Normal visualized ribs, clavicles, and shoulders. There is no demonstrated abnormality of the visualized soft tissue structures of the upper abdomen. RAD/Chest PA and Lateral IMPRESSION: Large hiatal hernia. Electronically Signed: Andrea Ceballos MD at 17:50 EST , Service support ,
[2020-10-06 16:42] VITALS: BP 151/79
[2020-10-06 16:55] VITALS: BP 151/79; PULSE 73
[2020-10-06] MEDS: Magnesium Citrate 300 ML PO (21:06)
--- NOTE | 2020-10-06 21:32 | NURSING ---
Addendum entered by Avis Quezada 10/07/20 02:41: Pt also refusing to take Mag Citrate. Original Note: This RN in pt room to administer HS medications. Pt took bite of applesauce with crush dose of Xanax in it; but refused the remaining HS medications after much encouragement and redirect.
[2020-10-07 00:23] LABS: Bacteria 0 SEEN /hpf (None Seen); Mucous, Urine 0 SEEN /hpf (<or=2+); Squamous Epithelial Cells - UA 0 SEEN /hpf (5-10)
[2020-10-07 00:24] LABS: Color, Urine Yellow (Yellow); Glucose, Dipstick Normal (Normal); Ketone-Dipstick 50 mg/dl (Negative); Leukocyte Esterase-Dipstick 500 /ul (Negative); Nitrite-Dipstick Negative (Negative); Occult Blood-Urine 250 /ul (Negative); Protein-Dipstick 30 mg/dl (Negative); Urine Bilirubin Dipstick Negative (Negative); Urine Clarity Sl. Cloudy (Clear); Urine Urobilinogen Normal (Normal)
[2020-10-07 00:31] LABS: Red Blood Cells-Urine 0-5 SEEN /hpf (0-5); White Blood Cells 5-10 SEEN /hpf (0-5)
--- NOTE | 2020-10-07 02:00 | NURSING ---
Dr. Galicia notified of ua results, new order for Cefdiner.
--- NOTE | 2020-10-07 02:26 | NURSING ---
This RN in pt room to give first PO Omnicef dose at this time per order. Pt refusing to take medication after much encouragement and multiple attempts.
[2020-10-07 02:28] VITALS: BP 166/70; PULSE 96; RESP 18; TEMP 37.1; O2SAT 91
[2020-10-07 08:35] VITALS: BP 158/73; PULSE 89
[2020-10-07] MEDS: Metoprolol Tartrate 100 MG Tablet PO ×2 (08:35→17:28)
[2020-10-07] MEDS: amLODIPine 5 MG Tablet PO (08:36)
[2020-10-07] MEDS: Polyethylene Glycol 3350 17 GM PACKET PO (08:36)
[2020-10-07] MEDS: OLANZapine 2.5 MG Tablet PO (08:37)
[2020-10-07] MEDS: Senna/Docusate Sodium 1 Tablet 2 TABLET PO ×2 (08:37→17:28)
[2020-10-07] MEDS: Aspirin E.C. 81 MG Tablet PO (08:37)
[2020-10-07] MEDS: Carbidopa/Levodopa 25/100 Tablet PO ×3 (08:37→17:28)
[2020-10-07] MEDS: Menthol/Lanolin/Calamine/Znox 113 GM Tube 1 APPLIC TOPICAL ×2 (08:38→17:28)
[2020-10-07] MEDS: Nystatin Powder 15gm Bottle 1 APPLIC TOPICAL ×2 (08:41→17:28)
[2020-10-07] MEDS: ALPRAZolam 0.5 MG Tablet PO ×3 (08:48→20:10)
[2020-10-07 08:52] VITALS: BP 158/73; PULSE 89
[2020-10-07] MEDS: Timolol 0.5% 5ML OPTH.BTL 1 DRP EACH EYE ×2 (09:52→17:40)
--- NOTE | 2020-10-07 10:45 | MDS.RN ---
Information for the mds was obtained from review of the clinical record, interview of resident, staff, and direct observation of resident's care.
[2020-10-07] MEDS: Ceftriaxone 1 GM/50 ML BAG IV (12:39)
[2020-10-07 14:02] VITALS: BP 129/57; PULSE 70; RESP 16; TEMP 36.4; O2SAT 90
[2020-10-07 17:28] VITALS: BP 138/72; PULSE 78
[2020-10-07] MEDS: Divalproex Sodium 250 MG Tablet 500 MG PO (20:09)
[2020-10-07] MEDS: Mirtazapine 15 MG Tablet 7.5 MG PO (20:10)
[2020-10-07] MEDS: OLANZapine 10 MG Tablet PO (20:10)
[2020-10-07] MEDS: Losartan Potassium 100 MG Tablet PO (20:11)
[2020-10-07] MEDS: traZODone 100 MG Tablet PO (20:13)
[2020-10-08] MEDS: ALPRAZolam 0.5 MG Tablet PO ×2 (05:08→14:31)
[2020-10-08] MEDS: OLANZapine 2.5 MG Tablet PO (05:08)
[2020-10-08 05:09] VITALS: PULSE 70
[2020-10-08] MEDS: Metoprolol Tartrate 100 MG Tablet PO (05:09)
[2020-10-08] MEDS: amLODIPine 5 MG Tablet PO (05:09)
[2020-10-08] MEDS: Senna/Docusate Sodium 1 Tablet 2 TABLET PO (05:09)
[2020-10-08] MEDS: Menthol/Lanolin/Calamine/Znox 113 GM Tube 1 APPLIC TOPICAL ×2 (05:11→16:50)
[2020-10-08] MEDS: Polyethylene Glycol 3350 17 GM PACKET PO (05:11)
[2020-10-08] MEDS: Nystatin Powder 15gm Bottle 1 APPLIC TOPICAL ×2 (05:12→16:51)
[2020-10-08] MEDS: Timolol 0.5% 5ML OPTH.BTL 1 DRP EACH EYE ×2 (05:13→16:48)
[2020-10-08 05:14] VITALS: BP 162/64; PULSE 70; RESP 18; TEMP 36.5; O2SAT 92
[2020-10-08 05:53] LABS: Hematocrit 32.5 % (37-47); Hemoglobin 10.6 g/dL (12.0-15.0)
[2020-10-08] MEDS: Aspirin E.C. 81 MG Tablet PO (08:26)
[2020-10-08] MEDS: Carbidopa/Levodopa 25/100 Tablet PO ×2 (08:26→11:41)
[2020-10-08 10:00] VITALS: PULSE 76; RESP 16; O2SAT 96
[2020-10-08] MEDS: Ceftriaxone 1 GM/50 ML BAG IV (11:40)
[2020-10-08 14:01] VITALS: BP 122/64; PULSE 69; RESP 16; TEMP 35.9; O2SAT 95
--- NOTE | 2020-10-08 15:28 | PCA ---
Patient restless, a little anxious, confused this afternoon. Continues to pull at cath and IV tubing. Talking about pickles, grape jelly and carlos enrique goats and staff not understanding what she is trying to tell us. Assisted to BSC X2 assist. No results. Much 1:1 spent with patient. Patient did fold some wash cloths. Patient resting in reclining chair with feet elevated. RN updated
--- NOTE | 2020-10-08 16:22 | CASEMGMT ---
Social Work Sent updated clinicals to [facility]QUE[facility] to inquire about possible return. Spoke with Kristine, chef french, and pt requires too much assistance physically and cognitively, thus , at this time, she is unable to return. Explained SW to contact sons to discuss alternative DC plans, but if pt recovers and is able to return, will notify Kristine. Courtney Johnson ,MINUTE CLERK MARKING CLERK
[2020-10-08 18:00] VITALS: BP 156/80; PULSE 77; RESP 18; TEMP 35.9; O2SAT 91
--- NOTE | 2020-10-08 18:00 | NURSING ---
Report called to ED, spoke with Trice.
--- NOTE | 2020-10-08 18:01 | NURSING ---
Notified bart Tristan, unable to reach bart Quinones.
--- NOTE | 2020-10-08 22:43 | DCINST_ITS ---
- Discharge Diagnoses Current Active Problems: Current Active and Chronic Problems Debility (Chronic) Weakness (Acute) Acute delirium (Acute) Hyponatremia (Acute) Anxiety (Chronic) Bipolar disorder (Chronic) DVT (deep venous thrombosis) (Chronic) Elevated troponin (Acute) Hiatal hernia (Chronic) HTN (hypertension) (Chronic) Coronary artery disease (Chronic) You will use the following diet at home:: No restrictions, Regular Your food should be the consistency of: Regular Your liquids should be the consistency of: Regular/Thin Discharge Activity: Return to Normal Activity, May Shower, Use Walker Weight Bearing Status: Weight bearing as tolerated Call your doctor if you observe: Fever of 101 or Higher, Inability to urinate, Inability to have a bowel movement, Shortness of breath, Chest pain, Uncontrolled pain Allergies/Adverse Reactions: Allergies ciprofloxacin [From Cipro] Allergy (Verified 10/08/20 18:33) Itching sulfamethoxazole [From Bactrim] Allergy (Verified 10/08/20 18:33) Itching trimethoprim [From Bactrim] Allergy (Verified 10/08/20 18:33) Itching Medications to take at Discharge Olanzapine [Zyprexa] 2.5 mg PO DAILY 08/12/16 Olanzapine [Zyprexa] 10 mg PO QHS 08/12/16 Senna [Senokot] 2 tablet PO BID 08/12/16 Timolol 0.5% [Timoptic] 1 drop EACH EYE BID 01/16/17 ALPRAZolam [Xanax] 0.5 mg PO TID PRN #9 tablet 01/19/17 Divalproex Sodium 500 mg PO QHS 09/21/20 Metoprolol Tartrate [Lopressor (beta casa)] 100 mg PO BID 09/21/20 Trazodone HCl 100 - 200 mg PO QHS 09/21/20 Aspirin E.C. [Ecotrin] 81 mg PO DAILY@0800 09/28/20 Amlodipine [Norvasc] 5 mg PO DAILY 10/08/20 Bisacodyl 10 mg RC DAILY PRN PRN 10/08/20 Carbidopa/Levodopa [Carbidopa-Levo ER 25-100 Tab] 1 tab PO TID 10/08/20 Losartan Potassium [Cozaar] 100 mg PO DAILY 10/08/20 Magnesium Hydroxide [Milk Of Magnesia] 30 ml PO DAILY PRN PRN 10/08/20 Menthol/Zinc Oxide [Calmoseptine Ointment] 71 gm TP BID 10/08/20 Mirtazapine 7.5 mg PO QHS 10/08/20 Nystatin [Nystop] 1 applic TP BID 10/08/20 Polyethylene Glycol 3350 [Miralax] 17 gm PO DAILY 10/08/20 Primary Care Physician: Edu Hdz MD [Primary Care Provider] - Please follow up with your Primary Care Physician in: 1 week. Test Results: Test results from this visit will be discussed in further detail at your follow- up appointment, if applicable. Please Follow Up With: Edu Hdz MD When: 1-2 weeks after DC from TCU Proposed Discharge Date: 10/08/20
--- NOTE | 2020-10-08 22:45 | PCM.DC.SUM ---
Discharge Date and Diagnosis - Problem List Patient Problems: Active and Suspected Problems Weakness (Acute) Acute delirium (Acute) Hyponatremia (Acute) Aspiration pneumonia (Suspected) Elevated troponin (Acute) Date of Admission: 10/08/20 Date of Discharge: 10/08/20 - Primary Discharge Diagnosis Acute Problems: Active Problems Weakness (Acute) Acute delirium (Acute) Hyponatremia (Acute) Elevated troponin (Acute) Suspected Problems: Suspected Problems Aspiration pneumonia (Suspected) - Secondary Discharge Diagnosis Chronic Problems: Chronic Problems Debility (Chronic) Anxiety (Chronic) Bipolar disorder (Chronic) DVT (deep venous thrombosis) (Chronic) Hiatal hernia (Chronic) HTN (hypertension) (Chronic) Bipolar disorder (Chronic) Anxiety disorder (Chronic) History of DVT (deep vein thrombosis) (Chronic) Coronary artery disease (Chronic) Hospital Course and Treatment Operations: None Procedures: None Summary of Care Provided: The patient is a 79 year old Female with below past medical history hospitalized for metabolic encephalopathy secondary to hyponatremia, complicated by aspiration pneumonia, elevated troponin, admitted to TCU with debility, here for rehabilitation, strengthening, prior to discharge to [place], [place]. 10/08/2020 Resident had change in mental status, unable to swallowing, drooling, leaning to one side. Concern with neurologic event. Discharge to [facility] Emergency Department for evaluation, admission to hospital. Patient Problems: Active and Suspected Problems Weakness (Acute) Acute delirium (Acute) Hyponatremia (Acute) Aspiration pneumonia (Suspected) Elevated troponin (Acute) - Physical Exam Vitals/I&O's: Vital Signs Temp Pulse Resp BP Pulse Ox 96.7 F L 77 18 156/80 H 91 10/08/20 18:00 10/08/20 18:00 10/08/20 18:00 10/08/20 18:00 10/08/20 18:00 Oxygen Flow Rate (L/min) 2 Oxygen Delivery Method Room Air Weight: 66.678 kg Body Mass Index (BMI) 29.1 Intake and Output for Last 24 Hours 10/06/20 10/07/20 10/08/20 23:59 23:59 23:59 Intake Total 740 / 740 766.75 / 766.75 450 / 450 Output Total 1250 / 1250 500 / 500 2049 / 2049 Balance -510 / -510 266.75 / 266.75 -1600 / -1600 Microbiology Past 72 Hours 10/07/20 00:15 Urine Catheter - [place] Urine Culture - Preliminary Culture exhibits no growth. Laboratory Results 10/08/20 05:25: Hgb 10.6 L, Hct 32.5 L Discharge Diet: No Restrictions Discharge Activity: Return to Normal Activity, May Shower, Use Walker Weight Bearing Status: Weight bearing as tolerated Call your doctor if you observe: Fever of 101 or Higher, Inability to urinate, Inability to have a bowel movement, Shortness of breath, Chest pain, Uncontrolled pain Home Medications: Medications to take at Discharge Olanzapine [Zyprexa] 2.5 mg PO DAILY 08/12/16 Olanzapine [Zyprexa] 10 mg PO QHS 08/12/16 Senna [Senokot] 2 tablet PO BID 08/12/16 Timolol 0.5% [Timoptic] 1 drop EACH EYE BID 01/16/17 ALPRAZolam [Xanax] 0.5 mg PO TID PRN #9 tablet 01/19/17 Divalproex Sodium 500 mg PO QHS 09/21/20 Metoprolol Tartrate [Lopressor (beta casa)] 100 mg PO BID 09/21/20 Trazodone HCl 100 - 200 mg PO QHS 09/21/20 Aspirin E.C. [Ecotrin] 81 mg PO DAILY@0800 09/28/20 Amlodipine [Norvasc] 5 mg PO DAILY 10/08/20 Bisacodyl 10 mg RC DAILY PRN PRN 10/08/20 Carbidopa/Levodopa [Carbidopa-Levo ER 25-100 Tab] 1 tab PO TID 10/08/20 Losartan Potassium [Cozaar] 100 mg PO DAILY 10/08/20 Magnesium Hydroxide [Milk Of Magnesia] 30 ml PO DAILY PRN PRN 10/08/20 Menthol/Zinc Oxide [Calmoseptine Ointment] 71 gm TP BID 10/08/20 Mirtazapine 7.5 mg PO QHS 10/08/20 Nystatin [Nystop] 1 applic TP BID 10/08/20 Polyethylene Glycol 3350 [Miralax] 17 gm PO DAILY 10/08/20 Primary Care Physician: Edu Hdz MD [Primary Care Provider] - Please follow up with your Primary Care Physician in: 1 week. Please Follow Up With: Edu Hdz MD When: 1-2 weeks after DC from TCU Disposition: Acute care Hospital Minutes spent on discharge:: 30 Patient Condition:: Guarded Medical Necessity - Tobacco Use Smoking Status: Former smoker Tobacco Use: Cigarettes Meaningful Use Info Meaningful Use Diagnoses (Choose all that apply): None applicable
== END 2020-10-08 18:01 | disposition short-term general hospital (02) | DRG 645 ==
LOC: TCU 14:31
PROVIDERS: Admitting Provider Family Medicine Geriatric Medicine; PCP Family Medicine; Visit Provider Family Medicine Geriatric Medicine
DX: E22.2 Syndrome of inappropriate secretion of antidiuretic hormone (principal); F31.9 Bipolar disorder, unspecified; G40.909 Epilepsy, unspecified, not intractable, without status epilepticus; I25.10 Atherosclerotic heart disease of native coronary artery without angina pectoris; F41.9 Anxiety disorder, unspecified; H40.9 Unspecified glaucoma; Z87.891 Personal history of nicotine dependence; Z86.718 Personal history of other venous thrombosis and embolism; I10 Essential (primary) hypertension; K44.9 Diaphragmatic hernia without obstruction or gangrene; Z79.899 Other long term (current) drug therapy
CPT/HCPCS: 36415; 71046; 74018; 80048; 81001; 81002; 83930; 83935; 84300; 85014; 85018; 85025; 87086; 87426; 87635; 92507; 92523; 92526; 92610; 97110; 97116; 97162; 97166; 97530; 97535; 97802; J7030; J7050; U0002

== ENCOUNTER 2020-09-30 15:14 | Outpatient (RCR) | payer MEDICARE, OTHER, SELFPAY ==
[2020-09-21 11:47] VITALS: BMI 25.0
== END 2020-09-30 23:59 ==
LOC: IMMUN 15:14
PROVIDERS: PCP Family Medicine; Referring Provider Family Medicine; Visit Provider Family Medicine
DX: Z23 Encounter for immunization (principal)
CPT/HCPCS: 0012A

== ENCOUNTER 2020-10-08 18:10 | Inpatient (IN) | payer MEDICARE, OTHER, SELFPAY ==
[2020-09-21 11:47] VITALS: BMI 25.0
[2020-10-08] VITALS (17 sets, daily range): BP systolic 143–220; BP diastolic 73–113; PULSE 68–113; RESP 16–24; TEMP -13.7–36.8; O2SAT 85–100; BMI 26.2; BMI 24.3
--- NOTE | 2020-10-08 18:16 | CT_ITS ---
We are attempting to reach an attending provider to discuss findings. An addendum with communication details will be sent when the communication is complete. STUDY: CT HEAD STROKE PROTOCOL W/O CONTRAST INJECTION REASON FOR EXAM: Female, 79 years old. Neuro deficit, acute, stroke suspected TECHNIQUE: Transaxial CT imaging of the brain was performed without administration of intravenous contrast material. Individualized dose optimization techniques were used for this CT. COMPARISON: 09/21/2020 FINDINGS: Normal soft tissue structures. There is hyperostosis frontalis internus. There is mild cerebral atrophy with widening of the extra-axial spaces and ventricular dilatation. There are areas of decreased attenuation within the white matter tracts of the supratentorial brain, consistent with microvascular disease changes. Normal basal ganglia and thalami. Normal brainstem. There is mild cerebellar atrophy. There is no intracranial hemorrhage. There are no findings of an acute ischemic infarction. Normal visualized paranasal sinuses. ASPECT score: 10 CT/STROKE Brain/Head without Cont IMPRESSION: Chronic involutional changes of the brain. No acute findings or changes since previous study. Electronically Signed: Scott Stoner MD at 18:32 EST , Service support ,
--- NOTE | 2020-10-08 18:16 | EKG12_ITS ---
Test Reason : NEURO Blood Pressure : / mmHG Vent. Rate : 069 BPM Atrial Rate : 069 BPM P-R Int : 194 ms QRS Dur : 122 ms QT Int : 406 ms P-R-T Axes : 049 -40 070 degrees QTc Int : 435 ms Normal sinus rhythm Left axis deviation Left ventricular hypertrophy with QRS widening and repolarization abnormality Abnormal ECG Confirmed by CHARLES HAMEED, LEXI ([id number]), state editor KEVIN ANN ([id number]) on 10/12/2020 12:30:09 PM Referred By: ANU Confirmed By:LEXI SOTO MD
--- NOTE | 2020-10-08 18:17 | ED.DCSUM_ITS ---
History of Present Illness Chief Complaint: Neuro S/Sx Informant: Patient, - - RN on rehab Onset: Hours - 1-2, - - LKW 1630; problem occured 1645 Context: Sudden Onset Timing: Continuous Quality and Location: - - Drooling and unable to swallow Onset: When trying to get the patient to swallow a pill Current Severity: Severe Maximum Severity: Severe Worsened by: Trying to swallow Relieved by: Nothing Associated Symptoms: Negative for: Headache, Vomiting, Chest Pain Narrative: Limited history available from this patient who is confused at baseline. Apparently she has been saying off the wall things for the last several days. Today in rehab, they noticed something was wrong when they were trying to give her some pills that she normally can swallow well but instead, she was drooling out the side of her mouth and was not able to swallow. They tried multiple times. They discussed with the physician of record who advised they sent her to the ER to evaluate for possible stroke. They state that at 1630, staff gave her something to swallow and she was able. - Past Medical History (1) Aspiration pneumonia Status: Suspected (2) Debility Status: Chronic (3) Anxiety Status: Chronic (4) Anxiety disorder Status: Chronic (5) Bipolar disorder Status: Chronic (6) Coronary artery disease Status: Chronic (7) DVT (deep venous thrombosis) Status: Chronic (8) HTN (hypertension) Status: Chronic (9) Hiatal hernia Status: Chronic Past Medical History - Allergies and Home Meds Allergies/Adverse Reactions: Allergies ciprofloxacin [From Cipro] Allergy (Verified 10/08/20 18:33) Itching sulfamethoxazole [From Bactrim] Allergy (Verified 10/08/20 18:33) Itching trimethoprim [From Bactrim] Allergy (Verified 10/08/20 18:33) Itching Primary Care Physician: Edu Hdz MD [Primary Care Provider] - Surgical History: angioplasty, hysterectomy, total hip arthroplasty Lives: - - rehab currently Smoking Status: Former smoker - Family History Paternal Family History: Reports: - - Denies known paternal medical history including cardiac history. Maternal Family History: Reports: - - Denies known maternal medical history including cardiac history. Review of Systems ROS: Unable to Obtain - Due to confusion STROKE Vital Signs/Narrative: Vital Signs Temp 10/08/20 18:11 97.2 F L - NIHSS Initial 1a Level of Consciousness: 0 1b LOC Questions (Score 2 if aphasic/stupor): 0 1c LOC Commands (Only score 1st attempt): 0 2 Best Gaze (If aphasic, use reflexive mvmts.): 0 3 Visual: 0 4 Facial Palsy: 0 5 Motor Arm Right (UN = amputation/fusion): 0 5 Motor Arm Left: 0 6 Motor Leg Right: 2 6 Motor Leg Left: 3 7 Limb ataxia (Only + if out of proportion): 0 8 Sensory (Aphasia/stupor=0 or 1, coma=2): 0 9 Best Language: 2 10 Dysarthria (mute, coma=2, intubated=UN): 0 11 Extinction and Inattention (only scored if +): 0 Total Score: 7 2nd Follow up 1a Level of Consciousness: 0 1b LOC Questions (Score 2 if aphasic/stupor): 0 1c LOC Commands (Only score 1st attempt): 0 2 Best Gaze (If aphasic, use reflexive mvmts.): 0 3 Visual: 0 4 Facial Palsy: 0 5 Motor Arm Right (UN = amputation/fusion): 0 5 Motor Arm Left: 0 6 Motor Leg Right: 0 6 Motor Leg Left: 0 7 Limb ataxia (Only + if out of proportion): 0 8 Sensory (Aphasia/stupor=0 or 1, coma=2): 0 9 Best Language: 1 10 Dysarthria (mute, coma=2, intubated=UN): 0 11 Extinction and Inattention (only scored if +): 0 Total Score: 1 General: Well nourished, Well developed, - - NAD Head: Normocephalic, Atraumatic Eyes: Perrl, EOMI ENT: Moist mucous membranes, No rhinorrhea Neck: Supple, Nontender Cardiovascular: Regular rate, Regular rhythm, No murmurs Respiratory: No distress, Chest nontender, Rales - Coarse breath sounds bila terally without respiratory distress Abdomen: Soft, Nontender, Nondistended, Normal bowel sounds Back: Nontender, Normal Inspection Extremities: Nontender, No edema Skin: Normal color, No rash, - - Large ecchymotic area abdominal wall nontender Neurological: Alert, Cranial nerves II-XII grossly intact, Normal Sensation, Disoriented, Weakness - In both legs see above Psychological: Normal affect, Normal Mood Diagnostic/Tx/Re-eval Impressions Brain CT 10/08/20 18:16 IMPRESSION: Chronic involutional changes of the brain. No acute findings or changes since previous study. Electronically Signed: Scott Stoner MD at 18:32 EST , Service support , ADDENDUM: 10/08/20 1843 IMPRESSION: Chronic involutional changes of the brain. No acute findings or changes since previous study. N.B. : The above information has been verbally conveyed by Scott Stoner MD to Andrea Glass MD, , on 10/08/2020 18:36:56 (ET). Electronically Signed: Scott Stoner MD at 18:32 EST , Service support , Head/Neck CTA 10/08/20 18:37 IMPRESSION: No acute thrombosis, occlusions, or hemodynamically significant stenosis. N.B. : The above information has been verbally conveyed by Scott Stoner MD to Andrea Glass on 10/08/2020 19:06:21 (ET). Electronically Signed: Scott Stoner MD at 19:07 EST , Service support , ADDENDUM: 10/08/20 1914 IMPRESSION: No acute thrombosis, occlusions, or hemodynamically significant stenosis. N.B. : The above information has been verbally conveyed by Scott Stoner MD to Andrea Glass on 10/08/2020 19:06:21 (ET). Electronically Signed: Scott Stoner MD at 19:07 EST , Service support , Chest X-Ray 10/08/20 18:47 IMPRESSION: Cannot exclude atelectasis or infiltrate and/or small effusion in the left lung base. Electronically Signed: Scott Stoner MD at 19:18 EST , Service support , 10/08/20 18:16 STROKE Brain/Head without Cont [CT] Stat 10/08/20 18:37 CTA Head AND Neck W/ Contrast [CT] Stat 10/08/20 18:47 Chest 1 View [RAD] Stat Laboratory Results 10/08/20 10/08/20 10/08/20 18:25 18:28 18:28 WBC 13.0 H RBC 3.37 L Hgb 11.4 L Hct 34.3 L MCV 101.8 H MCH 33.8 H MCHC 33.2 RDW Std Deviation 50.9 H RDW Coeff of Pelon 14.0 Plt Count 244 MPV 9.0 Immature Gran % (Auto) 0.500 Neut % (Auto) 78.9 H Lymph % (Auto) 11.3 L Cocke % (Auto) 7.8 Eos % (Auto) 1.2 Baso % (Auto) 0.3 Absolute Neuts (auto) 10.3 H Absolute Lymphs (auto) 1.47 Nucleated RBC % 0 PT Cancelled INR Cancelled APTT Cancelled Sodium Potassium Chloride Carbon Dioxide Anion Gap BUN Creatinine Estim Creat Clear Calc Est GFR (MDRD) Af Amer Est GFR (MDRD) Non-Af BUN/Creatinine Ratio Glucose Calcium Troponin I POC Glucose 97 10/08/20 10/08/20 18:28 19:00 WBC RBC Hgb Hct MCV MCH MCHC RDW Std Deviation RDW Coeff of [place]on Plt Count MPV Immature Gran % (Auto) Neut % (Auto) Lymph % (Auto) Cocke % (Auto) Eos % (Auto) Baso % (Auto) Absolute Neuts (auto) Absolute Lymphs (auto) Nucleated RBC % PT 13.5 INR 1.1 APTT 26.3 Sodium 132 L Potassium 4.2 Chloride 97 L Carbon Dioxide 32.0 Anion Gap 3 L BUN 22 H Creatinine 0.89 Estim Creat Clear Calc 44.61 Est GFR (MDRD) Af Amer 78 Est GFR (MDRD) Non-Af 65 BUN/Creatinine Ratio 24.7 H Glucose 92 Calcium 8.9 Troponin I 0.089 H POC Glucose Chest X-Ray - ED: 1 View, Read by ED Physician, Left Infiltrate - vs effusion - Rhythm Strip Rhythm Strip: Sinus Rhythm Rate: 69 Ectopy: None - EKG Initial EKG Interpretation: Sinus Rhythm, No Acute Injury Pattern, - - left axis. LVH. - Medical Decision Making Stroke Team Activated: Yes Was Patient considered for Endovascular Intervention?: No - Negative CTA IV Alteplase (t-PA) Administered: No - See below This patient is acting aphasic, however after several discussions with the nurses caring for her on rehab, all we can tell is that she has been talking out of her head and saying nonsensical things for the last couple days, so the onset of the aphasia is unknown. She is barely asymmetrically weak in her legs, her arms are symmetrically strong, she answers age and month correctly and does not have dysarthria, her airway is intact and she is handling her secretions at this time, and after discussing with stroke neurology, we have decided that she is not an IV TPA candidate because of this and the fact that we are unable to prove that she has an acute disabling neurologic deficit that is within the 4- hour window. He does recommend CT angiography, and if negative admitting for fu rther evaluation and work-up, in addition to treatment of any aspiration pneumonitis that may be present, which I am suspicious of. On my interpretation, 1 view chest x-ray does show the possibility of consolidation in the left base. She was covered with Unasyn for possible aspiration pneumonitis. CT angiography as above is negative. Consistent with neurology recommendation, patient will be admitted for further evaluation work-up. Repeat NIHSS as above; pt holding up all 4 ext's equally and w/o drift. She names items correctly, but still describes a picture/scenario w/ things that do not make sense (ex-w/ woman washing dishes and kids trying to get into cookie jar, pt states there's a sweater in there). Critical care time (excluding procedures): 30-74 minutes - 35 minutes including time spent discussing with patient and consultants, arranging admission, performing direct patient care and reevaluation at the bedside, and documentation. Time exclusive of procedures. ED Disposition - Plan for ED Patient: Disposition: Acute Care Hospital [facility] Diagnosis: Dysphagia, Aphasia Referrals: Edu Hdz MD [Primary Care Provider] -
[2020-10-08 18:31] LABS: Bedside Glucose 97 mg/dL (70-110)
--- NOTE | 2020-10-08 18:32 | ED.RN ---
TCU NURSE REPORTS PTS MENTATION IS CONFUSED AND MENTATION COMES AND GOES ON NORMAL BASES.
--- NOTE | 2020-10-08 18:37 | CT_ITS ---
STUDY: CTA HEAD AND NECK WITH CONTRAST REASON FOR EXAM: Female, 79 years old. Acute neurologic deficit RADIATION DOSAGE (If Supplied By Facility): CTDIvol = ( 19.42 ) mGy, DLP = ( 480.63 ) mGycm TECHNIQUE: CT angiography was performed with a multi-detector CT scanner. Data acquisition was obtained from the skull base through the vertex following intravenous administration of IV 100mL Isovue-370. MIP images were reconstructed from the axial data set. Post-processing of the angiographic images was performed, with multiplanar reformation and 3D reconstruction. Individualized dose optimization techniques were used for this CT. COMPARISON: No relevant priors. FINDINGS: Normal bilateral petrous carotid arteries. There is calcified plaque formation of the right cavernous carotid artery, with a mild stenosis (less than 50%). There is calcified plaque formation of the left cavernous carotid artery, with a mild stenosis (less than 50%). Normal right A1 segments of the anterior cerebral artery. Normal left A1 segments of the anterior cerebral artery. Normal intact anterior communicating artery (ACOM). Normal bilateral A2 segments of the anterior cerebral arteries. Normal right M1 and M2 segments of the middle cerebral arteries, with a normal M1 bifurcation. Normal left M1 and M2 segments of the middle cerebral arteries, with a normal M1 bifurcation. Normal right posterior communicating artery (PCOM). Normal left posterior communicating artery (PCOM). Normal bilateral vertebral arteries. Normal basilar artery with a normal basilar bifurcation. The visualized bilateral superior cerebellar (SCA) arteries are normal. Normal bilateral P1, P2 and visualized P3 segments of the posterior cerebral arteries. There is no demonstrated aneurysm of the [place]. There is no demonstrated abnormality of the visualized brain. AORTIC ARCH: Normal visualized aortic arch. Normal origins of the brachiocephalic, left common carotid, and left subclavian arteries. RIGHT CAROTID ARTERIES: There is atherosclerotic tortuous elongation of the right common carotid artery. There is moderate atherosclerotic plaque formation with mild narrowing of the right carotid bulb. There is moderate atherosclerotic plaque formation of the origin of the right internal carotid artery with less than 50% cross sectional diameter stenosis. There is atherosclerotic tortuous elongation of the cervical portion of the right internal carotid artery. Normal origin of the right external carotid artery (ECA). LEFT CAROTID ARTERIES: There is atherosclerotic tortuous elongation of the left common carotid artery. Normal left common carotid bulb. Normal origin of the left internal carotid (ICA) artery without a hemodynamically significant stenosis. There is atherosclerotic tortuous elongation of the cervical portion of the left internal carotid artery. Normal origin of the left external carotid artery (ECA). VERTEBRAL ARTERIES: Normal bilateral vertebral arteries. CT/CTA Head AND Neck W/ Contrast IMPRESSION: No acute thrombosis, occlusions, or hemodynamically significant stenosis. N.B. : The above information has been verbally conveyed by Scott Stoner MD to Andrea Glass on 10/08/2020 19:06:21 (ET). Electronically Signed: Scott Stoner MD at 19:07 EST , Service support ,
[2020-10-08 18:42] LABS: Absolute Lymphocyte Count 1.47 X10^3/uL (0.83-4.51); Absolute Neutrophil Count 10.3 X10^3/uL (2.0-7.7); Basophil# 0.04 X10^3/uL; Basophil% 0.3 % (0-1); Eosinophil# 0.16 X10^3/uL; Eosinophils% 1.2 % (0-5); Hematocrit 34.3 % (37-47); Hemoglobin 11.4 g/dL (12.0-15.0); Lymphocyte # 1.47 X10^3/ul (4.0); Lymphocyte % 11.3 % (19-41); Mean Corp Hgb Conc 33.2 g/dL (32-36); Mean Corpuscular Hgb 33.8 pg (27.0-32.0); Mean Corpuscular Volume 101.8 fL (81-99); Monocyte# 1.02 X10^3/uL; Monocyte% 7.8 % (0-10); NRBC Flagged by Analyzer 0 % (0-5); Neutrophil # 10.26 X10^3/uL (2.7-7.7); Neutrophil % 78.9 % (47-70); Platelet Count 244 K/mm3 (150-450); RBC Distribution Width SD 50.9 fl (35.1-43.9); Red Blood Count 3.37 M/mm3 (4.2-5.4)
--- NOTE | 2020-10-08 18:47 | RAD_ITS ---
STUDY: X-RAY CHEST REASON FOR EXAM: Female, 79 years old. Neuro deficit, acute, stroke suspected TECHNIQUE: Single AP portable view of the chest. COMPARISON: 10/06/2020. FINDINGS: Right lung is clear. Density in the lower left lung is consistent with the patient''s previously described hiatal hernia. Atelectasis or infiltrate in the left lung base and/or small effusion, cannot be excluded. There is moderate cardiac enlargement. Normal mediastinum and daniel. Normal visualized pulmonary arteries. There is atherosclerotic calcification of the aortic arch with tortuosity. There are diffuse degenerative changes of the visualized thoracic spine. Normal visualized ribs, clavicles, and shoulders. There is no demonstrated abnormality of the visualized soft tissue structures of the upper abdomen. RAD/Chest 1 View IMPRESSION: Cannot exclude atelectasis or infiltrate and/or small effusion in the left lung base. Electronically Signed: Scott Stoner MD at 19:18 EST , Service support ,
[2020-10-08 18:52] LABS: Anion Gap 3 (5-15); BUN 22 mg/dL (7-18); BUN/Creat Ratio 24.7 RATIO (10-20); Calcium,Total 8.9 mg/dL (8.5-10.1); Chloride 97 mmol/L (98-107); Creatinine, Serum 0.89 mg/dL (0.55-1.02); EST Glomerular Filtration Rate 65 mL/min (>60); Est Glom Filt Rate - Afr Amer 78 mL/min (>60); Estimated Creatinine Clearance 44.61 ml/min; Glucose 92 mg/dL (74-106); Potassium 4.2 mmol/L (3.5-5.1); Sodium Level 132 mmol/L (136-145)
[2020-10-08 19:23] LABS: International Normalized Ratio 1.1; Partial Thromboplast Time 26.3 Seconds (24.1-36.2); Prothrombin Time (Protime)PT. 13.5 SECONDS (11.7-14.9)
--- NOTE | 2020-10-08 20:05 | ED.RN ---
PT HAS DEMENTIA AND DURING NIH SHE WOULD JUST RANDOMLY TALK CLEARLY ABOUT RANDOM THINGS ESPECIALLY ABOUT GRAVY AND GRAPES.
--- NOTE | 2020-10-08 20:33 | ED.RN ---
PT IS CONFUSED AND NEEDS REPETITION OF THE QUESTION FOR HER TO FOCUS ON WHAT IS BEING ASKED. PT MAEX4,BUT WILL NOT DO SOME OF THE NIH.PT IS OBSESSED WITH GRAVY AND PICKLES.
--- NOTE | 2020-10-08 20:48 | HP.PCM_ITS ---
Problem List (1) Stroke-like symptoms Status: Acute (2) Debility Status: Chronic (3) Weakness Status: Inactive (4) Acute delirium Status: Inactive (5) Hyponatremia Status: Acute (6) Aspiration pneumonia Status: Acute (7) Anxiety Status: Chronic (8) Bipolar disorder Status: Chronic (9) DVT (deep venous thrombosis) Status: Chronic (10) Dysphagia Status: Acute (11) Aphasia Status: Inactive (12) Acute hyponatremia Status: Acute (13) Elevated troponin Status: Acute (14) Hiatal hernia Status: Chronic (15) HTN (hypertension) Status: Chronic Qualifiers: (16) Bipolar disorder Status: Chronic (17) Anxiety disorder Status: Chronic (18) History of DVT (deep vein thrombosis) Status: Chronic (19) Coronary artery disease Status: Chronic History of Present Illness Date of Admission: 10/08/20 Chief Complaint: drooling and unable to swallow The patient is a 79 year old F with a significant history of bipolar disorder who was transferred from the transitional care unit to the ED of our hospital ([facility]) for difficulty swallowing. Reportedly she had difficulty swallowing with multiple attempts and with drooling. Her symptoms started a few of hours prior to presentation to the ED. Also reportedly she has been having on and nonsensical speech for a couple of da ys. Patient was admitted to the hospital on 09/21/2020 and discharged on 09/28/2020 for diagnosis of acute hyponatremia and elevated troponin. She had presented with a complaint of weakness and confusion. On presentation at that time her sodium was 114. Her low sodium was attributed to use of diuretics. Past Medical History Past Medical History (Chronic Problems): Chronic Problems Debility (Chronic) Anxiety (Chronic) Bipolar disorder (Chronic) DVT (deep venous thrombosis) (Chronic) Hiatal hernia (Chronic) HTN (hypertension) (Chronic) Bipolar disorder (Chronic) Anxiety disorder (Chronic) History of DVT (deep vein thrombosis) (Chronic) Coronary artery disease (Chronic) Allergies ciprofloxacin [From Cipro] Allergy (Verified 10/08/20 18:33) Itching sulfamethoxazole [From Bactrim] Allergy (Verified 10/08/20 18:33) Itching trimethoprim [From Bactrim] Allergy (Verified 10/08/20 18:33) Itching Home Medications: Ambulatory Orders Medication Instructions Recorded Olanzapine [Zyprexa] 2.5 mg PO DAILY 08/12/16 Olanzapine [Zyprexa] 10 mg PO QHS 08/12/16 Senna [Senokot] 2 tablet PO BID 08/12/16 Timolol 0.5% [Timoptic] 1 drop EACH EYE BID 01/16/17 ALPRAZolam [Xanax] 0.5 mg PO TID PRN #9 tablet 01/19/17 Divalproex Sodium 500 mg PO QHS 09/21/20 Metoprolol Tartrate [Lopressor 100 mg PO BID 09/21/20 (beta casa)] Trazodone HCl 100 - 200 mg PO QHS 09/21/20 Aspirin E.C. [Ecotrin] 81 mg PO DAILY@0800 09/28/20 Amlodipine [Norvasc] 5 mg PO DAILY 10/08/20 Bisacodyl 10 mg RC DAILY PRN PRN 10/08/20 Carbidopa/Levodopa [Carbidopa-Levo 1 tab PO TID 10/08/20 ER 25-100 Tab] Losartan Potassium [Cozaar] 100 mg PO DAILY 10/08/20 Magnesium Hydroxide [Milk Of 30 ml PO DAILY PRN PRN 10/08/20 Magnesia] Menthol/Zinc Oxide [Calmoseptine 71 gm TP BID 10/08/20 Ointment] Mirtazapine 7.5 mg PO QHS 10/08/20 Nystatin [Nystop] 1 applic TP BID 10/08/20 Polyethylene Glycol 3350 [Miralax] 17 gm PO DAILY 10/08/20 Surgical History: angioplasty, hysterectomy, total hip arthroplasty Psychiatric History: Anxiety, Bipolar, Depression 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 Maternal History Items: - - Denies known maternal medical history including cardiac history. Review of Systems Unable to obtain accurate/complete ROS d/t: Confusion VTE Information - Inpt Only VTE Present on Admission: No VTE Mechan Device Prophylaxis: None VTE Pharm Prophylaxis ordered?: Yes Patient Problems: Active and Suspected Problems Hyponatremia (Acute) Aspiration pneumonia (Acute) Dysphagia (Acute) Stroke-like symptoms (Acute) Acute hyponatremia (Acute) Elevated troponin (Acute) - Physical Exam Vitals/I&O's: Vital Signs Temp Pulse Resp BP Pulse Ox 97.2 F L 89 17 143/92 H 95 10/08/20 20:37 10/08/20 20:37 10/08/20 20:37 10/08/20 20:37 10/08/20 20:37 Oxygen Flow Rate (L/min) 2 Oxygen Delivery Method Nasal Cannula Weight: 71.3 kg Body Mass Index (BMI) 26.2 Finger Stick Blood Glucose 97 General: Alert, Confused HEENT: Atraumatic, EOMI, Normocephalic Neck: Supple, No JVD, Negative Carotid Bruits Lungs: - - Coarse Cardiovascular: Regular rate, Normal S1, Normal S2, No murmurs Abdomen: Bowel Sounds Present, Soft, Non Tender Extremities: No edema, Capillary Refill Less than 3 Seconds Skin: No rashes, No breakdown Musculoskeletal: No Tenderness to Palpation of Joints or Extremities Neurological: - - Not following commands to check cranial nerves. Psych/Mental Status: Restless Laboratory Results 10/08/20 18:25: POC Glucose 97 10/08/20 18:28: WBC 13.0 H, RBC 3.37 L, Hgb 11.4 L, Hct 34.3 L, MCV 101.8 H, MCH 33.8 H, MCHC 33.2, RDW Std Deviation 50.9 H, RDW Coeff of Pelon 14.0, Plt Count 244, MPV 9.0, Immature Gran % (Auto) 0.500, Neut % (Auto) 78.9 H, Lymph % (Auto) 11.3 L, Holt % (Auto) 7.8, Eos % (Auto) 1.2, Baso % (Auto) 0.3, Absolute Neuts (auto) 10.3 H, Absolute Lymphs (auto) 1.47, Nucleated RBC % 0 10/08/20 18:28: PT Cancelled, INR Cancelled, APTT Cancelled 10/08/20 18:28: Sodium 132 L, Potassium 4.2, Chloride 97 L, Carbon Dioxide 32.0, Anion Gap 3 L, BUN 22 H, Creatinine 0.89, Estim Creat Clear Calc 44.61, Est GFR (MDRD) Af Amer 78, Est GFR (MDRD) Non-Af 65, BUN/Creatinine Ratio 24.7 H, Gluc ose 92, Calcium 8.9, Troponin I 0.089 H 10/08/20 19:00: PT 13.5, INR 1.1, APTT 26.3 Current Medications Sodium Chloride () 500 mls @ 999 mls/hr IV .Q31M ONE Last Admin: 10/08/20 18:41 Dose: 999 mls/hr Documented by: Iopamidol (Contrast Allergy Safety Check) 0 ml IV X1 JANINE Labetalol HCl (Labetalol (Prefilled) 20 Mg/4 Ml) 20 mg IV X1 PRN PRN Reason: Blood Pressure Assessment/Plan All Active Problems Hyponatremia (Acute) Aspiration pneumonia (Acute) Dysphagia (Acute) Stroke-like symptoms (Acute) Acute hyponatremia (Acute) Elevated troponin (Acute) The patient is a 79 year old F with a significant history of bipolar disorder who was [facility] from the transitional care unit at our hospital ([facility]) for difficulty swallowing with multiple attempts and with drooling and with nonsensical speech. Stroke-like Symptoms Serial NINDS NIH Scale ordered CT of the head and CTA Head and neck -Check Hba1c, Lipid level Physical therapy, occupational therapy and speech therapy to work with patient. N.p.o. until bedside swallow eval. Because of difficulties swallowing we will hold off statin at this time. Rectal aspirin ordered. Permissive hypertension. Control blood pressure with labetalol for systolic blood pressure of more than 220 or diastolic blood pressure of more than 120. MRI head ordered Echocardiogram ordered. Elevated troponin EKG with LVH. Patient with elevated troponin; not elevated above her baseline. Will trend troponin. Aspiration pneumonia We did get impression of chest x-ray: Cannot exclude atelectasis or infiltrate and/or small effusion in the left lung base. Actual chest x-ray image was independently interpreted. I agree with radiologist interpretation. With multiple attempts at swallowing patient may have aspirated. Started on Unasyn in the emergency department and continued. Trend CBC and BMP. Acute hyponatremia Sodium presentation was 132. Review of records show that her sodium has improved Trend BMP. Acute metabolic encephalopathy TSH on last admission in September was normal. Check vitamin B12 Check ammonia level. DVT prophylaxis Subcutaneous Lovenox ordered. OBSV E&M: 28323 Initial observation care L3
[2020-10-08] MEDS: 0.9% Normal Saline 1,000 ML 60 ML IV (22:30)
[2020-10-08] MEDS: LORazepam 2 MG/ML Syringe 1 MG IV (23:11)
[2020-10-09] VITALS (14 sets, daily range): BP systolic 150–199; BP diastolic 69–95; PULSE 77–121; RESP 16–19; TEMP 36.3–37.7; O2SAT 92–96
[2020-10-09 05:53] LABS: Absolute Lymphocyte Count 0.81 X10^3/uL (0.83-4.51); Absolute Neutrophil Count 7.1 X10^3/uL (2.0-7.7); Basophil# 0.04 X10^3/uL; Basophil% 0.5 % (0-1); Eosinophils% 2.3 % (0-5); Hematocrit 31.9 % (37-47); Hemoglobin 10.4 g/dL (12.0-15.0); Lymphocyte # 0.81 X10^3/ul (4.0); Lymphocyte % 9.2 % (19-41); Mean Corp Hgb Conc 32.6 g/dL (32-36); Mean Corpuscular Hgb 32.9 pg (27.0-32.0); Mean Corpuscular Volume 100.9 fL (81-99); Mean Platelet Vol. 8.9 fl (6.2-12.0); Monocyte# 0.59 X10^3/uL; Monocyte% 6.7 % (0-10); NRBC Flagged by Analyzer 0 % (0-5); Neutrophil # 7.14 X10^3/uL (2.7-7.7); Neutrophil % 81.1 % (47-70); Platelet Count 242 K/mm3 (150-450); RBC Distribution Width CV 14.1 % (11.6-14.6); RBC Distribution Width SD 51.1 fl (35.1-43.9); Red Blood Count 3.16 M/mm3 (4.2-5.4); White Blood Count 8.8 K/mm3 (4.4-11.0)
[2020-10-09 07:23] LABS: Anion Gap 6 (5-15); BUN 17 mg/dL (7-18); Calcium,Total 8.3 mg/dL (8.5-10.1); Chloride 101 mmol/L (98-107); Cholesterol 138 mg/dL (200); Creatinine, Serum 0.63 mg/dL (0.55-1.02); EST Glomerular Filtration Rate 96 mL/min (>60); Est Glom Filt Rate - Afr Amer 116 mL/min (>60); Glucose 85 mg/dL (74-106); High Density Lipoprotein 44 mg/dL; Magnesium 2.5 mg/dL (1.6-2.6); Potassium 3.9 mmol/L (3.5-5.1); Sodium Level 138 mmol/L (136-145); Triglycerides 98 mg/dL; Very Low Density Lipoprotein 20 mg/dL (5-40)
[2020-10-09 08:18] LABS: Hemoglobin A1c 5.6 % (3.8-5.6)
[2020-10-09] MEDS: Aspirin 300 MG Suppository RC (09:02)
[2020-10-09] MEDS: Enoxaparin 40 MG/0.4 ML Syringe SC (09:02)
--- NOTE | 2020-10-09 09:27 | PN_ITS ---
Patient Problems: Active and Suspected Problems Hyponatremia (Acute) Aspiration pneumonia (Acute) Dysphagia (Acute) Stroke-like symptoms (Acute) Acute hyponatremia (Acute) Elevated troponin (Acute) Subjective: Still confused, thinks it is 2001 does not answer most questions appropriately. Vitals/I&O's: Vital Signs Temp Pulse Resp BP Pulse Ox 98.2 F 80 18 150/78 H 96 10/09/20 09:12 10/09/20 09:12 10/09/20 09:12 10/09/20 09:12 10/09/20 09:12 Oxygen Flow Rate (L/min) 2 Oxygen Delivery Method Nasal Cannula Weight: 146 lb 2.664 oz Body Mass Index (BMI) 24.3 Finger Stick Blood Glucose 97 Intake and Output for Last 24 Hours 10/07/20 10/08/20 10/09/20 23:59 23:59 23:59 Intake Total 612 / 612 1193 / 1193 Output Total 1300 / 1300 600 / 600 Balance -688 / -688 593 / 593 General: Alert, Cooperative, No apparent distress, Confused HEENT: Atraumatic, PERRLA, EOMI, Normocephalic Oral: Dry Mucosa Neck: Supple, No JVD Lungs: Normal air movement, No rhonchi, No wheeze, No rales, Diminished Cardiovascular: Regular rate, Regular Rhythm, Normal S1, Normal S2, No murmurs Abdomen: Soft, Non Tender, Non-Distended, No Hepato-splenomegaly Extremities: No edema, Capillary Refill Less than 3 Seconds Skin: No rashes, No breakdown Musculoskeletal: No Tenderness to Palpation of Joints or Extremities Neurological: - - Difficult to evaluate as she does follow commands very well Psych/Mental Status: Flat Affect Microbiology Past 72 Hours 10/08/20 21:30 Sputum, Expectorated/Coughed Gram Stain - Final Laboratory Results 10/08/20 18:25: POC Glucose 97 10/08/20 18:28: WBC 13.0 H, RBC 3.37 L, Hgb 11.4 L, Hct 34.3 L, MCV 101.8 H, MCH 33.8 H, MCHC 33.2, RDW Std Deviation 50.9 H, RDW Coeff of Pelon 14.0, Plt Count 244, MPV 9.0, Immature Gran % (Auto) 0.500, Neut % (Auto) 78.9 H, Lymph % (Auto) 11.3 L, Person % (Auto) 7.8, Eos % (Auto) 1.2, Baso % (Auto) 0.3, Absolute Neuts (auto) 10.3 H, Absolute Lymphs (auto) 1.47, Nucleated RBC % 0 10/08/20 18:28: PT Cancelled, INR Cancelled, APTT Cancelled 10/08/20 18:28: Sodium 132 L, Potassium 4.2, Chloride 97 L, Carbon Dioxide 32.0, Anion Gap 3 L, BUN 22 H, Creatinine 0.89, Estim Creat Clear Calc 44.61, Est GFR (MDRD) Af Amer 78, Est GFR (MDRD) Non-Af 65, BUN/Creatinine Ratio 24.7 H, Glucose 92, Calcium 8.9, Troponin I 0.089 H 10/08/20 19:00: PT 13.5, INR 1.1, APTT 26.3 10/09/20 02:55: Troponin I 0.111 H 10/09/20 05:32: WBC 8.8, RBC 3.16 L, Hgb 10.4 L, Hct 31.9 L, MCV 100.9 H, MCH 32.9 H, MCHC 32.6, RDW Std Deviation 51.1 H, RDW Coeff of Pelon 14.1, Plt Count 242, MPV 8.9, Immature Gran % (Auto) 0.200, Neut % (Auto) 81.1 H, Lymph % (Auto) 9.2 L, Person % (Auto) 6.7, Eos % (Auto) 2.3, Baso % (Auto) 0.5, Absolute Neuts (auto) 7.1, Absolute Lymphs (auto) 0.81 L, Nucleated RBC % 0 10/09/20 05:32: Sodium 138, Potassium 3.9, Chloride 101, Carbon Dioxide 31.0, Anion Gap 6, BUN 17, Creatinine 0.63, Estim Creat Clear Calc 39.70, Est GFR (MDRD) Af Amer 116, Est GFR (MDRD) Non-Af 96, BUN/Creatinine Ratio 27.0 H, Glucose 85, Calcium 8.3 L, Magnesium 2.5, Triglycerides 98, Cholesterol 138, LDL Cholesterol 74, VLDL Cholesterol 20, HDL Cholesterol 44 10/09/20 05:32: Hemoglobin A1c 5.6 10/09/20 05:32: Vitamin B12 Pending 10/09/20 05:32: Ammonia 21.0 10/09/20 05:32: Troponin I 0.116 H 10/09/20 08:15: Troponin I 0.114 H Current Medications Albuterol Sulfate (Albuterol 2.5 Mg/3 Ml Vial.Neb.) 2.5 mg INHALATION Q2H PRN PRN PRN Reason: SOB/Wheezing Aspirin (Aspirin 300 Mg Suppository) 300 mg RC DAILY [facility] Last Admin: 10/09/20 09:02 Dose: 300 mg Documented by: Enoxaparin Sodium (Enoxaparin 40 Mg/0.4 Ml Syringe) 40 mg SC DAILY [facility] Last Admin: 10/09/20 09:02 Dose: 40 mg Documented by: Hydralazine HCl (Hydralazine 20 Mg/Ml Vial) 5 mg IV Q30M PRN PRN Reason: to maintain BP goals Sodium Chloride () 500 mls @ 999 mls/hr IV .Q31M ONE Last Infusion: 10/08/20 21:11 Dose: Infused Documented by: Sodium Chloride () 1,000 mls @ 60 mls/hr IV .[id number] [facility] Last Infusion: 10/09/20 07:40 Dose: 60 mls/hr Documented by: Ampicillin Sodium/Sulbactam (Sodium 3 gm/ Sodium Chloride) 112 mls @ 150 mls/hr IV Q6 [facility] Last Infusion: 10/09/20 07:40 Dose: Infused Documented by: Labetalol HCl (Labetalol (Prefilled) 20 Mg/4 Ml) 10 - 20 mg IV Q10M PRN PRN PRN Reason: to Maintain BP Goals Lorazepam (Lorazepam 2 Mg/Ml Syringe) 1 mg IV Q8H PRN PRN PRN Reason: ANXIETY Last Admin: 10/08/20 23:11 Dose: 1 mg Documented by: Ondansetron HCl (Ondansetron 4 Mg/2 Ml Vial) 4 mg IV Q8H PRN PRN PRN Reason: NAUSEA/VOMITING Sodium Chloride (0.9% Saline Lock 10 Ml Syringe) 10 - 40 ml IV UD PRN PRN Reason: SALINE FLUSH STROKE Vital Signs/Narrative: Vital Signs Temp Pulse Resp BP Pulse Ox 10/09/20 09:12 98.2 F 80 18 150/78 H 96 10/09/20 07:40 95 10/09/20 06:59 77 10/09/20 06:20 18 93 10/09/20 06:15 98.1 F 79 19 H 159/80 H 93 Medical Necessity - Tobacco Use Smoking Status: Former smoker Assessment/Plan All Active Problems Hyponatremia (Acute) Aspiration pneumonia (Acute) Dysphagia (Acute) Stroke-like symptoms (Acute) Acute hyponatremia (Acute) Elevated troponin (Acute) 1. Strokelike symptoms/possible aspiration pneumonia with acute metabolic encephalopathy -[facility] is had confused speech for several days and then developed swallowing difficulties on the day of admission. -Swallowing difficulties and possible atelectasis versus infiltrate on the left lower lobe, there is a possibility of aspiration pneumonia though I would anticipate this to be on the right side -Continue on Unasyn for now, and will obtain a UA to make sure she does not have a UTI that is confounding the picture -CTA of the head and neck was unremarkable -MRI is pending -No need for an echo on this admission as she just had one less than a month ago which was unremarkable -Can restart her home blood pressure medications tomorrow -She is on aspirin but does not appear to be on a statin. Can start her on a statin when she is cleared by speech therapy -Also on Depakote as an outpatient which can explain her hyponatremia and her metabolic encephalopathy if she is at toxic levels therefore will check a Depakote level 2. HTN/HLD/chronically elevated troponin -Will not address her troponin elevation as this is chronic and at baseline for her -We will allow permissive hypertension for now and restart her blood pressure medications in the morning if she is able to take p.o. 3. Parkinson's disease with possible dementia/anxiety/depression -Once she is able to take p.o. will restart some of her home medications -Been her encephalopathy will hold off on restarting her Xanax, will hold her Zyprexa as well -If her Depakote is normal can restart that once taking p.o. DVT: Lovenox OBSV E&M: [id number] Subsequent observation care L2
--- NOTE | 2020-10-09 09:30 | MRI_ITS ---
STUDY: MRI BRAIN WITHOUT CONTRAST REASON FOR EXAM: Female, 79 years old. CVA, AMS TECHNIQUE: Standardized multiplanar fat and water weighted pulse sequences were obtained. COMPARISON: CT October 08, 2020 FINDINGS: There is moderate cerebral atrophy with widening of the extra-axial spaces and ventricular dilatation. There are a limited number of small white matter hyperintensities, distributed throughout the deep white matter tracts of the cerebral hemispheres, consistent with mild chronic white matter ischemic changes. There is no evidence for recent intracranial ischemia or other cause of cytotoxic edema on diffusion weighted imaging (DWI). Normal T2* images of the brain without demonstrated susceptibility artifact. There is no demonstrated hemosiderin stain. Normal bilateral basal ganglia. Normal thalami. There is no extra-axial fluid accumulation. Normal flow voids within the major intracranial circulation suggesting patency by spin echo criteria. Normal sella turcica, pituitary gland, infundibular stalk, optic chiasm and hypothalamus. Normal tectal plate and pineal gland. Normal midbrain, joni and medulla. Normal cerebellum. Normal basal cisterns. Normal bilateral temporal bones. Normal bilateral internal auditory canals. There are bilateral ocular lens implants with otherwise normal intraorbital contents. Normal visualized paranasal sinuses. Normal calvarium and skull base. Normal visualized soft tissue structures. Normal visualized upper cervical spine. MRI/Brain without Contrast IMPRESSION: Involutional changes of the brain, as described above. Electronically Signed: Andrea Ceballos MD at 11:13 EST , Service support ,
--- NOTE | 2020-10-09 10:12 | CASEMGMT ---
PHQ-9 not completed due to pt confusion. NANETTE Porter
--- NOTE | 2020-10-09 10:25 | CASEMGMT ---
Pt is here from TCU. SW confirmed W/Neela in TCU pt can return when ready. SW called son Josafat first(as SW in TCU's notes state pt had stated wanted him to be POA), phone rang then went to a busy signal. Both sons appear to be involved as per TCU SW notes. SW then called bart Trsitan, confirmed plan if for pt to return to TCU when ready. Son asked about updates on pt, SW explained will see if RN is available to call, SW let RN know that son would like an update as available. Pt is off the floor, green sheet will be placed on the chart when pt returns to the floor. NANETTE Porter
[2020-10-09 12:11] LABS: Bacteria 0 SEEN /hpf (None Seen); Mucous, Urine 0 SEEN /hpf (<or=2+); Squamous Epithelial Cells - UA 0 SEEN /hpf (5-10)
[2020-10-09 12:13] LABS: Color, Urine Straw (Yellow); Glucose, Dipstick Normal (Normal); Ketone-Dipstick 15 mg/dl (Negative); Leukocyte Esterase-Dipstick 100 /ul (Negative); Nitrite-Dipstick Negative (Negative); Occult Blood-Urine 25 /ul (Negative); Protein-Dipstick 30 mg/dl (Negative); Urine Bilirubin Dipstick Negative (Negative); Urine Clarity Clear (Clear); Urine Urobilinogen Normal (Normal)
[2020-10-09 12:20] LABS: Red Blood Cells-Urine 0-5 SEEN /hpf (0-5); White Blood Cells 5-10 SEEN /hpf (0-5); Yeast-Urine 2+ /hpf (None Seen)
[2020-10-09 12:32] LABS: Valproic Acid (Depakene) Level 13 ug/mL (50-100)
[2020-10-09] MEDS: 0.9% Normal Saline 1,000 ML 60 ML IV (18:24)
[2020-10-09] MEDS: LORazepam 2 MG/ML Syringe 1 MG IV (22:17)
[2020-10-10] VITALS (14 sets, daily range): BP systolic 150–186; BP diastolic 71–96; PULSE 56–116; RESP 16–18; TEMP 36.5–37.2; O2SAT 94–96
[2020-10-10 06:15] LABS: Absolute Lymphocyte Count 1.43 X10^3/uL (0.83-4.51); Absolute Neutrophil Count 6.2 X10^3/uL (2.0-7.7); Basophil# 0.05 X10^3/uL; Basophil% 0.6 % (0-1); Eosinophil# 0.08 X10^3/uL; Eosinophils% 0.9 % (0-5); Hematocrit 32.6 % (37-47); Hemoglobin 10.3 g/dL (12.0-15.0); Lymphocyte # 1.43 X10^3/ul (4.0); Lymphocyte % 16.2 % (19-41); Mean Corp Hgb Conc 31.6 g/dL (32-36); Mean Corpuscular Volume 104.5 fL (81-99); Monocyte# 1.08 X10^3/uL; Monocyte% 12.2 % (0-10); NRBC Flagged by Analyzer 0 % (0-5); Neutrophil # 6.15 X10^3/uL (2.7-7.7); Neutrophil % 69.8 % (47-70); Platelet Count 225 K/mm3 (150-450); RBC Distribution Width CV 14.5 % (11.6-14.6); RBC Distribution Width SD 54.3 fl (35.1-43.9); Red Blood Count 3.12 M/mm3 (4.2-5.4); White Blood Count 8.8 K/mm3 (4.4-11.0)
[2020-10-10 06:38] LABS: Anion Gap 6 (5-15); BUN 12 mg/dL (7-18); BUN/Creat Ratio 16.6 RATIO (10-20); Calcium,Total 8.4 mg/dL (8.5-10.1); Chloride 103 mmol/L (98-107); Creatinine, Serum 0.72 mg/dL (0.55-1.02); EST Glomerular Filtration Rate 82 mL/min (>60); Est Glom Filt Rate - Afr Amer 99 mL/min (>60); Glucose 73 mg/dL (74-106); Potassium 3.8 mmol/L (3.5-5.1); Sodium Level 139 mmol/L (136-145)
[2020-10-10] MEDS: Enoxaparin 40 MG/0.4 ML Syringe SC (08:43)
[2020-10-10] MEDS: LORazepam 2 MG/ML Syringe 1 MG IV ×2 (08:43→17:06)
[2020-10-10] MEDS: Aspirin 300 MG Suppository RC (08:46)
--- NOTE | 2020-10-10 09:46 | PCM.PN.HOSP ---
Patient Problems: Active and Suspected Problems Hyponatremia (Acute) Aspiration pneumonia (Acute) Dysphagia (Acute) Stroke-like symptoms (Acute) Acute hyponatremia (Acute) Elevated troponin (Acute) Subjective: Still confused no issues overnight. Does not respond to questions appropriately Vitals/I&O's: Vital Signs Temp Pulse Resp BP Pulse Ox 97.7 F L 105 H 18 152/71 H 94 10/10/20 09:00 10/10/20 09:00 10/10/20 09:00 10/10/20 09:00 10/10/20 09:00 Oxygen Flow Rate (L/min) 2 Oxygen Delivery Method Nasal Cannula Weight: 146 lb 2.664 oz Body Mass Index (BMI) 24.3 Finger Stick Blood Glucose 97 Intake and Output for Last 24 Hours 10/08/20 10/09/20 10/10/20 23:59 23:59 23:59 Intake Total 612 / 612 2273 / 2273 520 / 520 Output Total 1300 / 1300 1375 / 1375 250 / 250 Balance -688 / -688 898 / 898 270 / 270 General: Alert, Cooperative, No apparent distress, Confused HEENT: Atraumatic, PERRLA, EOMI, Normocephalic Oral: Dry Mucosa Neck: Supple, No JVD Lungs: Normal air movement, No rhonchi, No wheeze, No rales, Diminished Cardiovascular: Regular rate, Regular Rhythm, Normal S1, Normal S2, No murmurs Abdomen: Soft, Non Tender, Non-Distended, No Hepato-splenomegaly Extremities: No edema, Capillary Refill Less than 3 Seconds Skin: No rashes, No breakdown Musculoskeletal: No Tenderness to Palpation of Joints or Extremities Neurological: - - Difficult to evaluate as she does follow commands very well Psych/Mental Status: Flat Affect Microbiology Past 72 Hours 10/08/20 21:30 Sputum, Expectorated/Coughed Gram Stain - Final Laboratory Results 10/09/20 11:22: Valproic Acid 13 L 10/09/20 12:00: Urine Color Straw, Urine Clarity Clear, Urine pH 7.0, Ur Specific [place] 1.010, Urine Protein 30 H, Urine Glucose (UA) Normal, Urine Ketones 15 H, Urine Occult Blood 25 H, Urine Nitrite Negative, Urine Bilirubin Negative, Urine Urobilinogen Normal, Ur Leukocyte Esterase 100 H, Urine RBC 0-5 SEEN, Urine WBC 5-10 SEEN, Ur Squamous Epith Cells 0 SEEN, Urine Bacteria 0 SEEN, Urine Mucus 0 SEEN, Urine Yeast 2+ 10/10/20 05:54: WBC 8.8, RBC 3.12 L, Hgb 10.3 L, Hct 32.6 L, MCV 104.5 H, MCH 33.0 H, MCHC 31.6 L, RDW Std Deviation 54.3 H, RDW Coeff of Pelon 14.5, Plt Count 225, MPV 9.0, Immature Gran % (Auto) 0.300, Neut % (Auto) 69.8, Lymph % (Auto) 16.2 L, [place] % (Auto) 12.2 H, Eos % (Auto) 0.9, Baso % (Auto) 0.6, Absolute Neuts (auto) 6.2, Absolute Lymphs (auto) 1.43, Nucleated RBC % 0 10/10/20 05:54: Sodium 139, Potassium 3.8, Chloride 103, Carbon Dioxide 30.0, Anion Gap 6, BUN 12, Creatinine 0.72, Estim Creat Clear Calc 39.70, Est GFR (MDRD) Af Amer 99, Est GFR (MDRD) Non-Af 82, BUN/Creatinine Ratio 16.6, Glucose 73 L, Calcium 8.4 L Current Medications Albuterol Sulfate (Albuterol 2.5 Mg/3 Ml Vial.Neb.) 2.5 mg INHALATION Q2H PRN PRN PRN Reason: SOB/Wheezing Amlodipine Besylate (Amlodipine 5 Mg Tablet) 5 mg PO DAILY [facility] Aspirin (Aspirin 300 Mg Suppository) 300 mg RC DAILY [facility] Last Admin: 10/10/20 08:46 Dose: 300 mg Documented by: Carbidopa/Levodopa (Carbidopa/Levodopa Cr 50/200 Tablet) 0.5 tablet PO TIDAC [facility] Divalproex Sodium (Divalproex (Er) 500 Mg Tablet) 500 mg PO QHS [facility] Enoxaparin Sodium (Enoxaparin 40 Mg/0.4 Ml Syringe) 40 mg SC DAILY [facility] Last Admin: 10/10/20 08:43 Dose: 40 mg Documented by: Hydralazine HCl (Hydralazine 20 Mg/Ml Vial) 5 mg IV Q30M PRN PRN Reason: to maintain BP goals Sodium Chloride () 500 mls @ 999 mls/hr IV .Q31M ONE Last Infusion: 10/08/20 21:11 Dose: Infused Documented by: Sodium Chloride () 1,000 mls @ 60 mls/hr IV .[id number] [facility] Last Infusion: 10/10/20 06:13 Dose: 60 mls/hr Documented by: Ampicillin Sodium/Sulbactam (Sodium 3 gm/ Sodium Chloride) 112 mls @ 150 mls/hr IV Q6 [facility] Last Infusion: 10/10/20 06:13 Dose: Infused Documented by: Labetalol HCl (Labetalol (Prefilled) 20 Mg/4 Ml) 10 - 20 mg IV Q10M PRN PRN PRN Reason: to Maintain BP Goals Lorazepam (Lorazepam 2 Mg/Ml Syringe) 1 mg IV Q8H PRN PRN PRN Reason: ANXIETY Last Admin: 10/10/20 08:43 Dose: 1 mg Documented by: Losartan Potassium (Losartan Potassium 100 Mg Tablet) 100 mg PO DAILY [facility] Metoprolol Tartrate (Metoprolol Tartrate 100 Mg Tablet) 100 mg PO BID [facility] Mirtazapine (Mirtazapine 15 Mg Tablet) 7.5 mg PO QHS [facility] Ondansetron HCl (Ondansetron 4 Mg/2 Ml Vial) 4 mg IV Q8H PRN PRN PRN Reason: NAUSEA/VOMITING Sodium Chloride (0.9% Saline Lock 10 Ml Syringe) 10 - 40 ml IV UD PRN PRN Reason: SALINE FLUSH STROKE Vital Signs/Narrative: Vital Signs Temp Pulse Resp BP Pulse Ox 10/10/20 09:00 97.7 F L 105 H 18 152/71 H 94 10/10/20 07:04 111 H 10/10/20 07:00 95 Medical Necessity - Tobacco Use Smoking Status: Former smoker Assessment/Plan All Active Problems Hyponatremia (Acute) Aspiration pneumonia (Acute) Dysphagia (Acute) Stroke-like symptoms (Acute) Acute hyponatremia (Acute) Elevated troponin (Acute) 1. Strokelike symptoms/possible aspiration pneumonia with acute metabolic encephalopathy -[facility] the [facility] and is had confused speech for several days and then developed swallowing difficulties on the day of admission. -Swallowing difficulties and possible atelectasis versus infiltrate on the left lower lobe, there is a possibility of aspiration pneumonia though I would anticipate this to be on the right side -Continue on Unasyn for now, and will obtain a UA to make sure she does not have a UTI that is confounding the picture -CTA of the head and neck was unremarkable -MRI was negative for stroke but does show chronic white matter changes consistent with ischemia -No need for an echo on this admission as she just had one less than a month ago which was unremarkable Depakote level was low and she has been treated appropriately for an aspiration pneumonia and she is still not improving, her UA showed 2+ yeast. Because she continues to have an acute metabolic encephalopathy with a normal ammonia treatment for pneumonia and a normal BUN and renal function, will proceed with an EEG in the setting of her Parkinson's disease and her history of ischemic strokes. 2. HTN/HLD/chronically elevated troponin -Will not address her troponin elevation as this is chronic and at baseline for her -We will allow permissive hypertension for now and restart her blood pressure medications in the morning if she is able to take p.o. 3. Parkinson's disease with possible dementia/anxiety/depression -Once she is able to take p.o. will restart some of her home medications -Been her encephalopathy will hold off on restarting her Xanax, will hold her Zyprexa as well -If her Depakote is normal can restart that once taking p.o. DVT: Lovenox Inpatient E&M: [id number] Subs Hosp L2
[2020-10-10] MEDS: 0.9% Normal Saline 1,000 ML 60 ML IV (12:33)
[2020-10-10] MEDS: Metoprolol Tartrate 5 MG/5 ML Vial IV ×2 (13:28→17:09)
[2020-10-10] MEDS: CARBIDOPA/LEVODOPA CR 50/200 Tablet PO (17:32)
[2020-10-10] MEDS: Mirtazapine 15 MG Tablet 7.5 MG PO (19:44)
[2020-10-11] VITALS (19 sets, daily range): BP systolic 138–187; BP diastolic 60–103; PULSE 81–113; RESP 16–18; TEMP 36.6–37.3; O2SAT 92–97
[2020-10-11] MEDS: Metoprolol Tartrate 5 MG/5 ML Vial IV ×6 (02:13→22:05)
[2020-10-11] MEDS: CARBIDOPA/LEVODOPA CR 50/200 Tablet PO ×2 (06:00→10:03)
[2020-10-11] MEDS: 0.9% Normal Saline 1,000 ML 60 ML IV (06:58)
[2020-10-11 07:40] LABS: Bedside Glucose 89 mg/dL (70-110)
[2020-10-11 09:03] LABS: Vitamin B12 608 pg/mL (211-911)
[2020-10-11] MEDS: Enoxaparin 40 MG/0.4 ML Syringe SC (10:03)
[2020-10-11] MEDS: Losartan Potassium 100 MG Tablet PO (10:03)
[2020-10-11] MEDS: amLODIPine 5 MG Tablet PO (10:03)
--- NOTE | 2020-10-11 11:53 | PN_ITS ---
Patient Problems: Active and Suspected Problems Hyponatremia (Acute) Aspiration pneumonia (Acute) Dysphagia (Acute) Stroke-like symptoms (Acute) Acute hyponatremia (Acute) Elevated troponin (Acute) Reason for Visit: Acute encephalopathy Subjective: Patient is an 79-year-old lady with underlying history of bipolar disorder who was transferred from the transitional care unit to the ED with altered mental status, difficulty swallowing as well as drooling. Admitted to monitored bed for subsequent management Objective: GENERAL: in no apparent distress HEENT: Atraumatic; EYES; Anicteric, Normal Conjunctiva NECK; supple, normal thyroid, RESPIRATORY: Diminished to auscultation CARDIOVASCULAR: Regular S1 S2, GI: soft, normoactive bowel sounds, : No Renal angle tenderness; EXTREMITIES: No edema, no clubbing, MUSCULOSKELETAL: no muscle waisting NEURO: Awake; no lateralizing signs. SKIN: No Rash PSYCH; patient is delirious Vitals/I&O's: Vital Signs Temp Pulse Resp BP Pulse Ox 97.9 F 92 18 138/60 H 95 10/11/20 07:43 10/11/20 10:49 10/11/20 07:43 10/11/20 07:43 10/11/20 07:43 Oxygen Flow Rate (L/min) 2 Oxygen Delivery Method Nasal Cannula Weight: 66.3 kg Body Mass Index (BMI) 24.3 Finger Stick Blood Glucose 97 Intake and Output for Last 24 Hours 10/09/20 10/10/20 10/11/20 23:59 23:59 23:59 Intake Total 2273 / 2273 1228.0 / 1228.0 1224 / 1224 Output Total 1375 / 1375 1350 / 1350 200 / 200 Balance 898 / 898 -122.0 / -122.0 1024 / 1024 Microbiology Past 72 Hours 10/08/20 21:30 Sputum, Expectorated/Coughed Gram Stain - Final 10/08/20 21:30 Sputum, Expectorated/Coughed Respiratory Culture - Final Coag Negative Staph Presumptive C albicans Laboratory Results 10/09/20 05:32: Vitamin B12 608 10/11/20 07:37: POC Glucose 89 Current Medications Albuterol Sulfate (Albuterol 2.5 Mg/3 Ml Vial.Neb.) 2.5 mg INHALATION Q2H PRN PRN PRN Reason: SOB/Wheezing Amlodipine Besylate (Amlodipine 5 Mg Tablet) 5 mg PO DAILY [facility] Last Admin: 10/11/20 10:03 Dose: 5 mg Documented by: Aspirin (Aspirin 300 Mg Suppository) 300 mg RC DAILY [facility] Last Admin: 10/11/20 11:40 Dose: Not Given Documented by: Carbidopa/Levodopa (Carbidopa/Levodopa Cr 50/200 Tablet) 0.5 tablet PO TIDAC [facility] Last Admin: 10/11/20 10:03 Dose: 0.5 tablet Documented by: Enoxaparin Sodium (Enoxaparin 40 Mg/0.4 Ml Syringe) 40 mg SC DAILY [facility] Last Admin: 10/11/20 10:03 Dose: 40 mg Documented by: Hydralazine HCl (Hydralazine 20 Mg/Ml Vial) 5 mg IV Q30M PRN PRN Reason: to maintain BP goals Sodium Chloride () 500 mls @ 999 mls/hr IV .Q31M ONE Last Infusion: 10/08/20 21:11 Dose: Infused Documented by: Sodium Chloride () 1,000 mls @ 60 mls/hr IV .[id number] [facility] Last Admin: 10/11/20 06:58 Dose: 60 mls/hr Documented by: Ampicillin Sodium/Sulbactam (Sodium 3 gm/ Sodium Chloride) 112 mls @ 150 mls/hr IV Q6 [facility] Last Infusion: 10/11/20 06:46 Dose: Infused Documented by: Valproic Acid 250 mg/ Dextrose 52.5 mls @ 50 mls/hr IV BID [facility] Last Admin: 10/11/20 10:07 Dose: 50 mls/hr Documented by: Labetalol HCl (Labetalol (Prefilled) 20 Mg/4 Ml) 10 - 20 mg IV Q10M PRN PRN PRN Reason: to Maintain BP Goals Lorazepam (Lorazepam 2 Mg/Ml Syringe) 1 mg IV Q8H PRN PRN PRN Reason: ANXIETY Last Admin: 10/10/20 17:06 Dose: 1 mg Documented by: Losartan Potassium (Losartan Potassium 100 Mg Tablet) 100 mg PO DAILY [facility] Last Admin: 10/11/20 10:03 Dose: 100 mg Documented by: Metoprolol Tartrate (Metoprolol Tartrate 5 Mg/5 Ml Vial) 5 mg IV Q4 [facility] Last Admin: 10/11/20 10:04 Dose: 5 mg Documented by: Mirtazapine (Mirtazapine 15 Mg Tablet) 7.5 mg PO QHS [facility] Last Admin: 10/10/20 19:44 Dose: 7.5 mg Documented by: Ondansetron HCl (Ondansetron 4 Mg/2 Ml Vial) 4 mg IV Q8H PRN PRN PRN Reason: NAUSEA/VOMITING Sodium Chloride (0.9% Saline Lock 10 Ml Syringe) 10 - 40 ml IV UD PRN PRN Reason: SALINE FLUSH STROKE Vital Signs/Narrative: Vital Signs Pulse 10/11/20 10:49 92 10/11/20 10:04 85 Medical Necessity - Tobacco Use Smoking Status: Former smoker Assessment/Plan All Active Problems Hyponatremia (Acute) Aspiration pneumonia (Acute) Dysphagia (Acute) Stroke-like symptoms (Acute) Acute hyponatremia (Acute) Elevated troponin (Acute) Patient is an 79-year-old lady with underlying history of bipolar disorder who was transferred from the transitional care unit to the ED with altered mental status, difficulty swallowing as well as drooling. Admitted to monitored bed for subsequent management 1. Strokelike symptoms ?Patient was placed on NIH score, underwent subsequent evaluation with both CT MRI of the brain both negative for acute CVA. Patient was seen in consultation by SOC telemedicine (neurology) plan is for patient to undergo subsequent evaluation with EEG 2. Suspected aspiration pneumonia ?Patient placed on Unasyn 3. Hypertension - Blood pressure controlled, home medications continued with dose adjustment as needed 4. Dyslipidemia -Patient is on statin therapy, continued at home dose 5. Chronically elevated troponin 6. Parkinson's disease ?Patient is on immediate continue 7. Acute encephalopathy ?Patient was on Xanax discontinued was on Zyprexa held as well 8. Suspected dementia 9. DVT prophylaxis ?Lovenox Inpatient E&M: [id number] Subs Hosp L2
--- NOTE | 2020-10-11 13:56 | NURSING ---
pt agitated wont allow staff to provide care. speaking random words pushing staff away,
[2020-10-11] MEDS: Haloperidol Lactate 5 MG/ML Vial 2 MG IM ×2 (14:10→22:19)
--- NOTE | 2020-10-11 14:56 | CPS ---
Tried to do an EEG pt combative Dr. Oviedo notified and 2 mg Haldol given IM attempted again and pt still combative would not let you touch her and she was babbling. was notified again and he said to try in the AM if unable then can be discontinued.
--- NOTE | 2020-10-11 15:46 | CASEMGMT ---
KAILA CAMPBELL Readmission Note: Pt was admitted on 09/21/20-09/28/20 for hyponatremia. Pt was DC'd to TCU. Pt returned on 10/09/20 for stroke-like symtoms. Plan to return to TCU. KAILA CAMPBELL to follow.
--- NOTE | 2020-10-11 15:50 | CASEMGMT ---
Pt qualifies for Palliative referral per [facility] palliative screening tool and Dr. Oviedo is agreeable at this time. Pallative referral faxed and palliative updated, voice understanding. Elan BRIGHT CM
--- NOTE | 2020-10-11 17:00 | NURSING ---
This RN taking over care of pt at this time.
[2020-10-11] MEDS: OLANZapine 10 MG Tablet PO (22:04)
[2020-10-11] MEDS: Divalproex (ER) 500 MG Tablet PO (22:05)
[2020-10-11] MEDS: Mirtazapine 15 MG Tablet 7.5 MG PO (22:05)
[2020-10-11] MEDS: proMETHazine 25 MG/ML Syringe 12.5 MG IV (23:09)
[2020-10-11] MEDS: 0.9% Saline Lock 10 ML Syringe IV (23:09)
--- NOTE | 2020-10-11 23:10 | PCM.HOSP.N ---
Hospitalist Note The nursing staff called that patient is agitated, restless, in delirium state, hyperactive, trying to get out of the bed. Patient is already on Zyprexa, Remeron and divalproex. She got the night dose of Zyprexa and Remeron. Promethazine 12.5 mg IV 1 dose and reevaluate after half an hour and if she still agitated, repeat the dose.
[2020-10-12] VITALS (16 sets, daily range): BP systolic 135–157; BP diastolic 65–84; PULSE 79–104; RESP 16–18; TEMP 36.6–37.5; O2SAT 94–96
[2020-10-12] MEDS: Metoprolol Tartrate 5 MG/5 ML Vial IV ×6 (01:53→22:28)
[2020-10-12] MEDS: 0.9% Normal Saline 1,000 ML 60 ML IV ×2 (01:54→21:07)
--- NOTE | 2020-10-12 07:37 | PN_ITS ---
Patient Problems: Active and Suspected Problems Hyponatremia (Acute) Aspiration pneumonia (Acute) Dysphagia (Acute) Stroke-like symptoms (Acute) Acute hyponatremia (Acute) Elevated troponin (Acute) Reason for Visit: Acute delirium Subjective: Seen per nursing staff had a rough night and confusion and had to be moved closer to the nursing station. Patient however appears much calmer this a.m. and is more coherent compared to the day prior. Did review patient medications with discontinuation of Sinemet which was recently initiated. Objective: GENERAL: in no apparent distress, cooperative HEENT: Atraumatic; EYES; Anicteric, Normal Conjunctiva NECK; supple, normal thyroid, RESPIRATORY: Diminished to auscultation CARDIOVASCULAR: Regular S1 S2, GI: soft, normoactive bowel sounds, : No Renal angle tenderness; EXTREMITIES: No edema, no clubbing, MUSCULOSKELETAL: no muscle waisting NEURO: Awake; no lateralizing signs. SKIN: No Rash PSYCH; flat affect Vitals/I&O's: Vital Signs Temp Pulse Resp BP Pulse Ox 98.9 F 98 18 151/82 H 96 10/12/20 05:47 10/12/20 05:51 10/12/20 05:47 10/12/20 05:47 10/12/20 07:32 Oxygen Flow Rate (L/min) 2 Oxygen Delivery Method Nasal Cannula Weight: 66.3 kg Body Mass Index (BMI) 24.3 Finger Stick Blood Glucose 97 Intake and Output for Last 24 Hours 10/10/20 10/11/20 10/12/20 23:59 23:59 23:59 Intake Total 1228.0 / 1228.0 2552.5 / 2552.5 565 / 565 Output Total 1350 / 1350 550 / 550 Balance -122.0 / -122.0 2001. / 2001. 565 / 565 Microbiology Past 72 Hours 10/08/20 21:30 Sputum, Expectorated/Coughed Gram Stain - Final 10/08/20 21:30 Sputum, Expectorated/Coughed Respiratory Culture - Final Coag Negative Staph Presumptive C albicans Laboratory Results 10/09/20 05:32: Vitamin B12 608 10/11/20 07:37: POC Glucose 89 Current Medications Albuterol Sulfate (Albuterol 2.5 Mg/3 Ml Vial.Neb.) 2.5 mg INHALATION Q2H PRN PRN PRN Reason: SOB/Wheezing Amlodipine Besylate (Amlodipine 5 Mg Tablet) 5 mg PO DAILY [facility] Last Admin: 10/11/20 10:03 Dose: 5 mg Documented by: Divalproex Sodium (Divalproex (Er) 500 Mg Tablet) 500 mg PO QHS [facility] Last Admin: 10/11/20 22:05 Dose: 500 mg Documented by: Enoxaparin Sodium (Enoxaparin 40 Mg/0.4 Ml Syringe) 40 mg SC DAILY [facility] Last Admin: 10/11/20 10:03 Dose: 40 mg Documented by: Hydralazine HCl (Hydralazine 20 Mg/Ml Vial) 5 mg IV Q30M PRN PRN Reason: to maintain BP goals Sodium Chloride () 500 mls @ 999 mls/hr IV .Q31M ONE Last Infusion: 10/08/20 21:11 Dose: Infused Documented by: Sodium Chloride () 1,000 mls @ 60 mls/hr IV .[id number] [facility] Last Infusion: 10/12/20 06:38 Dose: 60 mls/hr Documented by: Ampicillin Sodium/Sulbactam (Sodium 3 gm/ Sodium Chloride) 112 mls @ 150 mls/hr IV Q6 [facility] Last Infusion: 10/12/20 06:38 Dose: Infused Documented by: Labetalol HCl (Labetalol (Prefilled) 20 Mg/4 Ml) 10 - 20 mg IV Q10M PRN PRN PRN Reason: to Maintain BP Goals Losartan Potassium (Losartan Potassium 100 Mg Tablet) 100 mg PO DAILY [facility] Last Admin: 10/11/20 10:03 Dose: 100 mg Documented by: Metoprolol Tartrate (Metoprolol Tartrate 5 Mg/5 Ml Vial) 5 mg IV Q4 [facility] Last Admin: 10/12/20 05:51 Dose: 5 mg Documented by: Mirtazapine (Mirtazapine 15 Mg Tablet) 7.5 mg PO QHS [facility] Last Admin: 10/11/20 22:05 Dose: 7.5 mg Documented by: Olanzapine (Olanzapine 2.5 Mg Tablet) 2.5 mg PO DAILY [facility] Olanzapine (Olanzapine 10 Mg Tablet) 10 mg PO QHS [facility] Last Admin: 10/11/20 22:04 Dose: 10 mg Documented by: Ondansetron HCl (Ondansetron 4 Mg/2 Ml Vial) 4 mg IV Q8H PRN PRN PRN Reason: NAUSEA/VOMITING Sodium Chloride (0.9% Saline Lock 10 Ml Syringe) 10 - 40 ml IV UD PRN PRN Reason: SALINE FLUSH Last Admin: 10/11/20 23:09 Dose: 10 ml Documented by: STROKE Vital Signs/Narrative: Vital Signs Temp Pulse Resp BP Pulse Ox 10/12/20 07:32 96 10/12/20 05:51 98 10/12/20 05:47 98.9 F 98 18 151/82 H 94 Medical Necessity - Tobacco Use Smoking Status: Former smoker Assessment/Plan All Active Problems Hyponatremia (Acute) Aspiration pneumonia (Acute) Dysphagia (Acute) Stroke-like symptoms (Acute) Acute hyponatremia (Acute) Elevated troponin (Acute) Patient is an 79-year-old lady with underlying history of bipolar disorder who was transferred from the transitional care unit to the ED with altered mental status, difficulty swallowing as well as drooling. Admitted to monitored bed for subsequent management 1. Strokelike symptoms ?Patient was placed on NIH score, underwent subsequent evaluation with both CT MRI of the brain both negative for acute CVA. Patient was seen in consultation by SOC telemedicine (neurology) plan is for patient to undergo subsequent ev aluation with EEG 2. Suspected aspiration pneumonia ?Patient placed on Unasyn 3. Hypertension - Blood pressure controlled, home medications continued with dose adjustment as needed 4. Dyslipidemia -Patient is on statin therapy, continued at home dose 5. Chronically elevated troponin 6. Parkinson's disease ?Patient is on immediate continue 7. Acute encephalopathy ?Patient was on Xanax discontinued was on Zyprexa held as well -10/12/2020; seen per nursing staff had a rough night and confusion and had to be moved closer to the nursing station. Patient however appears much calmer this a.m. and is more coherent compared to the day prior. Did review patient medications with discontinuation of Sinemet which was recently initiated. Did restart patient Zyprexa 8. Suspected dementia 9. Acute cystitis ?Patient is on Unasyn 10. DVT prophylaxis ?Lovenox Inpatient E&M: [id number] [facility] Hosp L2
[2020-10-12] MEDS: Enoxaparin 40 MG/0.4 ML Syringe SC (08:42)
[2020-10-12] MEDS: OLANZapine 2.5 MG Tablet PO (08:43)
[2020-10-12] MEDS: Losartan Potassium 100 MG Tablet PO (08:44)
[2020-10-12] MEDS: amLODIPine 5 MG Tablet PO (08:47)
--- NOTE | 2020-10-12 09:07 | TELEMED_ITS ---
SOC Telemed has confirmed receipt of a request for visit. This document confirms receipt of the order initiating the consult. To find the results of the consultation, please view the patient's reports for the scanned Telemed Consult.
[2020-10-12 09:19] LABS: Hematocrit 29.9 % (37-47); Hemoglobin 10.2 g/dL (12.0-15.0); Mean Corp Hgb Conc 34.1 g/dL (32-36); Mean Corpuscular Hgb 34.1 pg (27.0-32.0); Mean Platelet Vol. 8.8 fl (6.2-12.0); Platelet Count 232 K/mm3 (150-450); RBC Distribution Width CV 14.2 % (11.6-14.6); RBC Distribution Width SD 51.1 fl (35.1-43.9); Red Blood Count 2.99 M/mm3 (4.2-5.4); White Blood Count 5.3 K/mm3 (4.4-11.0)
[2020-10-12 09:29] LABS: Scan Indicated on CBC? Y/N NO
[2020-10-12 09:42] LABS: Anion Gap 7 (5-15); BUN 10 mg/dL (7-18); BUN/Creat Ratio 14.3 RATIO (10-20); Chloride 103 mmol/L (98-107); EST Glomerular Filtration Rate 85 mL/min (>60); Est Glom Filt Rate - Afr Amer 103 mL/min (>60); Glucose 122 mg/dL (74-106); Magnesium 1.7 mg/dL (1.6-2.6); Potassium 3.1 mmol/L (3.5-5.1); Sodium Level 138 mmol/L (136-145)
[2020-10-12] MEDS: Haloperidol Lactate 5 MG/ML Vial 2 MG IV (13:45)
--- NOTE | 2020-10-12 14:30 | NURSING ---
Sitter placed due to patient yelling and attempting to get out of bed.
--- NOTE | 2020-10-12 14:44 | CASEMGMT ---
CORINE called patient's son, Josafat. CORINE spoke with him about patient's intermodal dispatcher plan. CORINE told him she is not getting better. CORINE explained TCU CORINE Courtney spoke with [facility] and they are not going to be able to take her back if she continues to be this much care and her cognition does not improve. CORINE explained it may be beneficial if she would go to a custodial where she could stay halfway if needed. He said they hoped she would get better so she could go back to assisted living. He said he feels if they get her Psych meds right she would probably be fine. CORINE told him having her go to another SNF is something to think about in the event she continues to not improve. He thanked CORINE for the call. Felicia CROWDER
[2020-10-12] MEDS: Haloperidol Lactate 5 MG/ML Vial 2 MG IM (18:40)
[2020-10-12] MEDS: Divalproex (ER) 500 MG Tablet PO (22:29)
[2020-10-12] MEDS: Mirtazapine 15 MG Tablet 7.5 MG PO (22:29)
[2020-10-12] MEDS: OLANZapine 10 MG Tablet PO (22:29)
[2020-10-13] VITALS (15 sets, daily range): BP systolic 136–171; BP diastolic 64–108; PULSE 72–117; RESP 16–18; TEMP 36.3–37.4; O2SAT 92–95
[2020-10-13] MEDS: Haloperidol Lactate 5 MG/ML Vial 2 MG IV ×2 (01:47→04:07)
[2020-10-13] MEDS: Metoprolol Tartrate 5 MG/5 ML Vial IV ×5 (02:26→17:40)
[2020-10-13] MEDS: proMETHazine 25 MG/ML Syringe 12.5 MG IV (04:07)
[2020-10-13 06:17] LABS: Hematocrit 31.6 % (37-47); Hemoglobin 10.5 g/dL (12.0-15.0); Mean Corp Hgb Conc 33.2 g/dL (32-36); Mean Corpuscular Hgb 33.8 pg (27.0-32.0); Mean Corpuscular Volume 101.6 fL (81-99); Mean Platelet Vol. 8.8 fl (6.2-12.0); Platelet Count 223 K/mm3 (150-450); RBC Distribution Width CV 14.4 % (11.6-14.6); RBC Distribution Width SD 53.3 fl (35.1-43.9); Red Blood Count 3.11 M/mm3 (4.2-5.4); White Blood Count 6.2 K/mm3 (4.4-11.0)
[2020-10-13 06:55] LABS: Anion Gap 6 (5-15); BUN 6 mg/dL (7-18); BUN/Creat Ratio 10.2 RATIO (10-20); Calcium,Total 8.2 mg/dL (8.5-10.1); Chloride 102 mmol/L (98-107); Creatinine, Serum 0.59 mg/dL (0.55-1.02); EST Glomerular Filtration Rate 105 mL/min (>60); Est Glom Filt Rate - Afr Amer 127 mL/min (>60); Glucose 97 mg/dL (74-106); Magnesium 1.7 mg/dL (1.6-2.6); Potassium 2.6 mmol/L (3.5-5.1); Sodium Level 139 mmol/L (136-145)
[2020-10-13 07:47] LABS: Phosphorus 2.7 mg/dL (2.5-4.9)
[2020-10-13] MEDS: Potassium Chloride 10mEq/100mL 10 MEQ/100 ML IV.SOLN. 100 MEQ IV BOLUS ×4 (08:03→12:38)
[2020-10-13] MEDS: Haloperidol Lactate 5 MG/ML Vial 1 MG IM (08:05)
--- NOTE | 2020-10-13 08:51 | PCM.PN.HOSP ---
Patient Problems: Active and Suspected Problems Hyponatremia (Acute) Aspiration pneumonia (Acute) Dysphagia (Acute) Stroke-like symptoms (Acute) Acute hyponatremia (Acute) Elevated troponin (Acute) Reason for Visit: Delirium Hypokalemia Subjective: Patient to be relatively calm back to baseline in the morning she however became very delirious during the evening. Patient did receive Haldol for agitation. This a.m. diagnostic data significant for potassium of 2.9 repletion initiated Objective: GENERAL: Delirious HEENT: Atraumatic; EYES; Anicteric, Normal Conjunctiva NECK; supple, normal thyroid, RESPIRATORY: Diminished to auscultation CARDIOVASCULAR: Regular S1 S2, GI: soft, normoactive bowel sounds, : No Renal angle tenderness; EXTREMITIES: No edema, no clubbing, MUSCULOSKELETAL: no muscle waisting NEURO: Awake; no lateralizing signs. SKIN: No Rash PSYCH; delirious Vitals/I&O's: Vital Signs Temp Pulse Resp BP Pulse Ox 99.3 F H 97 16 168/96 H 95 10/13/20 04:25 10/13/20 07:24 10/13/20 04:25 10/13/20 04:25 10/13/20 04:25 Oxygen Flow Rate (L/min) 2 Oxygen Delivery Method Room Air Weight: 66.3 kg Body Mass Index (BMI) 24.3 Finger Stick Blood Glucose 97 Intake and Output for Last 24 Hours 10/11/20 10/12/20 10/13/20 23:59 23:59 23:59 Intake Total 2552.5 / 2552.5 1551 / 1551 284 / 284 Output Total 550 / 550 Balance 2001.5 / 2001. 1551 / 1551 284 / 284 Microbiology Past 72 Hours 10/08/20 21:30 Sputum, Expectorated/Coughed Gram Stain - Final 10/08/20 21:30 Sputum, Expectorated/Coughed Respiratory Culture - Final Coag Negative Staph Presumptive C albicans Laboratory Results 10/12/20 09:08: WBC 5.3, RBC 2.99 L, Hgb 10.2 L, Hct 29.9 L, MCV 100.0 H, MCH 34.1 H, MCHC 34.1 D, RDW Std Deviation 51.1 H, RDW Coeff of Pelno 14.2, Plt Count 232, MPV 8.8 10/12/20 09:08: Sodium 138, Potassium 3.1 L, Chloride 103, Carbon Dioxide 28.0, Anion Gap 7, BUN 10, Creatinine 0.70, Estim Creat Clear Calc 39.70, Est GFR (MDRD) Af Amer 103, Est GFR (MDRD) Non-Af 85, BUN/Creatinine Ratio 14.3, Glucose 122 H, Calcium 8.0 L, Magnesium 1.7 10/13/20 06:08: WBC 6.2, RBC 3.11 L, Hgb 10.5 L, Hct 31.6 L, MCV 101.6 H, MCH 33.8 H, MCHC 33.2, RDW Std Deviation 53.3 H, RDW Coeff of Pelon 14.4, Plt Count 223, MPV 8.8 10/13/20 06:08: Sodium 139, Potassium 2.6 L*, Chloride 102, Carbon Dioxide 31.0, Anion Gap 6, BUN 6 L, Creatinine 0.59, Estim Creat Clear Calc 39.70, Est GFR (MDRD) Af Amer 127, Est GFR (MDRD) Non-Af 105, BUN/Creatinine Ratio 10.2, Glucose 97, Calcium 8.2 L, Magnesium 1.7 10/13/20 06:08: Phosphorus 2.7 Current Medications Albuterol Sulfate (Albuterol 2.5 Mg/3 Ml Vial.Neb.) 2.5 mg INHALATION Q2H PRN PRN PRN Reason: SOB/Wheezing Amlodipine Besylate (Amlodipine 5 Mg Tablet) 5 mg PO DAILY [facility] Last Admin: 10/12/20 08:47 Dose: 5 mg Documented by: Divalproex Sodium (Divalproex (Er) 500 Mg Tablet) 500 mg PO QHS [facility] Last Admin: 10/12/20 22:29 Dose: 500 mg Documented by: Enoxaparin Sodium (Enoxaparin 40 Mg/0.4 Ml Syringe) 40 mg SC DAILY [facility] Last Admin: 10/12/20 08:42 Dose: 40 mg Documented by: Haloperidol Lactate (Haloperidol Lactate 5 Mg/Ml Vial) 1 mg IM Q4H PRN PRN PRN Reason: AGITATION Last Admin: 10/13/20 08:05 Dose: 1 mg Documented by: Hydralazine HCl (Hydralazine 20 Mg/Ml Vial) 5 mg IV Q30M PRN PRN Reason: to maintain BP goals Sodium Chloride () 500 mls @ 999 mls/hr IV .Q31M ONE Last Infusion: 10/08/20 21:11 Dose: Infused Documented by: Sodium Chloride () 1,000 mls @ 60 mls/hr IV .[id number] [facility] Last Admin: 10/12/20 21:07 Dose: 60 mls/hr Documented by: Potassium Chloride () 10 meq in 100 mls @ 100 mls/hr IV BOLUS Q1H [facility] Stop: 10/13/20 11:29 Last Admin: 10/13/20 08:03 Dose: 100 mls/hr Documented by: Labetalol HCl (Labetalol (Prefilled) 20 Mg/4 Ml) 10 - 20 mg IV Q10M PRN PRN PRN Reason: to Maintain BP Goals Losartan Potassium (Losartan Potassium 100 Mg Tablet) 100 mg PO DAILY [facility] Last Admin: 10/12/20 08:44 Dose: 100 mg Documented by: Metoprolol Tartrate (Metoprolol Tartrate 5 Mg/5 Ml Vial) 5 mg IV Q4 [facility] Last Admin: 10/13/20 05:53 Dose: 5 mg Documented by: Mirtazapine (Mirtazapine 15 Mg Tablet) 7.5 mg PO QHS [facility] Last Admin: 10/12/20 22:29 Dose: 7.5 mg Documented by: Potassium Chloride (Potassium Chloride Oral Tablet 20 Meq) 20 meq PO BIDCM [facility] Sodium Chloride (0.9% Saline Lock 10 Ml Syringe) 10 - 40 ml IV UD PRN PRN Reason: SALINE FLUSH Last Admin: 10/11/20 23:09 Dose: 10 ml Documented by: STROKE Vital Signs/Narrative: Vital Signs Pulse 10/13/20 07:24 97 10/13/20 05:53 87 Medical Necessity - Tobacco Use Smoking Status: Former smoker Assessment/Plan All Active Problems Hyponatremia (Acute) Aspiration pneumonia (Acute) Dysphagia (Acute) Stroke-like symptoms (Acute) Acute hyponatremia (Acute) Elevated troponin (Acute) Patient is an 79-year-old lady with underlying history of bipolar disorder who was transferred from the transitional care unit to the ED with altered mental status, difficulty swallowing as well as drooling. Admitted to monitored bed for subsequent management 1. . Acute encephalopathy ?Patient was on Xanax discontinued was on Zyprexa held as well -10/12/2020; seen per nursing staff had a rough night and confusion and had to be moved closer to the nursing station. Patient however appears much calmer this a.m. and is more coherent compared to the day prior. Did review patient medications with discontinuation of Sinemet which was recently initiated. Did restart patient Ivone -10/13/2020 remains significantly delirious do suspect patient may be having acute exacerbation of her bipolar disorder. Will benefit from crisis eval and possibly psych admission consult subsequently placed with case management to assist with disposition 2. Suspected aspiration pneumonia ?Patient placed on Unasyn 3. Hypertension - Blood pressure controlled, home medications continued with dose adjustment as needed 4. Dyslipidemia -Patient is on statin therapy, continued at home dose 5. Chronically elevated troponin 6. Parkinson's disease ?Patient is on immediate continue 7. Strokelike symptoms ?Patient was placed on NIH score, underwent subsequent evaluation with both CT MRI of the brain both negative for acute CVA. Patient was seen in consultation by [facility] telemedicine (neurology) plan is for patient to undergo subsequent evaluation with EEG ?10/13/2020; the EEG supported diagnosis of mild global encephalopathy of nonspecific etiology which could be seen in toxic, metabolic as well as diffuse in both focal structural process, no epileptiform potentials were observed 8. Suspected dementia 9. Acute cystitis ?Patient is on Unasyn 10. DVT prophylaxis ?Lovenox 1. Hypokalemia ?Corrected per protocol Inpatient E&M: [id number] [facility] Hosp L3
[2020-10-13] MEDS: Enoxaparin 40 MG/0.4 ML Syringe SC (09:24)
--- NOTE | 2020-10-13 10:05 | CASEMGMT ---
During rounds this am it was recommended we pursue [facility] placement. CORINE called Crisis at [facility] and made referral to Marie. CORINE also faxed information to her per her request. [facility] evaluation. Felicia KABA MSW
--- NOTE | 2020-10-13 12:05 | CASEMGMT ---
Patient's son Kun was here to see patient. Physician spoke with him and let him know we are working on Psych unit placement. Physician asked SW to talk with patient's son. SW met with patient's son, introduced self and role at [facility]. SW let him know the [facility] has a crisis team and they are working on placement. SW told him that they should contact him or his brother to discuss this. SW also let him know SW just called their office and no one was available at the moment. SW told him as SW finds out more information SW can let him know. Felicia KABA MSW
[2020-10-13] MEDS: Potassium Chloride Oral Tablet 20 MEQ 40 MEQ PO (12:38)
[2020-10-13] MEDS: amLODIPine 5 MG Tablet PO (12:38)
[2020-10-13] MEDS: Losartan Potassium 100 MG Tablet PO (12:38)
[2020-10-13] MEDS: OLANZapine 2.5 MG Tablet PO (12:38)
--- NOTE | 2020-10-13 12:53 | CASEMGMT ---
CORINE received a return call from [facility] with [facility]. She asked for a little bit of a background on situation. CORINE filled her in on patient. CORINE told her patient's son is here at [facility]. She plans on calling to patient's room and will talk with son and try and talk with patient. CORINE went to patient's room and let patient's son know Adele from [facility] will be calling in to talk with him. Felicia KABA MSW
--- NOTE | 2020-10-13 13:14 | CON.PCM_ITS ---
History of Present Illness Date of Consult: 10/13/20 Requesting physician: [] Primary care physician: Dr. Edu Hdz MD - History of Present Illness The patient is a 79 year old female admitted on 10/08/20 with drooling and dysphagia. A stroke was suspected but scans were negative. She had a recent hospitalization for hyponatremia, and sodium was not as low as it had been before. She has a history of bipolar disorder and lives in assisted living. During her stay, she has had periods of significant confusion. This morning, she is quite confused, has pressured speech, and needs a 1:1 nurse to prevent her from removing her IV. She is speaking rapidly but mostly nonsensically. A geropsych hospitalization is being pursued. She was not able to answer questions about pain or whether she slept well last night. Patient Problems: Chronic Problems Debility (Chronic) Anxiety (Chronic) Bipolar disorder (Chronic) DVT (deep venous thrombosis) (Chronic) Hiatal hernia (Chronic) HTN (hypertension) (Chronic) Bipolar disorder (Chronic) Anxiety disorder (Chronic) History of DVT (deep vein thrombosis) (Chronic) Coronary artery disease (Chronic) Surgical History: angioplasty, hysterectomy, total hip arthroplasty Psychiatric History: Anxiety, Bipolar, Depression Home Medications: Ambulatory Orders Medication Instructions Recorded Olanzapine [Zyprexa] 2.5 mg PO DAILY 08/12/16 Olanzapine [Zyprexa] 10 mg PO QHS 08/12/16 Senna [Senokot] 2 tablet PO BID 08/12/16 Timolol 0.5% [Timoptic] 1 drop EACH EYE BID 01/16/17 ALPRAZolam [Xanax] 0.5 mg PO TID PRN #9 tablet 01/19/17 Divalproex Sodium 500 mg PO QHS 09/21/20 Metoprolol Tartrate [Lopressor 100 mg PO BID 09/21/20 (beta casa)] Trazodone HCl 100 - 200 mg PO QHS 09/21/20 Aspirin E.C. [Ecotrin] 81 mg PO DAILY@0800 09/28/20 Amlodipine [Norvasc] 5 mg PO DAILY 10/08/20 Bisacodyl 10 mg RC DAILY PRN PRN 10/08/20 Losartan Potassium [Cozaar] 100 mg PO DAILY 10/08/20 Magnesium Hydroxide [Milk Of 30 ml PO DAILY PRN PRN 10/08/20 Magnesia] Menthol/Zinc Oxide [Calmoseptine 71 gm TP BID 10/08/20 Ointment] Mirtazapine 7.5 mg PO QHS 10/08/20 Nystatin [Nystop] 1 applic TP BID 10/08/20 Polyethylene Glycol 3350 [Miralax] 17 gm PO DAILY 10/08/20 Allergies ciprofloxacin [From Cipro] Allergy (Verified 10/08/20 18:33) Itching sulfamethoxazole [From Bactrim] Allergy (Verified 10/08/20 18:33) Itching trimethoprim [From Bactrim] Allergy (Verified 10/08/20 18:33) Itching Paternal History Items: - - Denies known paternal medical history including cardiac history. Maternal History Items: - - Denies known maternal medical history including cardiac hist ory. - Social History Lives: - - rehab currently Smoking Status: Former smoker Review of Systems Unable to obtain accurate/complete ROS d/t: mental status Physical Exam General: Alert, Confused, Disoriented, - - rapid/pressured speech, at times she reads words from the television, but speech is mostly rambling and nonsensical (it's words, just not in sentences that make sense) Psych/Mental Status: Agitated, Anxious, - - Patient startles easily, put her hands up when I showed her my stethascope, would not let me examine her. She removed the gauze over her IV when I was in the room, which was replaced by her nurse. She is pulling at a ring on her finger, there is some skin irritation in the area under the ring Objective: Vital Signs Temp Pulse Resp BP Pulse Ox 98.4 F 117 H 18 171/108 H 92 10/13/20 09:30 10/13/20 09:30 10/13/20 09:30 10/13/20 09:30 10/13/20 09:30 Oxygen Flow Rate (L/min) 2 Oxygen Delivery Method Room Air Weight: 66.3 kg Body Mass Index (BMI) 24.3 Finger Stick Blood Glucose 97 Intake and Output for Last 24 Hours 10/11/20 10/12/20 10/13/20 23:59 23:59 23:59 Intake Total 2552.5 / 2552.5 1551 / 1551 824 / 824 Output Total 550 / 550 290 / 290 Balance 1551 / 1551 534 / 534 Microbiology Past 72 Hours 10/08/20 21:30 Gram Stain - Final Sputum, Expectorated/Coughed Respiratory Culture - Final Coag Negative Staph Presumptive C albicans Laboratory Tests Past 24 Hrs 10/13/20 10/13/20 10/13/20 06:08 06:08 06:08 WBC 6.2 RBC 3.11 L Hgb 10.5 L Hct 31.6 L MCV 101.6 H MCH 33.8 H MCHC 33.2 RDW Std Deviation 53.3 H RDW Coeff of Pelon 14.4 Plt Count 223 MPV 8.8 Sodium 139 Potassium 2.6 L* Chloride 102 Carbon Dioxide 31.0 Anion Gap 6 BUN 6 L Creatinine 0.59 Estim Creat Clear Calc 39.70 Est GFR (MDRD) Af Amer 127 Est GFR (MDRD) Non-Af 105 BUN/Creatinine Ratio 10.2 Glucose 97 Calcium 8.2 L Phosphorus 2.7 Magnesium 1.7 Assessment/Plan All Active Problems Hyponatremia (Acute) Aspiration pneumonia (Acute) Dysphagia (Acute) Stroke-like symptoms (Acute) Acute hyponatremia (Acute) Elevated troponin (Acute) 79 year old female with bipolar disorder, dysphagia, aspiration, recent hyponatremia, etc. May have some encephalopathy from prior hyponatremia. I tried to call her son Josafat for further history but did not reach him and no voice mail was set up Agitation - hospitalist evaluating for underlying causes. [facility]. Palliative may be able to help assist with follow up/med management after she returns - it is unclear if she sees psychiatry or not. She was recently on Sinemet - I am unsure why. Now on olanzapine (was at home as well) but if she has Parkinson's, Seroquel may be a better choice as it has less dopamine activity and is less likely to flare movement issues - however, I don't see a diagnosis of Parkinson's. Will not adjust meds now as she is likely headed to [facility] soon, but if this is delayed would consider adding benzos (she had been on Xanax before) and PRN Seroquel or haloperidol. It's unclear if she has dementia or just bipolar and is manic - will continue to try to reach out to son Anorexia - intake decreased, may be related to the acute agitation/psychiatric issues Weakness - fall risk, codey while more confused.
--- NOTE | 2020-10-13 13:23 | CASEMGMT ---
sql application developer Kiah said [facility] called in and asked to talk with patient's son. Adele told Kiah they are going to pursue [facility] placement. Felicia KABA MSW
[2020-10-13] MEDS: ALPRAZolam 0.5 MG Tablet PO (13:41)
[2020-10-13] MEDS: 0.9% Normal Saline 1,000 ML 60 ML IV (15:22)
[2020-10-13 16:19] LABS: Bacteria 0 SEEN /hpf (None Seen); Mucous, Urine 0 SEEN /hpf (<or=2+); Red Blood Cells-Urine 0 SEEN /hpf (0-5); Squamous Epithelial Cells - UA 0 SEEN /hpf (5-10)
[2020-10-13 16:30] LABS: Color, Urine Yellow (Yellow); Glucose, Dipstick Normal (Normal); Ketone-Dipstick 5 mg/dl (Negative); Leukocyte Esterase-Dipstick 25 /ul (Negative); Nitrite-Dipstick Negative (Negative); Occult Blood-Urine Negative /ul (Negative); Protein-Dipstick 30 mg/dl (Negative); Urine Bilirubin Dipstick Negative (Negative); Urine Urobilinogen Normal (Normal)
[2020-10-13 16:35] LABS: Urine Clarity Clear (Clear)
[2020-10-13 16:37] LABS: White Blood Cells 5-10 SEEN /hpf (0-5)
[2020-10-13] MEDS: Potassium Chloride Oral Tablet 20 MEQ PO (17:40)
--- NOTE | 2020-10-13 18:51 | CASEMGMT ---
SOCIAL WORK Received call from Adele on PCU this evening. Patient's son upset stating Crisis lied to him about [facility] not having beds. Son does not wish for patient to go to [facility] (where Crisis has obtained placement for patient). This worker spoke with Crisis. [facility] reviewed case and was unable to accommodate patient's needs. Call to patient's son, [facility]Kn. Explained referral process for [facility] hospitalization and that hospitals accept on a case by case basis. Informed son that a hospital may have beds, but unable to accommodate patient's physical needs. Discussed patient's status mentally and physically. At end of conversation, son verbalized understanding and thanked this worker for call and explanation of referral process. Revillo Slip completed by Dr. North and faxed to [facility]. Crisis and PCU staff updated. Plan: Assurance per Crisis Matthew Bejarano, AIR BATTLE MANAGER, HISTORY FACULTY MEMBER
--- NOTE | 2020-10-13 18:55 | NURSING ---
Called [facility] and report given to nurse Haja to nurse report number [phone]. He would like a discharge medication list faxed [phone].
--- NOTE | 2020-10-13 19:00 | NURSING ---
All documentation, medication administration, and patient care completed by Ellie Espinoza, Student nurse, on 10/14 done under the supervision of this RN.
--- NOTE | 2020-10-14 07:11 | DS.PCM_ITS ---
Discharge Date and Diagnosis - Problem List Patient Problems: Active and Suspected Problems Hyponatremia (Acute) Aspiration pneumonia (Acute) Dysphagia (Acute) Stroke-like symptoms (Acute) Acute hyponatremia (Acute) Elevated troponin (Acute) Date of Admission: 10/08/20 Date of Discharge: 10/13/20 - Primary Discharge Diagnosis Acute Problems: Acute delirium - Secondary Discharge Diagnosis Chronic Problems: Chronic Problems Debility (Chronic) Anxiety (Chronic) Bipolar disorder (Chronic) DVT (deep venous thrombosis) (Chronic) Hiatal hernia (Chronic) HTN (hypertension) (Chronic) Bipolar disorder (Chronic) Anxiety disorder (Chronic) History of DVT (deep vein thrombosis) (Chronic) Coronary artery disease (Chronic) Hospital Course and Treatment Imaging Results: Clinical Impression(s) from Imaging Studies Brain CT 10/08/20 18:16 IMPRESSION: Chronic involutional changes of the brain. No acute findings or changes since previous study. Electronically Signed: Scott Stoner MD at 18:32 EST , Service support , ADDENDUM: 10/08/20 1843 IMPRESSION: Chronic involutional changes of the brain. No acute findings or changes since previous study. N.B. : The above information has been verbally conveyed by Scott Stoner MD to Andrea Glass MD, MD, on 10/08/2020 18:36:56 (ET). Electronically Signed: Scott Stoner MD at 18:32 EST , Service support , Head/Neck CTA 10/08/20 18:37 IMPRESSION: No acute thrombosis, occlusions, or hemodynamically significant stenosis. N.B. : The above information has been verbally conveyed by Scott Stoner MD to Andrea Glass on 10/08/2020 19:06:21 (ET). Electronically Signed: Scott Stoner MD at 19:07 EST , Service support , ADDENDUM: 10/08/20 1914 IMPRESSION: No acute thrombosis, occlusions, or hemodynamically significant stenosis. N.B. : The above information has been verbally conveyed by Scott Stoner MD to Andrea Glass on 10/08/2020 19:06:21 (ET). Electronically Signed: Scott Stoner MD at 19:07 EST , Service support , Chest X-Ray 10/08/20 18:47 IMPRESSION: Cannot exclude atelectasis or infiltrate and/or small effusion in the left lung base. Electronically Signed: Scott Stoner MD at 19:18 EST , Service support , Brain MRI 10/09/20 09:30 IMPRESSION: Involutional changes of the brain, as described above. Electronically Signed: Andrea Ceballos MD at 11:13 EST , Service support , Operations: None Summary of Care Provided: he patient is a 79 year old F [] Patient is an 79-year-old lady with underlying history of bipolar disorder who was transferred from the transitional care unit to the ED with altered mental status, difficulty swallowing as well as drooling. Admitted to monitored bed for subsequent management 1. . Acute encephalopathy ?Patient was on Xanax discontinued was on Zyprexa held as well -10/12/2020; seen per nursing staff had a rough night and confusion and had to be moved closer to the nursing station. Patient however appears much calmer this a.m. and is more coherent compared to the day prior. Did review patient medications with discontinuation of Sinemet which was recently initiated. Did restart patient Zyprexa -10/13/2020 remains significantly delirious do suspect patient may be having acute exacerbation of her bipolar disorder. Will benefit from crisis eval and possibly psych admission consult subsequently placed with case management to assist with disposition -10/13/2020; patient was accepted for transfer to an inpatient [facility] 2. Suspected aspiration pneumonia ?Patient placed on Unasyn 3. Hypertension - Blood pressure controlled, home medications continued with dose adjustment as needed 4. Dyslipidemia -Patient is on statin therapy, continued at home dose 5. Chronically elevated troponin 6. Parkinson's disease ?Patient is on immediate continue 7. Strokelike symptoms ?Patient was placed on NIH score, underwent subsequent evaluation with both CT MRI of the brain both negative for acute CVA. Patient was seen in consultation by SOC telemedicine (neurology) plan is for patient to undergo subsequent evaluation with EEG ?10/13/2020; the EEG supported diagnosis of mild global encephalopathy of nonspecific etiology which could be seen in toxic, metabolic as well as diffuse in both focal structural process, no epileptiform potentials were observed 8. Suspected dementia 9. Acute cystitis ?Patient is on Unasyn 10. DVT prophylaxis ?Lovenox 1. Hypokalemia ?Corrected per protocol Patient Problems: Active and Suspected Problems Hyponatremia (Acute) Aspiration pneumonia (Acute) Dysphagia (Acute) Stroke-like symptoms (Acute) Acute hyponatremia (Acute) Elevated troponin (Acute) - Physical Exam Vitals/I&O's: Vital Signs Temp Pulse Resp BP Pulse Ox 98.3 F 88 16 136/64 H 93 10/13/20 19:41 10/13/20 19:41 10/13/20 19:41 10/13/20 19:41 10/13/20 19:41 Oxygen Flow Rate (L/min) 2 Oxygen Delivery Method Room Air Weight: 66.3 kg Body Mass Index (BMI) 24.3 Finger Stick Blood Glucose 97 Intake and Output for Last 24 Hours 10/12/20 10/13/20 10/14/20 23:59 23:59 23:59 Intake Total 1551 / 1551 2896 / 2896 Output Total 590 / 590 Balance 1551 / 1551 2306 / 2306 General: Cooperative Neck: Supple Neurological: Neuro grossly intact Microbiology Past 72 Hours 10/13/20 16:00 Mucosa - Nose SARS-CoV-2 Antigen (Rapid) - Final Laboratory Results 10/13/20 06:08: Phosphorus 2.7 10/13/20 16:00: Urine Color Yellow, Urine Clarity Clear, Urine pH 7.0, Ur Specific [place] 1.010, Urine Protein 30 H, Urine Glucose (UA) Normal, Urine Ketones 5 H, Urine Occult Blood Negative, Urine Nitrite Negative, Urine Bilirubin Negative, Urine Urobilinogen Normal, Ur Leukocyte Esterase 25 H, Urine RBC 0 SEEN, Urine WBC 5-10 SEEN, Ur Squamous Epith Cells 0 SEEN, Urine Bacteria 0 SEEN, Urine Mucus 0 SEEN Discharge Diet: No Restrictions Discharge Activity: Return to Normal Activity Home Medications: Medications to take at Discharge Olanzapine [Zyprexa] 2.5 mg PO DAILY 08/12/16 Olanzapine [Zyprexa] 10 mg PO QHS 08/12/16 Senna [Senokot] 2 tablet PO BID 08/12/16 Timolol 0.5% [Timoptic] 1 drop EACH EYE BID 01/16/17 ALPRAZolam [Xanax] 0.5 mg PO TID PRN #9 tablet 01/19/17 Divalproex Sodium 500 mg PO QHS 09/21/20 Metoprolol Tartrate [Lopressor (beta caas)] 100 mg PO BID 09/21/20 Trazodone HCl 100 - 200 mg PO QHS 09/21/20 Aspirin E.C. [Ecotrin] 81 mg PO DAILY@0800 09/28/20 Amlodipine [Norvasc] 5 mg PO DAILY 10/08/20 Bisacodyl 10 mg RC DAILY PRN PRN 10/08/20 Losartan Potassium [Cozaar] 100 mg PO DAILY 10/08/20 Magnesium Hydroxide [Milk Of Magnesia] 30 ml PO DAILY PRN PRN 10/08/20 Menthol/Zinc Oxide [Calmoseptine Ointment] 71 gm TP BID 10/08/20 Mirtazapine 7.5 mg PO QHS 10/08/20 Nystatin [Nystop] 1 applic TP BID 10/08/20 Polyethylene Glycol 3350 [Miralax] 17 gm PO DAILY 10/08/20 Primary Care Physician: Edu Hdz MD [Primary Care Provider] - Disposition: Psych Hospital or Unit Minutes spent on discharge:: 45 Patient Condition:: Stable Medical Necessity - Tobacco Use Smoking Status: Former smoker Meaningful Use Info Meaningful Use Diagnoses (Choose all that apply): None applicable Inpatient E&M: 65309 Disch Hosp
== END 2020-10-13 20:00 | DRG 91 ==
LOC: ED 19:33 → PCU 21:02
PROVIDERS: Family Medicine; Internal Medicine; Admitting Provider Hospitalist; Emergency Provider Emergency Medicine; PCP Family Medicine; Visit Provider Internal Medicine
DX: G92 Toxic encephalopathy (principal); J69.0 Pneumonitis due to inhalation of food and vomit; N30.00 Acute cystitis without hematuria; R47.01 Aphasia; E87.1 Hypo-osmolality and hyponatremia; F31.9 Bipolar disorder, unspecified; R13.10 Dysphagia, unspecified; I25.10 Atherosclerotic heart disease of native coronary artery without angina pectoris; I10 Essential (primary) hypertension; E87.6 Hypokalemia; R45.1 Restlessness and agitation; F03.90 Unspecified dementia, unspecified severity, without behavioral disturbance, psychotic disturbance, mood disturbance, and anxiety; Z20.822 Contact with and (suspected) exposure to COVID-19; E78.5 Hyperlipidemia, unspecified; F41.9 Anxiety disorder, unspecified; Z79.82 Long term (current) use of aspirin; Z79.899 Other long term (current) drug therapy; Z86.73 Personal history of transient ischemic attack (TIA), and cerebral infarction without residual deficits; Z86.718 Personal history of other venous thrombosis and embolism; Z87.891 Personal history of nicotine dependence; Z96.649 Presence of unspecified artificial hip joint
CPT/HCPCS: 36415; 70450; 70496; 70498; 70551; 71045; 80048; 80061; 80164; 81001; 82140; 82607; 82962; 83036; 83735; 84100; 84484; 85025; 85027; 85610; 85730; 87070; 87205; 87426; 92526; 92610; 93005; 94762; 95819; 97110; 97116; 97162; 97165; 97530; 97535; 97802; 99284; J7030; J7040; Q9967; A4216; J0295

== ENCOUNTER → 2022-07-01 | Outpatient (CLI) | payer MEDICARE, OTHER, SELFPAY ==
[2020-09-21 11:47] VITALS: BMI 25.0
[2022-07-01 11:47] LABS: Color, Urine Yellow (Yellow); Glucose, Dipstick Normal (Normal); Ketone-Dipstick Negative (Negative); Leukocyte Esterase-Dipstick 100 /ul (Negative); Nitrite-Dipstick Negative (Negative); Occult Blood-Urine Negative /ul (Negative); Protein-Dipstick 15 mg/dl (Negative); Specific Gravity, Urine 1.015 (1.002-1.030); Urine Bilirubin Dipstick Negative (Negative); Urine Clarity Clear (Clear); Urine Urobilinogen Normal (Normal)
== END | disposition home or self-care (01) ==
LOC: HHLAB 11:19
PROVIDERS: PCP Family Medicine
DX: I82.402 Acute embolism and thrombosis of unspecified deep veins of left lower extremity (principal); J96.20 Acute and chronic respiratory failure, unspecified whether with hypoxia or hypercapnia; G93.41 Metabolic encephalopathy
CPT/HCPCS: 81002; 87086; 87088

== ENCOUNTER 2022-07-18 18:17 | Outpatient (RCR) | payer MEDICARE, OTHER, SELFPAY ==
[2020-09-21 11:47] VITALS: BMI 25.0
[2022-07-18 18:38] LABS: Color, Urine Yellow (Yellow); Glucose, Dipstick Normal (Normal); Ketone-Dipstick Negative (Negative); Leukocyte Esterase-Dipstick 100 /ul (Negative); Nitrite-Dipstick Negative (Negative); Occult Blood-Urine Negative /ul (Negative); Protein-Dipstick 30 mg/dl (Negative); Specific Gravity, Urine 1.015 (1.002-1.030); Urine Bilirubin Dipstick Negative (Negative); Urine Clarity Clear (Clear); Urine Urobilinogen Normal (Normal); Urine pH 6.5 (5.0 - 8.0)
== END 2022-07-18 19:17 ==
LOC: HHLAB 18:17
PROVIDERS: PCP Family Medicine; Visit Provider Family Medicine
DX: R30.0 Dysuria (principal)
CPT/HCPCS: 81002; 87086; 87088